=== PATIENT | female | born 1960 | race Caucasian/White ===

== ENCOUNTER 2017-04-21 06:56 | Inpatient (IN) | payer MEDICAID ==
[~2017-04-21] VITALS: Ht 152.4 cm; Wt 61.7 kg
[2017-04-21] VITALS (15 sets, daily range): BP systolic 96–150; BP diastolic 47–64
[~2017-04-21 06:56] MED LIST: CEPH-507 GT
--- OUTSIDE RECORDS SUMMARY | 2017-04-21 08:55 | XMS REPORT | Clinical Summary ---
Author Author [facility] Organization [facility] Address Unknown Phone Unavailable Care Team Providers Care Bond Manager Name Role Phone PCP Unavailable Source Comments Some departments are not documenting in the electronic medical record. If you do not see the information that you expected, contact Release of Information in the Health Information Management department at [phone] for further assistance in locating additional records.[facility] Allergies Active Allergy Reactions Severity Noted Date Comments Lisinopril ANAPHYLAXIS High 09/26/2015 Morphine ITCHING Low 09/26/2015 Current Medications Prescription Sig. Disp. Refills Start End Date Status Date carvedilol (COREG) 12.5 1 Tab twice daily with 11/12/19 Active mg tablet meals. Administer per 16 PEG. aspirin 81 mg chewable Take 1 Tab via feeding 11/12/19 Active tablet tube daily. 16 acetaminophen (TYLENOL) 20.3 mL every 4 hours as 11/12/19 Active 160 mg/5 mL oral solution needed (Temp >38.3 C, 16 pain). Administer per PEG. glycopyrrolate (ROBINUL) 1.5 Tabs three times 11/12/19 Active 1 mg tablet daily. Administer per 16 PEG. atorvastatin (LIPITOR) 20 Take 1 Tab via feeding 11/12/19 Active mg tablet tube daily. 16 amLODIPine (NORVASC) 10 Take 1 Tab via feeding 11/12/19 Active mg tablet tube daily. 16 senna/docusate 10 mL by PEG Tube route 11/12/19 Active (SENOKOT-S) 8.8/50 mg /10 twice daily. 16 mL solution vitamins, multi stress 1 Tab daily. Administer 11/12/19 Active formula (STRESS 600) tab per PEG. 16 citalopram 2mg/ml 5 mL daily. Administer 11/12/19 Active (CELEXA) oral solution per PEG. 16 levothyroxine (SYNTHROID) 1 Tab daily. Administer 11/12/19 Active 200 mcg tablet per PEG. 16 folic acid (FOLVITE) 1 mg 2 Tabs daily. 90 Tab 3 11/12/19 Active tablet 16 thiamine (VITAMIN B-1) 1 Tab daily. 90 Tab 3 11/12/19 Active 100 mg tablet 16 cloNIDine (CATAPRES-TTS Apply 1 Patch to top of 4 Patch 12 11/12/19 Active 1) 0.1 mg/day patch skin as directed every 7 16 days. tiZANidine (ZANAFLEX) 2 Take 1 Tab by mouth twice 30 Tab 0 11/12/19 Active mg tabletIndications: daily. hold for sedation 16 MUSCLE SPASTICITY OF Indications: MUSCLE CEREBRAL ORIGIN SPASTICITY OF CEREBRAL ORIGIN Active Problems Problem Noted Date Dermatitis 11/16/2015 Acute cystitis without hematuria 11/16/2015 Subconjunctival hemorrhage of right eye 11/16/2015 Macrocytic anemia 11/16/2015 Essential hypertension 11/16/2015 Cerebral edema (HCC) 09/27/2015 Stroke 09/26/2015 HTN (hypertension) 09/26/2015 Hypothyroid 09/26/2015 Hyponatremia 09/26/2015 Acute respiratory failure (HCC) 09/26/2015 Immunizations Name Dates Previously Given Next Due Flu Vaccine 10/30/2015 Quadrivalent=>3 Yo (Preservative Free) Pneumococcal Vaccine 10/30/2015 (23-Kimberly Adult) Family History Medical History Relation Name Comments Coronary Artery Disease Diabetes Hypertension Thyroid Disease Diabetes Relation Name Status Comments Social History Tobacco Use Types Packs/Day Years Used Date Current Every Day Smoker Cigarettes 0.25 Alcohol Use Drinks/Week oz/Week Comments Yes 1-2 Standard 0.6 - 1.2 drinks or equivalent Sex Assigned at Date Recorded Not on file Last Filed Vital Signs Vital Sign Reading Time Taken Blood Pressure 134/51 11/12/2015 10:25 AM CDT Pulse 68 11/12/2015 10:25 AM CDT Temperature 38.2 C (100.7 F) 11/12/2015 10:25 AM CDT Respiratory Rate - - Oxygen Saturation 100% 11/12/2015 10:25 AM CDT Inhaled Oxygen - - Concentration Weight 70.5 kg (155 lb 6.8 oz) 10/23/2015 6:00 AM CDT Height 160 cm (5' 2.99") 10/23/2015 6:00 AM CDT Body Mass Index 27.54 10/23/2015 6:00 AM CDT Plan of Treatment Health Maintenance Due Date Last Done Comments HEPATITIS C SCREENING 1960 PHYSICAL (COMPREHENSIVE) 1967 EXAM PERTUSSIS VACCINE 1971 TETANUS VACCINE 1977 CERVICAL CANCER SCREENING 1990 BREAST CANCER SCREENING 2000 COLORECTAL CANCER 2010 SCREENING INFLUENZA VACCINE 05/03/2017 10/30/2015 Results Not on filefrom Last 3 Months
[2017-04-21] MEDS ORDERED: PHARMACY TO DOSE IV SCH (09:30)
[2017-04-21] MEDS ORDERED: PIPERACILLIN SODIUM/TAZOBACTAM 4.5 GM in NS (IVPB) 100 ML IV NR (09:39)
--- NOTE | 2017-04-21 09:48 | History & Physical-Hospitalist ---
HPI History of Present Illness: HPI/Chief Complaint HPI: Ms Shelton is 56yoCF who presented to [facility] after being found in respiratory distress at her group home. She is unable to provide me any history at this time so all information is obtained from review of outside records and from RN at [facility] who I personally called. Per records she was found at group home to have thick white secretions via her trach, sats in the 70s, and respiratory rate in the 30s. She was suction and placed on blowby at [facility] and sats increased to 90s. She was found to have a WBC on 20.8, tachycardiac in the 130s, and CXR reportedly showed a pneumonia though report not available to me at this time. Her lactic acid was WNL at [facility]. Blood cultures were reportedly obtained prior to transfer and she was started on cefepime. Source: RN/MD, other (outside records) Exam Limitations: clinical condition Date Seen 04/21/17 Time Seen by Provider: 09:05 Attending Physician Aurora Harvey MD PCP No,Local Physician Referring Physician Date of Admission Apr 21, 2017 at 08:25 Home Medications & Allergies Home Medications Reviewed patient Home Medication Reconciliation Form Allergies Allergies Coded Allergies lisinopril (Verified Allergy, Unknown, 11/12/15) Uncoded Allergies morphin ( Allergy, Unknown, 11/12/15) Past Uyulcxq-Uurpfw-Pupqrr Hx Patient Social History Employed/Student: unemployed Smoking Status: Unknown if Ever Smoked Recent Foreign Travel: No Contact w/other who traveled: No Surgeries Bowel Surgery (PEG, colostomy), Tracheostomy Respiratory Currently Using CPAP: No Currently Using BIPAP: No Cardiovascular Coronary Artery Disease, Hypertension, Peripheral Vascular Neurological Stroke Gastrointestinal Gastroesophageal Reflux Endocrine Endocrine Disorders: Hypothyroidsim Psychosocial Behavioral Health Disorders: Anxiety, Depression Family Medical History Other Significan Family Hx: Unable to obtain due to clinical condition Review of Systems ROS-Unable to Obtain: Due to clinical condition Constitutional: other (unable to obtain) Physical Exam Physical Exam Vital Signs Vital Sign - Last 12Hours 04/21/17 08:50 Pulse Ox 100 O2 Delivery Trach Collar O2 Flow Rate 10.00 FiO2 35 Capillary Refill : General Appearance: Chronically ill, Mild Distress HEENT: PERRL/EOMI, No Scleral Icterus (R) Neck: Non Tender, Supple Respiratory: Rhonci (bilaterally, R>L) Cardiovascular: Regular Rate, Rhythm, No Edema, No Murmur Gastrointestinal: Normal Bowel Sounds, Non Tender, Soft Extremity: Normal Capillary Refill, Non Tender, No Calf Tenderness Neurologic/Psychiatric: Alert, Aphasia, Other (left sided hemiplegia) Results Results/Procedures Lab Laboratory Tests 04/21/17 11:00 Assessment/Plan Admission Diagnosis Sepsis due to HCAP Diagnosis/Problems Diagnosis/Problems (1) Sepsis Status: Acute Assessment & Plan: WBC of >20, tachycardiac and tachypneic CXR concerning for PNA/effusion Will start on HCAP coverage, Vanc/Zosyn/Levaquin - Has history of MRSA and Pseudomonas No signs of end organ involvement per labs from OSH Blood cultures from OSH, will get sputum culture from suction here Will repeat labs, ABG, and CXR here has lost access multiple times, consult IV team for PICC Qualifiers: Qualified Codes: A41.9 - Sepsis, unspecified organism (2) Tracheostomy care Status: Chronic Assessment & Plan: Trach following CVA Having significant thick secretions during my exam Discussed with RT to start MAT protocol, prn suctioning and will also start Mucomyst Will consult Pulm for assistance (3) 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
[2017-04-21] MEDS ORDERED: RT-ALBUTEROL SULF 2.5 MG/3 ML PRE-MIX VIAL ONE (09:51)
[2017-04-21] MEDS ORDERED: aCETylcysteine 20% (MUCOMYST) 30ML SOLN VIAL ONE (09:51)
[2017-04-21] MEDS: ENOXAPARIN 40 MG/0.4 ML (LOVENOX) SYR SC SCH (09:54)
[2017-04-21] MEDS ORDERED: RT-ALBUTEROL SULF 2.5 MG/3 ML PRE-MIX VIAL IH PRN (10:15)
[2017-04-21] MEDS: NS IV 1000 ML 1,000 ML IV SCH ×2 (10:18→20:56)
[2017-04-21] MEDS: RT-ALBUTEROL SULF 2.5 MG/3 ML PRE-MIX VIAL IH SCH ×2 (10:21→15:17)
[2017-04-21] MEDS: LEVOFLOXACIN 750 MG/150 ML IV 150 ML IV SCH (10:22)
[2017-04-21] MEDS: aCETylcysteine 20% (MUCOMYST) 30ML SOLN VIAL INH SCH ×4 (10:23→21:57)
[2017-04-21 10:27] LABS: ABG BASE EXCESS 1.5 MMOL/L (-2.5-2.5); ABG HCO3 26 MMOL/L (23-27); ABG OXYGEN SATURATION 98 % (94-100); ABG PCO2 43 MMHG (35-45); ABG PO2 92 MMHG (79-93); ABG TCO2 27.2 MMOL/L (21.0-31.0)
[2017-04-21 10:28] LABS: ALLENS TEST YES-POS; PATIENT TEMP 98.6
[2017-04-21] MEDS ORDERED: VANCOMYCIN INJECTION 1,500 MG in NS IV 500 ML 500 ML IV NR (10:30)
[2017-04-21] MEDS ORDERED: OMEPRAZOLE SUSP PEG (10:38)
[2017-04-21] MEDS ORDERED: ENOX40DI8 SC (10:38)
[2017-04-21] MEDS ORDERED: AMLO10TA2 PEG (10:38)
[2017-04-21] MEDS ORDERED: NEOM28.33 TP (10:38)
[2017-04-21] MEDS ORDERED: HYDR-3816 PEG (10:38)
[2017-04-21] MEDS ORDERED: DULO20CA18 PEG (10:38)
[2017-04-21] MEDS ORDERED: NYST15CR TP (10:38)
[2017-04-21] MEDS ORDERED: LACT1CAP8 PEG (10:38)
[2017-04-21] MEDS ORDERED: [UNRECOGNIZED DRUG - CODE] TP (10:38)
[2017-04-21] MEDS ORDERED: [UNRECOGNIZED DRUG - OTHER] TOP (10:38)
[2017-04-21] MEDS ORDERED: LEVO50TA6 PEG (10:38)
[2017-04-21] MEDS ORDERED: LEVO200T6 PEG (10:38)
[2017-04-21] MEDS ORDERED: PROT946L PEG (10:38)
--- NOTE | 2017-04-21 11:04 | Diagnostic Imaging Report ---
INDICATION: Respiratory distress. COMPARISON: 12/26/2015. FINDINGS: Single frontal radiographic view of the chest was obtained and demonstrates normal cardiac silhouette and pulmonary vasculature. Tracheostomy tube is present with tip at the clavicular heads. There has been interval development of patchy airspace disease within the left base, partially obscuring the left hemidiaphragm. Small effusions cannot be excluded. There is no large pneumothorax. Bony structures show no gross acute abnormalities. IMPRESSION: 1. Findings concerning for new patchy infiltrate in the left base. Followup is recommended. Dictated by: Dictated on workstation # [id number]
[2017-04-21 11:05] LABS: BASOPHILS % (AUTO) 0 % (0-10); EOSINOPHILS % (AUTO) 0 % (0-10); LYMPHOCYTES # (AUTO) 1.1 X 10^3 (1.0-4.0); LYMPHOCYTES % (AUTO) 12 % (12-44); MEAN CORPUSCULAR HEMOGLOBIN 32 PG (25-34); MEAN CORPUSCULAR HGB CONC 33 G/DL (32-36); MEAN CORPUSCULAR VOLUME 97 FL (80-99); MEAN PLATELET VOLUME 11.9 FL (7.4-10.4); MONOCYTES # (AUTO) 0.5 X 10^3 (0.0-1.0); MONOCYTES % (AUTO) 5 % (0-12); NEUTROPHILS # (AUTO) 7.5 X 10^3 (1.8-7.8); NEUTROPHILS % (AUTO) 82 % (42-75); PLATELET COUNT 148 10^3/uL (130-400); RED BLOOD COUNT 3.43 10^6/uL (4.35-5.85); RED CELL DISTRIBUTION WIDTH 13.4 % (10.0-14.5); WHITE BLOOD COUNT 9.1 10^3/uL (4.3-11.0)
[2017-04-21 11:25] LABS: CALCIUM 8.9 MG/DL (8.5-10.1); CREATININE SERUM 1.03 MG/DL (0.60-1.30); POTASSIUM 4.5 MMOL/L (3.6-5.0)
--- NOTE | 2017-04-21 12:07 | Pulmonary Consultation ---
History of Present Illness History of Present Illness Date of Consultation 04/21/17 12:01 Time Seen by Provider: 12:01 Date of Admission History of Present Illness 56yo with hx of tracheostomy presented to [facility] secondary to progressive respiratory distress at [facility]. She has been having thick white secretions per tracheostomy tube. Sp02 was found to be in the 70's and RR was in the 30's. Labs and radiology reviewed. She has no leukocytosis and CXR shows some infiltration LLL. Unable to obtain ROS. I am consulted for pulmonary management. Allergies and Home Medications Allergies Coded Allergies: lisinopril (Verified Allergy, Unknown, 11/12/15) Uncoded Allergies: morphin (Allergy, Unknown, 11/12/15) Home Medications Amlodipine Besylate 10 Mg Tablet, 10 MG PEG DAILY, (Reported) HOLD AND NOTIFY PHYSICIAN FOR SBP <100 AND HR <60 Duloxetine HCl 20 Mg Capsule.dr, 20 MG PEG DAILY, (Reported) Enoxaparin Sodium 40 Mg/0.4 Ml Syringe, 40 MG SC DAILY, (Reported) Hydrocodone/Acetaminophen 1 Each Tablet, 1 TAB PEG DAILY PRN for PAIN-MODERATE, (Reported) Lactobacillus Acidophilus 1 Each Capsule, 1 CAP PEG DAILY, (Reported) Levothyroxine Sodium 200 Mcg Tablet, 200 MCG PEG DAILY, (Reported) TAKES ALONG WITH 50MCG TABLET FOR A TOTAL DAILY DOSE OF 250MCG Levothyroxine Sodium 50 Mcg Tablet, 50 MCG PEG DAILY, (Reported) TAKES ALONG WITH 200MCG TABLET FOR A TOTAL DAILY DOSE OF 250MCG Neomycin Huizar/Bacitrac Zn/Poly 28.3 Gm Oint...g., TP DAILY, (Reported) APPLY TO AROUND PEG TUBE DAILY FOR REDNESS UNTIL HEALED Nystatin 15 Gm Cream..g., TP BID, (Reported) Protein Supplement 946 Ml Liquid, 30 ML PEG DAILY, (Reported) Pyrithione Zinc 207 Ml Shampoo, TP TuThSa, (Reported) [Omeprazole Susp] , 20 MG PEG DAILY, (Reported) [Skin Prep Wipes] , TOP BID, (Reported) APPLY TO HEELS Past Hkaluzv-Zujdcd-Dtbxup Hx Patient Social History Smoking Status: Unknown if Ever Smoked Recent Foreign Travel: No Contact w/Someone Who Travel: No Surgeries Surgeries: Bowel Surgery (PEG, colostomy), Tracheostomy Respiratory Respiratory Disorders: Asthma, COPD Currently Using CPAP: No Currently Using BIPAP: No Cardiovascular Cardiac Disorders: Coronary Artery Disease, Hypertension, Peripheral Vascular Neurological Neurological Disorders: Stroke Gastrointestinal Gastrointestinal Disorders: Gastroesophageal Reflux Endocrine Endocrine Disorders: Hypothyroidsim Psychosocial Behavioral Health Disorders: Anxiety, Depression Review of Systems Time Seen by Provider: 06:18 Exam Exam Vital Signs Date Time Temp Pulse Resp B/P (MAP) Pulse Ox O2 Delivery O2 Flow Rate FiO2 04/21/17 10:23 100 Trach Collar 10.00 35 04/21/17 08:50 100 Trach Collar 10.00 35 04/21/17 08:17 89 General Appearance: Chronically ill, Mild Distress HEENT: PERRL/EOMI, No Scleral Icterus (R) Neck: Non Tender, Supple Respiratory: Rhonci (bilaterally, R>L) Cardiovascular: Regular Rate, Rhythm, No Edema, No Murmur Gastrointestinal: non tender, soft, no organomegaly Extremity: Normal Capillary Refill, Non Tender, No Calf Tenderness Neurologic/Psychiatric: Alert, Aphasia, Other (left sided hemiplegia) Skin: Normal Color, Warm/Dry Lymphatic: No Adenopathy Results Lab Laboratory Tests 04/21/17 11:00 Assessment/Plan Assessment/Plan Acute respiratory distress probably secondary to mucous plugging and pneumonia -Continue SVNS with duoneb and mucomyst -frequent Tracheal suctioning -High flow oxygen with humidity -IVF NS 100cc/hr Mucous plugging with copious amounts of sputum -DuoNeb Q4 with Mucomyst. PNA with sepsis -Continue Abx for now await cultures -- vanco, cefepime, and Levaquin Hx of CVA 09/2015 which led to her having a chronic tracheostomy tube and PEG tube -From [facility] (pt has court appt KENNETH Nolasco ) -Pt has a size 6 cuffed unfenestrated tracheostomy tube -According to patient tracheostomy tube was changed out 4 months ago -Currently cuff is inflated pt states cuff is not always inflated Chronic debility Aphasia 255 Diagnosis/Problems Problems/Diagonsis (1) Sepsis Status: Acute Assessment & Plan: WBC of >20, tachycardiac and tachypneic CXR concerning for PNA/effusion Will start on HCAP coverage, Vanc/Zosyn/Levaquin - Has history of MRSA and Pseudomonas No signs of end organ involvement per labs from OSH Blood cultures from OSH, will get sputum culture from suction here Will repeat labs, ABG, and CXR here has lost access multiple times, consult IV team for PICC Qualifiers: Qualified Codes: A41.9 - Sepsis, unspecified organism (2) Tracheostomy care Status: Chronic Assessment & Plan: Trach following CVA Having significant thick secretions during my exam Discussed with RT to start MAT protocol, prn suctioning and will also start Mucomyst Will consult Pulm for assistance (3) 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
[2017-04-21] MEDS ORDERED: methylPREDNISolone 125 MG (Solu-MEDROL) VIAL IVP ONE (16:00)
[2017-04-21] MEDS ORDERED: RT-ALBUTEROL/IPRATROPIUM 3 ML (DUONEB) VIAL INH PRN (16:15)
[2017-04-21] MEDS: PIPERACILLIN SODIUM/TAZOBACTAM 4.5 GM in NS (IVPB) 100 ML IV SCH (16:23)
[2017-04-21] MEDS: RT-ALBUTEROL/IPRATROPIUM 3 ML (DUONEB) VIAL INH SCH ×2 (18:38→21:57)
[2017-04-21] MEDS: HYDROcodone/APAP 7.5 MG/325 MG (LORTAB, LORCET PLUS) TABLET PO PRN (21:11)
[2017-04-21] MEDS: VANCOMYCIN 1 GM/NS 250 ML IVPB IV SCH ×2 (21:11)
[2017-04-21] MEDS: NYSTATIN CREAM (MYCOSTATIN) 30 GM TUBE TP SCH (21:11)
[2017-04-21] MEDS: methylPREDNISolone 40 MG/ML (Solu-MEDROL) VIAL IV SCH (21:11)
[2017-04-22] VITALS (24 sets, daily range): BP systolic 95–159; BP diastolic 39–85
[2017-04-22] MEDS: PIPERACILLIN SODIUM/TAZOBACTAM 4.5 GM in NS (IVPB) 100 ML IV SCH ×3 (00:39→15:44)
[2017-04-22] MEDS: NS IV 1000 ML 1,000 ML IV SCH (00:42)
[2017-04-22] MEDS: RT-ALBUTEROL/IPRATROPIUM 3 ML (DUONEB) VIAL INH SCH ×6 (02:12→22:52)
[2017-04-22] MEDS: aCETylcysteine 20% (MUCOMYST) 30ML SOLN VIAL INH SCH ×6 (02:12→22:53)
[2017-04-22 04:02] LABS: BASOPHILS % (AUTO) 0 % (0-10); EOSINOPHILS % (AUTO) 0 % (0-10); LYMPHOCYTES # (AUTO) 0.2 X 10^3 (1.0-4.0); LYMPHOCYTES % (AUTO) 6 % (12-44); MEAN CORPUSCULAR HEMOGLOBIN 32 PG (25-34); MEAN CORPUSCULAR HGB CONC 33 G/DL (32-36); MEAN CORPUSCULAR VOLUME 97 FL (80-99); MONOCYTES % (AUTO) 1 % (0-12); NEUTROPHILS # (AUTO) 3.1 X 10^3 (1.8-7.8); NEUTROPHILS % (AUTO) 93 % (42-75); PLATELET COUNT 133 10^3/uL (130-400); RED BLOOD COUNT 2.89 10^6/uL (4.35-5.85); RED CELL DISTRIBUTION WIDTH 13.2 % (10.0-14.5); WHITE BLOOD COUNT 3.3 10^3/uL (4.3-11.0)
[2017-04-22 04:19] LABS: ALBUMIN 2.8 GM/DL (3.2-4.5); BILIRUBIN,TOTAL 0.3 MG/DL (0.1-1.0); CALCIUM 8.8 MG/DL (8.5-10.1); CREATININE SERUM 1.12 MG/DL (0.60-1.30); POTASSIUM 3.2 MMOL/L (3.6-5.0); TOTAL PROTEIN 5.6 GM/DL (6.4-8.2)
[2017-04-22 04:40] LABS: BAND NEUTROPHILS 0 %; BASOPHILS % (MANUAL) 0 %; EOSINOPHILS % (MANUAL) 0 %; LYMPHOCYTES % (MANUAL) 3 %; NEUTROPHILS % (MANUAL) 96 %
[2017-04-22 04:41] LABS: ANISOCYTOSIS SLIGHT; POLYCHROMASIA SLIGHT; TEAR DROP CELLS SLIGHT
[2017-04-22] MEDS: POTASSIUM CL 10MEQ/50ML IVPB 50 ML IV SCH ×7 (05:36→11:33)
[2017-04-22] MEDS: methylPREDNISolone 40 MG/ML (Solu-MEDROL) VIAL IV SCH ×4 (05:36→22:13)
[2017-04-22] MEDS: MAGNESIUM 1 GM/100 ML IVPB 100 ML IV SCH ×3 (05:36→06:44)
--- NOTE | 2017-04-22 06:08 | Pulmonary Progress Note ---
Subjective Time Seen by Provider: 06:12 Subjective/Events-last exam PT is doing better today she is only on 21 % oxygen via high flow. Exam Exam Vital Signs Date Time Temp Pulse Resp B/P (MAP) Pulse Ox O2 Delivery O2 Flow Rate FiO2 04/22/17 05:00 97 22 117/47 98 Trach Collar 21.00 8.00 04/22/17 04:00 99 Trach Collar 8.00 21 04/22/17 04:00 98.8 04/22/17 04:00 98 24 117/53 100 Trach Collar 21.00 8.00 04/22/17 03:00 104 26 103/60 100 Trach Collar 21.00 8.00 04/22/17 02:12 100 Trach Collar 8.00 28 04/22/17 02:00 93 16 97/39 100 Trach Collar 28.00 8.00 04/22/17 01:00 85 17 95/44 100 Trach Collar 28.00 8.00 04/22/17 00:55 93 04/22/17 00:48 97.9 Trach Collar 28.00 8.00 04/22/17 00:00 90 16 106/47 100 Trach Collar 28.00 8.00 04/22/17 00:00 97 Trach Collar 8.00 28 04/21/17 23:00 96 21 99/49 100 Trach Collar 28.00 8.00 04/21/17 22:00 89 20 108/51 100 Trach Collar 28.00 8.00 04/21/17 21:58 100 Trach Collar 8.00 28 04/21/17 21:00 80 24 113/52 100 Trach Collar 28.00 8.00 04/21/17 20:00 82 26 110/47 100 Trach Collar 28.00 8.00 04/21/17 20:00 95 Trach Collar 8.00 28 04/21/17 19:32 98.1 87 22 115/55 100 Trach Collar 28.00 8.00 04/21/17 19:00 84 26 115/55 100 Trach Collar 28.00 8.00 04/21/17 19:00 84 04/21/17 18:39 100 Trach Collar 8.00 30 04/21/17 18:00 113/53 04/21/17 18:00 86 22 100 Trach Collar 30.00 8.00 04/21/17 17:00 79 29 109/64 100 Trach Collar 30.00 8.00 04/21/17 16:00 Trach Collar 04/21/17 16:00 91 41 100 Trach Collar 30.00 8.00 04/21/17 16:00 97.0 04/21/17 15:17 97 Trach Collar 8.00 30 04/21/17 15:00 87 30 111/55 100 Trach Collar 30.00 8.00 04/21/17 14:00 107 23 116/59 96 Trach Collar 30.00 8.00 04/21/17 13:00 92 20 114/54 98 Trach Collar 30.00 8.00 04/21/17 13:00 96 04/21/17 12:30 98.1 04/21/17 12:00 98.1 04/21/17 12:00 96 90 Trach Collar 30.00 8.00 04/21/17 11:00 108 116/47 97 Trach Collar 30.00 8.00 04/21/17 10:23 100 Trach Collar 10.00 35 04/21/17 10:00 123 13 150/60 95 Trach Collar 30.00 8.00 04/21/17 09:15 90 28 96/48 98 Trach Collar 30.00 15.00 04/21/17 08:50 100 Trach Collar 10.00 35 04/21/17 08:17 89 04/21/17 08:15 99.6 84 24 106/54 100 Trach Collar 2.00 General Appearance: Chronically ill, Mild Distress HEENT: PERRL/EOMI, No Scleral Icterus (R) Neck: Non Tender, Supple Respiratory: Rhonci (bilaterally, R>L) Cardiovascular: Regular Rate, Rhythm, No Edema, No Murmur Gastrointestinal: non tender, soft, no organomegaly, no pulsatile mass Extremity: Normal Capillary Refill, Non Tender, No Calf Tenderness Neurologic/Psychiatric: Alert, Aphasia, Other (left sided hemiplegia) Skin: Normal Color, Warm/Dry Lymphatic: No Adenopathy Results Lab Laboratory Tests 04/21/17 11:00 04/22/17 03:50 Assessment/Plan Assessment/Plan Acute respiratory distress probably secondary to mucous plugging and pneumonia -Continue SVNS with duoneb and mucomyst -frequent Tracheal suctioning -High flow oxygen with humidity -IVF NS 100cc/hr Mucous plugging with copious amounts of sputum -Will do bronchoscopy today -RN/RT are suctioning every hour -DuoNeb Q4 with Mucomyst. PNA with sepsis -Continue Abx for now await cultures -- vanco, cefepime, and Levaquin Hx of CVA 09/2015 which led to her having a chronic tracheostomy tube and PEG tube -From [facility] (pt has court appt POA Reta Nolasco ) -Pt has a size 6 cuffed unfenestrated tracheostomy tube -According to patient tracheostomy tube was changed out 4 months ago -Currently cuff is inflated pt states cuff is not always inflated Metabolic acidosis -Monitor Hypokalemia and hypomagnesium -replace Chronic debility Aphasia 233 Clinical Quality Measures DVT/VTE Risk/Contraindication: Risk Factor Score Per Nursin RFS Level Per Nursing on Admit: 4+=Very High JONATHAN BASSETT DO Apr 22, 2017 06:08
--- NOTE | 2017-04-22 07:51 | Progress Note-Hospitalist ---
Subjective HPI/CC On Admission Date Seen by Provider: Apr 22, 2017 Time Seen by Provider: 07:15 HPI: Ms Shelton is 56yoCF who presented to [facility]. She is unable to provide me any history at this time so all information is obtained from review of outside records and from RN at [facility] who I personally called. Per records she was found at prison to have thick white secretions via her trach, sats in the 70s, and respiratory rate in the 30s. She was suction and placed on blowby at [facility] and sats increased to 90s. She was found to have a WBC on 20.8, tachycardiac in the 130s, and CXR reportedly showed a pneumonia though report not available to me at this time. Her lactic acid was WNL at [facility]. Blood cultures were reportedly obtained prior to transfer and she was started on cefepime. Subjective/Events-last exam Pt reports feeling better from yesterday. She was unable to communicate with me in also any fashion yesterday. Since then she has been able to answer some yes and no questions. She has no complaints today. She understands the plan for a bronch today. Objective Exam Vital Signs Vital Sign - Last 12Hours 04/21/17 04/21/17 08:15 08:50 Temp 99.6 Pulse 84 Resp 24 B/P (MAP) 106/54 Pulse Ox 100 O2 Delivery Trach Collar O2 Flow Rate 2.00 FiO2 35 Capillary Refill : General Appearance: No Apparent Distress, WD/WN Respiratory: No Accessory Muscle Use, No Respiratory Distress, Rhonci Cardiovascular: Regular Rate, Rhythm, No Edema, No Murmur Gastrointestinal: Non Tender, Soft, Other (PEG and colostomy in place) Extremity: Non Tender, No Calf Tenderness, No Pedal Edema Neurologic/Psychiatric: Alert, Aphasia, Motor Weakness (left side), Other ( appears appropriately oriented) Results/Procedures Lab Laboratory Tests 04/21/17 11:00 04/22/17 03:50 Assessment/Plan Assessment and Plan Assess & Plan/Chief Complaint See Problems Diagnosis/Problems Diagnosis/Problems (1) HCAP (healthcare-associated pneumonia) Assessment & Plan: Sepsis resolved since admission Continue on Vanc/Zosyn/Levaquin Plan for Bronch today Await culture results from outside hospital (2) Sepsis Status: Resolved Qualifiers: Qualified Codes: A41.9 - Sepsis, unspecified organism (3) Tracheostomy care Status: Chronic Assessment & Plan: Trach following CVA Discussed with RT to start MAT protocol, prn suctioning and Mucomyst Will consult Pulm for assistance Plan for Bronch today (4) Metabolic acidosis Status: Acute Assessment & Plan: No gap Likely due to hyperchloremia Will adjust fluids (5) Hypokalemia Status: Acute Assessment & Plan: On K protocol (6) 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 Status: Chronic Assessment & Plan: s/p CVA Has trach, peg, colostomy Aphasia Left sided hemiplegia reportedly has court appointed guardian (7) CAD (coronary artery disease) Status: Chronic Assessment & Plan: Continue home meds (8) Essential (primary) hypertension Status: Chronic Assessment & Plan: BP well controlled, continue home meds (9) Hypothyroidism Status: Chronic Assessment & Plan: Continue home meds (10) Major depression Status: Chronic Assessment & Plan: Continue Sertaline (11) Prophylactic measure Assessment & Plan: Lovenox 1/2 NS at 100ml/hr NPO for now then resume tube feeds after bronch AURORA RUCKER MD Apr 22, 2017 07:51
[2017-04-22] MEDS: LEVOTHYROXINE 100 MCG (LEVOTHROID) TAB PEG SCH (08:56)
[2017-04-22] MEDS: DULoxetine 20 MG (CYMBALTA) CAP PEG SCH (08:56)
[2017-04-22] MEDS: LEVOTHYROXINE 50 MCG (LEVOTHROID) TAB PEG SCH (08:57)
[2017-04-22] MEDS: LACTOBACILLUS Acidoph/Bulgar 1 GM (LACTINEX) PACKET PEG SCH (08:58)
[2017-04-22] MEDS: NYSTATIN CREAM (MYCOSTATIN) 30 GM TUBE TP SCH ×2 (08:59→21:49)
[2017-04-22] MEDS: NEO/POLY/BAC (NEOSPORIN) OINT 15 GM TUBE TP SCH (08:59)
[2017-04-22] MEDS: ENOXAPARIN 40 MG/0.4 ML (LOVENOX) SYR SC SCH (08:59)
[2017-04-22] MEDS ORDERED: TROUGH ORDER-PHARMACY XX NR (09:00)
[2017-04-22] MEDS ORDERED: OMEPRAZOLE 20 MG PEG SCH (09:00)
[2017-04-22] MEDS: PANTOPRAZOLE 2 MG/ML LIQUID 200 ML (PROTONIX) PEG SCH ×3 (09:15)
[2017-04-22] MEDS: 1/2 NS IV SOLUTION 1,000 ML IV SCH ×2 (09:16→20:15)
--- NOTE | 2017-04-22 09:36 | Diagnostic Imaging Report ---
INDICATION: Pneumonia, shortness of breath. TECHNIQUE: Single view chest 3:23 AM. CORRELATION STUDY: 04/21/2017 FINDINGS: Tracheostomy tube remains in place. A right-sided central line has been placed since prior study tip at the expected location of the cavoatrial junction. Heart size, mediastinal and vasculature within normal limits. Lung ferrell overall relatively clear of infiltrate. Small effusions however do appear to be present. IMPRESSION: 1. Placement of right-sided central line. No pneumothorax. 2. Likely trace pleural effusions. No definitive infiltrate on followup. Dictated by: Dictated on workstation # [id number]
[2017-04-22] MEDS: VANCOMYCIN 1 GM/NS 250 ML IVPB IV SCH ×2 (11:06)
[2017-04-22] MEDS: LEVOFLOXACIN 750 MG/150 ML IV 150 ML IV SCH (11:26)
[2017-04-22] MEDS: HYDROcodone/APAP 7.5 MG/325 MG (LORTAB, LORCET PLUS) TABLET PO PRN (18:57)
[2017-04-23] VITALS (16 sets, daily range): BP systolic 120–162; BP diastolic 42–75
[2017-04-23] MEDS: PIPERACILLIN SODIUM/TAZOBACTAM 4.5 GM in NS (IVPB) 100 ML IV SCH ×3 (00:15→16:56)
[2017-04-23] MEDS: aCETylcysteine 20% (MUCOMYST) 30ML SOLN VIAL INH SCH ×6 (02:50→22:29)
[2017-04-23] MEDS: RT-ALBUTEROL/IPRATROPIUM 3 ML (DUONEB) VIAL INH SCH ×6 (02:50→22:29)
[2017-04-23] MEDS: methylPREDNISolone 40 MG/ML (Solu-MEDROL) VIAL IV SCH ×4 (04:21→22:44)
[2017-04-23 05:00] LABS: BASOPHILS % (AUTO) 0 % (0-10); EOSINOPHILS % (AUTO) 0 % (0-10); LYMPHOCYTES # (AUTO) 0.5 X 10^3 (1.0-4.0); LYMPHOCYTES % (AUTO) 7 % (12-44); MEAN CORPUSCULAR HEMOGLOBIN 32 PG (25-34); MEAN CORPUSCULAR HGB CONC 33 G/DL (32-36); MEAN CORPUSCULAR VOLUME 96 FL (80-99); MEAN PLATELET VOLUME 12.1 FL (7.4-10.4); MONOCYTES # (AUTO) 0.2 X 10^3 (0.0-1.0); MONOCYTES % (AUTO) 3 % (0-12); NEUTROPHILS % (AUTO) 89 % (42-75); PLATELET COUNT 146 10^3/uL (130-400); RED BLOOD COUNT 3.15 10^6/uL (4.35-5.85); RED CELL DISTRIBUTION WIDTH 13.4 % (10.0-14.5); WHITE BLOOD COUNT 6.7 10^3/uL (4.3-11.0)
[2017-04-23 05:24] LABS: ALBUMIN 3.1 GM/DL (3.2-4.5); BILIRUBIN,TOTAL 0.3 MG/DL (0.1-1.0); CALCIUM 9.2 MG/DL (8.5-10.1); CREATININE SERUM 1.03 MG/DL (0.60-1.30); POTASSIUM 3.2 MMOL/L (3.6-5.0); TOTAL PROTEIN 6.1 GM/DL (6.4-8.2)
[2017-04-23 05:28] LABS: MAGNESIUM 1.7 MG/DL (1.8-2.4); PHOSPHORUS 3.1 MG/DL (2.3-4.7)
[2017-04-23] MEDS: POTASSIUM CL 10MEQ/50ML IVPB 50 ML IV SCH ×5 (05:55→11:03)
[2017-04-23] MEDS: MAGNESIUM 1 GM/100 ML IVPB 100 ML IV SCH ×3 (06:00→07:00)
[2017-04-23] MEDS: 1/2 NS IV SOLUTION 1,000 ML IV SCH (06:07)
[2017-04-23] MEDS ORDERED: POTASSIUM CHLORIDE INJ 20 MEQ in 1/2 NS IV SOLUTION 1,000 ML IV SCH (06:27)
--- NOTE | 2017-04-23 06:32 | Pulmonary Progress Note ---
Subjective Time Seen by Provider: 06:31 Subjective/Events-last exam PT is still producing a lot of mucous. Exam Exam Vital Signs Date Time Temp Pulse Resp B/P (MAP) Pulse Ox O2 Delivery O2 Flow Rate FiO2 04/23/17 06:00 74 13 132/59 100 Trach Collar 21.00 8.00 04/23/17 05:00 51 18 144/54 100 Trach Collar 21.00 8.00 04/23/17 04:00 100 Trach Collar 8.00 21 04/23/17 04:00 97.2 68 16 138/44 99 Trach Collar 21.00 8.00 04/23/17 03:00 93 19 133/56 99 Trach Collar 21.00 8.00 04/23/17 02:50 100 Trach Collar 8.00 21 04/23/17 02:00 65 14 130/42 100 Trach Collar 21.00 8.00 04/23/17 01:00 93 04/23/17 01:00 80 18 133/57 100 Trach Collar 21.00 8.00 04/23/17 00:00 100 Trach Collar 8.00 21 04/23/17 00:00 97.3 76 18 137/51 99 Trach Collar 21.00 8.00 04/22/17 23:00 89 21 145/75 100 Trach Collar 21.00 8.00 04/22/17 22:53 100 Trach Collar 8.00 21 04/22/17 22:00 88 26 125/47 96 Trach Collar 21.00 8.00 04/22/17 21:00 65 17 135/55 100 Trach Collar 21.00 8.00 04/22/17 20:00 98.6 91 16 129/81 99 Trach Collar 21.00 8.00 04/22/17 20:00 100 Trach Collar 8.00 21 04/22/17 19:11 99 Trach Collar 8.00 21 04/22/17 19:00 105 19 129/85 99 Trach Collar 21.00 8.00 04/22/17 19:00 101 04/22/17 18:00 94 18 150/62 100 Trach Collar 21.00 8.00 04/22/17 17:00 106 11 159/60 99 Trach Collar 21.00 8.00 04/22/17 16:02 100 Trach Collar 8.00 21 04/22/17 16:00 98.8 04/22/17 16:00 117 8 151/66 99 Trach Collar 21.00 8.00 04/22/17 15:00 102 17 149/74 99 Trach Collar 21.00 8.00 04/22/17 14:00 100 27 122/76 100 Trach Collar 21.00 8.00 04/22/17 13:53 100 Trach Collar 8.00 21 04/22/17 13:00 96 22 139/45 100 Trach Collar 21.00 8.00 04/22/17 13:00 97 04/22/17 12:20 100 Trach Collar 8.00 21 04/22/17 12:00 98.5 04/22/17 12:00 98 26 134/61 100 Trach Collar 21.00 8.00 04/22/17 11:00 93 21 134/60 99 Trach Collar 21.00 8.00 04/22/17 10:00 102 18 139/58 100 Trach Collar 21.00 8.00 04/22/17 09:53 95 Trach Collar 8.00 21 04/22/17 09:00 92 26 122/48 100 Trach Collar 21.00 8.00 04/22/17 08:30 100 Trach Collar 8.00 21 04/22/17 08:00 101 12 130/51 100 Trach Collar 21.00 8.00 04/22/17 08:00 98.4 04/22/17 07:00 96 04/22/17 07:00 102 18 125/53 100 Trach Collar 21.00 8.00 04/22/17 06:28 100 Trach Collar 8.00 21 General Appearance: No Apparent Distress, WD/WN, Anxious HEENT: PERRL/EOMI, No Scleral Icterus (R) Neck: Non Tender, Supple Respiratory: No Accessory Muscle Use, No Respiratory Distress, Rhonci Cardiovascular: Regular Rate, Rhythm, No Edema, No Murmur Gastrointestinal: non tender, soft, no organomegaly Extremity: Non Tender, No Calf Tenderness, No Pedal Edema Neurologic/Psychiatric: Alert, Aphasia, Motor Weakness (left side), Other ( appears appropriately oriented) Skin: Normal Color, Warm/Dry Lymphatic: No Adenopathy Results Lab Laboratory Tests 04/21/17 11:00 04/22/17 03:50 04/23/17 04:20 Assessment/Plan Assessment/Plan Acute respiratory distress probably secondary to mucous plugging and pneumonia -Continue SVNS with duoneb and mucomyst -frequent Tracheal suctioning -High flow oxygen with humidity -IVF NS 100cc/hr Mucous plugging with copious amounts of sputum -RN/RT are suctioning every hour -DuoNeb Q4 with Mucomyst. PNA with sepsis -Continue Abx for now await cultures ---D/C Vanco and Levaquin/zosyn C&S reviewed Hx of CVA 09/2015 which led to her having a chronic tracheostomy tube and PEG tube -From [facility] (pt has court appt KENNETH Reta Gaurav ) -Pt has a size 6 cuffed unfenestrated tracheostomy tube -According to patient tracheostomy tube was changed out 4 months ago -Currently cuff is inflated pt states cuff is not always inflated Hypokalemia and hypomagnesium -replace -Add KCL to IVF Chronic debility Aphasia Will transfer to ICU stepdown. Consider [facility] pt still continues to have copious amounts of secretions. Will keep in ICU stepdown to monitor secretions and trach care. 233 Clinical Quality Measures DVT/VTE Risk/Contraindication: Risk Factor Score Per Nursin RFS Level Per Nursing on Admit: 4+=Very High JONATHAN BASSETT DO Apr 23, 2017 06:32
[2017-04-23] MEDS: PANTOPRAZOLE 2 MG/ML LIQUID 200 ML (PROTONIX) PEG SCH ×3 (07:41)
--- NOTE | 2017-04-23 08:05 | Progress Note-Hospitalist ---
Subjective HPI/CC On Admission Date Seen by Provider: Apr 23, 2017 Time Seen by Provider: 07:35 HPI: Ms Shelton is 56yoCF who presented to [facility] after being found in respiratory distress at her halfway. She is unable to provide me any history at this time so all information is obtained from review of outside records and from RN at [facility] who I personally called. Per records she was found at halfway to have thick white secretions via her trach, sats in the 70s, and respiratory rate in the 30s. She was suction and placed on blowby at [facility] and sats increased to 90s. She was found to have a WBC on 20.8, tachycardiac in the 130s, and CXR reportedly showed a pneumonia though report not available to me at this time. Her lactic acid was WNL at [facility]. Blood cultures were reportedly obtained prior to transfer and she was started on cefepime. Subjective/Events-last exam Upon entering room patient had just finished getting suctioned and seemed very uncomfortable. She was indicating that she wanted us to stop suctioning. I discussed options for care if we were to stop suctioning and direct our goals towards comfort. She became veyr tearful and shook her head "no." When I stated explicitly that stopping suctioning her trach may mean we were facing the end of her life she emphatically shook her head no and agreed to continuing prn suctions. Objective Exam Vital Signs Vital Sign - Last 12Hours 04/21/17 04/21/17 08:15 08:50 Temp 99.6 Pulse 84 Resp 24 B/P (MAP) 106/54 Pulse Ox 100 O2 Delivery Trach Collar O2 Flow Rate 2.00 FiO2 35 Capillary Refill : General Appearance: Mild Distress, Other (tearful) HEENT: Other (trach in place) Respiratory: Normal Breath Sounds Cardiovascular: Regular Rate, Rhythm, No Murmur Gastrointestinal: Non Tender, Soft, Other (PEG, colostomy in place) Neurologic/Psychiatric: Alert, Aphasia, Other (left side hemiplegia) Results/Procedures Lab Laboratory Tests 04/23/17 04:20 Assessment/Plan Assessment and Plan Assess & Plan/Chief Complaint See Problems Diagnosis/Problems Diagnosis/Problems (1) HCAP (healthcare-associated pneumonia) Assessment & Plan: Sepsis resolved since admission Morganella Morganii on culture, sensitive to Zosyn Second GNR not yet identified On Zosyn/Levaquin, Vanc DC'd today Await culture results from outside hospital Blood cultures here are negative (2) Tracheostomy care Status: Chronic Assessment & Plan: Trach following CVA Discussed with RT to start MAT protocol, prn suctioning and Mucomyst Will consult Pulm for assistance [place] consulted for evaluation (3) Metabolic acidosis Status: Resolved Assessment & Plan: Improved with fluids (4) Hypokalemia Status: Acute Assessment & Plan: On K protocol (5) 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 Status: Chronic Assessment & Plan: s/p CVA Has trach, peg, colostomy Aphasia Left sided hemiplegia reportedly has court appointed guardian PT/OT (6) CAD (coronary artery disease) Status: Chronic Assessment & Plan: Continue home meds (7) Essential (primary) hypertension Status: Chronic Assessment & Plan: BP well controlled, continue home meds (8) Hypothyroidism Status: Chronic Assessment & Plan: Continue home meds (9) Major depression Status: Chronic Assessment & Plan: Continue Sertaline (10) Prophylactic measure Assessment & Plan: Lovenox Saline Lock Will resume home tube feeds Jevity 1.5 at 50cc/hr with FWF 240cc Q6 AURORA RUCKER MD Apr 23, 2017 08:05
[2017-04-23] MEDS: DULoxetine 20 MG (CYMBALTA) CAP PEG SCH (08:21)
[2017-04-23] MEDS: LACTOBACILLUS Acidoph/Bulgar 1 GM (LACTINEX) PACKET PEG SCH (08:21)
[2017-04-23] MEDS: LEVOTHYROXINE 50 MCG (LEVOTHROID) TAB PEG SCH (08:22)
[2017-04-23] MEDS: LEVOTHYROXINE 100 MCG (LEVOTHROID) TAB PEG SCH (08:22)
[2017-04-23] MEDS: NEO/POLY/BAC (NEOSPORIN) OINT 15 GM TUBE TP SCH (08:24)
[2017-04-23] MEDS: NYSTATIN CREAM (MYCOSTATIN) 30 GM TUBE TP SCH ×2 (08:24→22:44)
[2017-04-23] MEDS: ENOXAPARIN 40 MG/0.4 ML (LOVENOX) SYR SC SCH (08:32)
[2017-04-23] MEDS: 1/2 NS W/KCL 20 MEQ/L 1,000 ML IV SCH (08:38)
--- NOTE | 2017-04-23 08:47 | Diagnostic Imaging Report ---
Portable erect AP chest at 5:13 a.m. INDICATION: Respiratory distress. This exam is less than optimal as the heart and left lung base are partially obscured by the patient's left hand. The heart size is within normal limits and stable when compared to 04/22/2017. The lungs are generally clear. There is no sign of failure, pneumonia, or of a significant pleural effusion. The mediastinum is not widened. The osseous structures are intact. The central venous catheter on the right and the tracheostomy tube seen previously are again evident and no different. IMPRESSION: There is no evidence for an acute cardiopulmonary abnormality on this suboptimal exam. When compared to the previous study there has been no adverse change. Dictated by: Dictated on workstation # [id number]
[2017-04-23] MEDS ORDERED: TROUGH ORDER-PHARMACY XX NR (09:00)
[2017-04-23] MEDS: inSUlin ASPART (NovoLOG) 1 UNIT/0.01 ML (CHARGE PER UNIT) SC SCH ×2 (18:06→22:37)
[2017-04-24] VITALS (15 sets, daily range): BP systolic 151–178; BP diastolic 53–84
[2017-04-24] MEDS: PIPERACILLIN SODIUM/TAZOBACTAM 4.5 GM in NS (IVPB) 100 ML IV SCH ×2 (00:07→09:01)
[2017-04-24] MEDS: aCETylcysteine 20% (MUCOMYST) 30ML SOLN VIAL INH SCH ×2 (03:12→06:10)
[2017-04-24] MEDS: RT-ALBUTEROL/IPRATROPIUM 3 ML (DUONEB) VIAL INH SCH ×3 (03:12→09:33)
[2017-04-24] MEDS: 1/2 NS W/KCL 20 MEQ/L 1,000 ML IV SCH (04:42)
[2017-04-24] MEDS: methylPREDNISolone 40 MG/ML (Solu-MEDROL) VIAL IV SCH ×2 (04:43→10:15)
[2017-04-24 05:01] LABS: BASOPHILS % (AUTO) 0 % (0-10); EOSINOPHILS % (AUTO) 0 % (0-10); LYMPHOCYTES # (AUTO) 0.7 X 10^3 (1.0-4.0); LYMPHOCYTES % (AUTO) 6 % (12-44); MEAN CORPUSCULAR HEMOGLOBIN 32 PG (25-34); MEAN CORPUSCULAR HGB CONC 34 G/DL (32-36); MEAN CORPUSCULAR VOLUME 94 FL (80-99); MONOCYTES # (AUTO) 0.8 X 10^3 (0.0-1.0); MONOCYTES % (AUTO) 6 % (0-12); NEUTROPHILS # (AUTO) 10.9 X 10^3 (1.8-7.8); NEUTROPHILS % (AUTO) 88 % (42-75); PLATELET COUNT 192 10^3/uL (130-400); RED BLOOD COUNT 3.68 10^6/uL (4.35-5.85); RED CELL DISTRIBUTION WIDTH 13.5 % (10.0-14.5); WHITE BLOOD COUNT 12.4 10^3/uL (4.3-11.0)
[2017-04-24 05:41] LABS: MAGNESIUM 2.2 MG/DL (1.8-2.4); PHOSPHORUS 2.1 MG/DL (2.3-4.7)
[2017-04-24 05:43] LABS: ALBUMIN 3.5 GM/DL (3.2-4.5); BILIRUBIN,TOTAL 0.3 MG/DL (0.1-1.0); CALCIUM 9.6 MG/DL (8.5-10.1); CREATININE SERUM 1.09 MG/DL (0.60-1.30); POTASSIUM 3.7 MMOL/L (3.6-5.0); TOTAL PROTEIN 6.8 GM/DL (6.4-8.2)
[2017-04-24] MEDS: POTASSIUM CL 10MEQ/50ML IVPB 50 ML IV SCH (06:35)
[2017-04-24] MEDS: MAGNESIUM 1 GM/100 ML IVPB 100 ML IV SCH (06:35)
[2017-04-24] MEDS: inSUlin ASPART (NovoLOG) 1 UNIT/0.01 ML (CHARGE PER UNIT) SC SCH ×2 (06:36→12:20)
[2017-04-24] MEDS ORDERED: PRED10TA22 PO (07:27)
[2017-04-24] MEDS ORDERED: PIPE4.5V IV (07:27)
--- NOTE | 2017-04-24 08:44 | Discharge Summary-Hospitalist ---
Diagnosis/Chief Complaint Date of Admission Apr 21, 2017 at 08:25 Date of Discharge Discharge Date: Apr 24, 2017 Admission Diagnosis Sepsis due to HCAP Discharge Diagnosis See Problems (1) HCAP (healthcare-associated pneumonia) Assessment & Plan: Sepsis resolved Morganella Morganii, Pseudomonas, Enterobacter and on culture, all sensitive to Zosyn On Zosyn, will complete 4 more days at [facility] Blood cultures here are negative Will DC on slow prednisone taper as well (2) Tracheostomy care Status: Chronic Assessment & Plan: Trach following CVA MAT Protocol, Mucomyst Will need prn suctioning at detention Will consult Pulm for assistance (3) Metabolic acidosis Status: Resolved Assessment & Plan: Improved with fluids (4) Hypokalemia Status: Resolved Assessment & Plan: On K protocol (5) 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 Status: Chronic Assessment & Plan: s/p CVA Has trach, peg, colostomy Aphasia Left sided hemiplegia reportedly has court appointed guardian PT/OT (6) CAD (coronary artery disease) Status: Chronic Assessment & Plan: Continue home meds (7) Essential (primary) hypertension Status: Chronic Assessment & Plan: BP well controlled, continue home meds (8) Hypothyroidism Status: Chronic Assessment & Plan: Continue home meds (9) Major depression Status: Chronic Assessment & Plan: Continue Sertaline (10) Prophylactic measure Assessment & Plan: Lovenox Saline Lock Will resume home tube feeds Jevity 1.5 at 50cc/hr with FWF 240cc Q6 Discharge Summary Consultations Dr. Epstein, Pulmonology Discharge Physical Examination Allergies: Coded Allergies: lisinopril (Verified Allergy, Unknown, 11/12/15) Uncoded Allergies: morphin (Allergy, Unknown, 11/12/15) Vitals & I&Os Vital Signs Date Time Temp Pulse Resp B/P (MAP) Pulse Ox O2 Delivery O2 Flow Rate FiO2 04/24/17 06:10 100 Trach Collar 6.00 21 04/24/17 06:00 89 12 171/64 04/24/17 04:00 96.9 Hospital Course Pt presented as transfer from OSH for acute respiratory failure due to HCAP. She was admitted to our ICu and necessitated frequent suctioning and IV steroids , and IV abx. She was started broad spectrum antibiotics on admission and sputum cultures where obtained during deep suctioning. Pulm was consulted for further assistance of trach care and respiratory failure. Antibiotics were deescalated to Zosyn when sensitivities were available. She was transitioned to oral steroids and DC-ed to [facility] home on a slow taper and with 4 more days of abx. Labs (last 24 hrs) Laboratory Tests 04/23/17 13:20: Glucometer 165H 04/23/17 17:50: Glucometer 158H 04/24/17 04:55: White Blood Count 12.4H, Red Blood Count 3.68L, Hemoglobin 11.9, Hematocrit 35, Mean Corpuscular Volume 94, Mean Corpuscular Hemoglobin 32, Mean Corpuscular Hemoglobin Concent 34, Red Cell Distribution Width 13.5, Platelet Count 192, Mean Platelet Volume 12.0H, Neutrophils (%) (Auto) 88H, Lymphocytes (%) (Auto) 6L, Monocytes (%) (Auto) 6, Eosinophils (%) (Auto) 0, Basophils (%) (Auto) 0, Neutrophils # (Auto) 10.9H, Lymphocytes # (Auto) 0.7L, Monocytes # (Auto) 0.8, Eosinophils # (Auto) 0.0, Basophils # (Auto) 0.0, Sodium Level 142, Potassium Level 3.7, Chloride Level 107, Carbon Dioxide Level 23, Anion Gap 12, Blood Urea Nitrogen 27H, Creatinine 1.09, Estimat Glomerular Filtration Rate 52, BUN/ Creatinine Ratio 25, Glucose Level 156H, Calcium Level 9.6, Phosphorus Level 2.1L, Magnesium Level 2.2, Total Bilirubin 0.3, Aspartate Amino Transf (AST/SGOT ) 15, Alanine Aminotransferase (ALT/SGPT) 33, Alkaline Phosphatase 105, Total Protein 6.8, Albumin 3.5 Microbiology 04/21/17 Blood Culture - Preliminary, Resulted No growth 04/21/17 Gram Stain - Final, Complete 04/21/17 Sputum Culture - Final, Complete Morganella Morganii Enterobacter Cloacae Pseudomonas Aeruginosa Pending Labs Laboratory Tests 04/24/17 04:55: White Blood Count 12.4, Red Blood Count 3.68, Hemoglobin 11.9, Hematocrit 35, Mean Corpuscular Volume 94, Mean Corpuscular Hemoglobin 32, Mean Corpuscular Hemoglobin Concent 34, Red Cell Distribution Width 13.5, Platelet Count 192, Mean Platelet Volume 12.0, Neutrophils (%) (Auto) 88, Lymphocytes (%) (Auto) 6, Monocytes (%) (Auto) 6, Eosinophils (%) (Auto) 0, Basophils (%) (Auto) 0, Neutrophils # (Auto) 10.9, Lymphocytes # (Auto) 0.7, Monocytes # (Auto) 0.8, Eosinophils # (Auto) 0.0, Basophils # (Auto) 0.0, Sodium Level 142, Potassium Level 3.7, Chloride Level 107, Carbon Dioxide Level 23, Anion Gap 12, Blood Urea Nitrogen 27, Creatinine 1.09, Estimat Glomerular Filtration Rate 52, BUN/ Creatinine Ratio 25, Glucose Level 156, Calcium Level 9.6, Phosphorus Level 2.1 , Magnesium Level 2.2, Total Bilirubin 0.3, Aspartate Amino Transf (AST/SGOT) 15 , Alanine Aminotransferase (ALT/SGPT) 33, Alkaline Phosphatase 105, Total Protein 6.8, Albumin 3.5 Discharge Home Medications: Active Scripts Active Reported [Skin Prep Wipes] TOP BID APPLY TO HEELS Selsun Blue (Pyrithione Zinc) 207 Ml Shampoo TP TUTHSA [Omeprazole Susp] 20 Mg PEG DAILY Promod (Protein Supplement) 946 Ml Liquid 30 Ml PEG DAILY Nystatin 15 Gm Cream..g. TP BID Enoxaparin Sodium 40 Mg/0.4 Ml Syringe 40 Mg SC DAILY Amlodipine Besylate 10 Mg Tablet 10 Mg PEG DAILY HOLD AND NOTIFY PHYSICIAN FOR SBP <100 AND HR <60 Neosporin Ointment (Neomycin Huizar/Bacitrac Zn/Poly) 28.3 Gm Oint...g. TP DAILY APPLY TO AROUND PEG TUBE DAILY FOR REDNESS UNTIL HEALED Levothyroxine Sodium 50 Mcg Tablet 50 Mcg PEG DAILY TAKES ALONG WITH 200MCG TABLET FOR A TOTAL DAILY DOSE OF 250MCG Levothyroxine Sodium 200 Mcg Tablet 200 Mcg PEG DAILY TAKES ALONG WITH 50MCG TABLET FOR A TOTAL DAILY DOSE OF 250MCG Hydrocodon-Acetaminoph 7.5-325 (Hydrocodone/Acetaminophen) 1 Each Tablet 1 Tab PEG DAILY PRN Duloxetine HCl 20 Mg Capsule. 20 Mg PEG DAILY Acidophilus (Lactobacillus Acidophilus) 1 Each Capsule 1 Cap PEG DAILY Instructions to patient/family Please see electronic discharge instructions given to patient. Clinical Quality Measures DVT/VTE Risk/Contraindication: Risk Factor Score Per Nursin RFS Level Per Nursing on Admit: 4+=Very High AURORA RUCKER MD Apr 24, 2017 08:44
--- NOTE | 2017-04-24 08:51 | Diagnostic Imaging Report ---
Portable upright radiograph of the chest. INDICATION: Dyspnea. FINDINGS: The heart size is at the upper limits of normal. The lungs demonstrate superimposition artifact of the arm with no definite focal infiltrates. No effusion or pneumothorax. The mediastinum and sarai appear unremarkable. IMPRESSION: Borderline cardiac size. No definite focal infiltrate. Dictated by: Dictated on workstation # [id number]
[2017-04-24] MEDS: PANTOPRAZOLE 2 MG/ML LIQUID 200 ML (PROTONIX) PEG SCH ×3 (08:52)
[2017-04-24] MEDS: DULoxetine 20 MG (CYMBALTA) CAP PEG SCH (09:01)
[2017-04-24] MEDS: LACTOBACILLUS Acidoph/Bulgar 1 GM (LACTINEX) PACKET PEG SCH (09:01)
[2017-04-24] MEDS: LEVOTHYROXINE 100 MCG (LEVOTHROID) TAB PEG SCH (09:01)
[2017-04-24] MEDS: LEVOTHYROXINE 50 MCG (LEVOTHROID) TAB PEG SCH (09:01)
[2017-04-24] MEDS: NYSTATIN CREAM (MYCOSTATIN) 30 GM TUBE TP SCH (09:02)
[2017-04-24] MEDS: NEO/POLY/BAC (NEOSPORIN) OINT 15 GM TUBE TP SCH (09:02)
[2017-04-24] MEDS: ENOXAPARIN 40 MG/0.4 ML (LOVENOX) SYR SC SCH (09:09)
[2017-04-24] MEDS: HYDROcodone/APAP 7.5 MG/325 MG (LORTAB, LORCET PLUS) TABLET PO PRN (13:06)
== END 2017-04-24 13:30 | DRG 871 ==
LOC: ICU 08:25
PROVIDERS: ADMIT Family Medicine; ATTEND Family Medicine
DX: A41.9 Sepsis, unspecified organism (principal); J18.9 Pneumonia, unspecified organism; I69.354 Hemiplegia and hemiparesis following cerebral infarction affecting left non-dominant side; I69.320 Aphasia following cerebral infarction; E87.2 Acidosis; B96.4 Proteus (mirabilis) (morganii) as the cause of diseases classified elsewhere; J39.8 Other specified diseases of upper respiratory tract; I10 Essential (primary) hypertension; I25.10 Atherosclerotic heart disease of native coronary artery without angina pectoris; I73.9 Peripheral vascular disease, unspecified; F32.9 Major depressive disorder, single episode, unspecified; F41.9 Anxiety disorder, unspecified; E03.9 Hypothyroidism, unspecified; Z93.0 Tracheostomy status; J98.09 Other diseases of bronchus, not elsewhere classified; E87.6 Hypokalemia; E83.42 Hypomagnesemia
CPT/HCPCS: 36415; 36569; 71010; 71020; 76937; 80048; 80053; 80202; 82805; 82962; 83605; 83735; 83880; 84100; 85007; 85025; 85027; 87040; 87070; 87077; 87081; 87186; 87205; 94640; 94799

== ENCOUNTER 2019-05-19 15:35 | Outpatient (CLI) | payer MEDICARE, MEDICAID ==
[~2019-05-19] VITALS: Wt 60.5 kg
[~2019-05-19 15:35] MED LIST changes: +AMLO10TA7 PEG; +DULO20CA19 PEG; +ENOX40DI8 SC; +HYDR-34 PEG; +LACT1CAP8 PEG; +LEVO200T6 PEG; +LEVO50TA6 PEG; +NEOM28.33 TP; +NYST15CR TP; +OMEPRAZOLE SUSP PEG; +PIPE4.5V IV; +PRED10TA22 PO; +PROT946L PEG; +[UNRECOGNIZED DRUG - CODE] TP; +[UNRECOGNIZED DRUG - OTHER] TOP
[2019-05-19] MEDS ORDERED: HYDR-3816 PEG (16:15)
[2019-05-19] MEDS ORDERED: HYOS0.1283 SL (16:15)
[2019-05-19] MEDS ORDERED: ONDN4T PEG (16:15)
[2019-05-19] MEDS ORDERED: DEXT1DRO7 OP (16:15)
[2019-05-19] MEDS ORDERED: ACET325T49 PEG (16:15)
[2019-05-19] MEDS ORDERED: DULO30CA49 PEG (16:15)
[2019-05-19] MEDS ORDERED: LEVO150T6 PEG (16:15)
[2019-05-19] MEDS ORDERED: OMEP20CA13 PEG (16:15)
[2019-05-19] MEDS ORDERED: DIPH25CA79 PEG (16:15)
[2019-05-19] MEDS ORDERED: LORA10CA PEG (16:15)
[2019-05-19] MEDS ORDERED: ENOX40DI13 SQ (16:15)
== END 2019-05-20 10:57 | disposition home or self-care (01) ==
LOC: PREOP 15:35
PROVIDERS: ATTEND Specialist
DX: Z01.818 Encounter for other preprocedural examination (principal)

== ENCOUNTER 2019-05-25 11:16 | Day surgery (SDC) | payer MEDICARE, MEDICAID ==
[~2019-05-25] VITALS: Ht 152.4 cm; Wt 60.5 kg
[2019-05-25] VITALS (12 sets, daily range): BP systolic 81–182; BP diastolic 42–74
[~2019-05-25 11:16] MED LIST changes: +ACET325T49 PEG; +DEXT1DRO7 OP; +DIPH25CA79 PEG; +DULO30CA49 PEG; +ENOX40DI13 SQ; +HYDR-3816 PEG; +HYOS0.1283 SL; +LEVO150T6 PEG; +LORA10CA PEG; +OMEP20CA13 PEG; +ONDN4T PEG
[2019-05-25] MEDS ORDERED: ceFAZolin 2 GM IV Premixed 50 ML IV ONE (11:45)
[2019-05-25] MEDS: LACTATED RINGERS 1,000 ML IV PRN ×2 (11:56→14:05)
[2019-05-25] MEDS ORDERED: fentaNYL INJECTION 100 MCG/2 ML AMP ONE (12:48)
[2019-05-25] MEDS ORDERED: LIDOCAINE/EPI 2% 1:100,00 (XYLOCAINE) 20 ML VIAL ONE (12:48)
[2019-05-25] MEDS ORDERED: MIDAZOLAM 2 MG/2 ML (VERSED) VIAL ONE (12:49)
[2019-05-25] MEDS ORDERED: ROPIVACAINE 5MG/ML 30ML VIAL ONE (12:49)
--- NOTE | 2019-05-25 13:02 | Progress Note-Pre Operative ---
Pre-Operative Progress Note H&P Reviewed The H&P was reviewed, patient examined and no changes noted. Date Seen by Provider: May 25, 2019 Time Seen by Provider: 12:30 Date H&P Reviewed: May 25, 2019 Time H&P Reviewed: 12:30 Pre-Operative Diagnosis: pt sp CVA with muliple carious teeth. YESSENIA DALE DDS May 25, 2019 1:02 pm
[2019-05-25] MEDS ORDERED: HYDROcodone/APAP 7.5MG-325 MG/15 ML (LORTAB) UDC PO PRN (13:15)
[2019-05-25] MEDS ORDERED: DEXAMETHASONE 4 MG/ML SDV (DECADRON) IV SCH (13:15)
[2019-05-25] MEDS ORDERED: DEXAMETHASONE 10 MG/ML (DECADRON) 1 ML VIAL ONE (13:45)
[2019-05-25] MEDS ORDERED: LIDOCAINE JELLY 2% 6 ML SYRINGE ONE (13:45)
[2019-05-25] MEDS ORDERED: SEVOFLURANE (ULTANE) 15 ML INHAL SOLN ONE ×3 (13:45→14:26)
[2019-05-25] MEDS ORDERED: ONDANSETRON 4 MG/2 ML (SDV) Z0FRAN ONE (13:45)
[2019-05-25] MEDS ORDERED: proPOfol 200 MG/20 ML (DIPRIVAN) VIAL IV ONE (13:45)
[2019-05-25] MEDS ORDERED: LIDOCAINE PF 2% 5 ML (XYLOCAINE) VIAL ONE (13:45)
[2019-05-25] MEDS ORDERED: PHENYLEPHRINE 100 MCG/ML 10 ML (ANESTHESIA) SYR ONE (14:33)
[2019-05-25] MEDS ORDERED: MEPERIDINE (DEMEROL) INJ 50 MG/ML IVP ONE (14:45)
[2019-05-25] MEDS ORDERED: fentaNYL INJECTION 100 MCG/2 ML AMP IVP ONE (14:45)
--- NOTE | 2019-05-25 16:25 | NUR ---
CHECKED PH OF PEG TUBE CONTENTS PRIOR TO ADMINISTERING PAIN MEDICATION VIA PEG TUBE, PH LEVEL 4. NO RESIDUAL.
[2019-05-25] MEDS: HYDROcodone/APAP 7.5MG-325 MG/15 ML (LORTAB) UDC PO PRN ×2 (16:27→18:25)
--- NOTE | 2019-05-25 17:15 | NUR ---
WALTER SOLIS HERE TO ASSESS PATIENT'S TRACH. WALTER SOLIS TO REMOVE THE CUFFED TRACH AND INSERT PATIENT'S ORIGINAL TRACH THAT HAD BEEN CLEANED IN OR. PATIENT TOLERATED THE TRACH SWITCH POORLY. THERE WAS MODERATE AMOUNT OF RED DRAINAGE NOTED DURING THE SWITCH, PATIENT COUGHING. WALTER SOLIS SUCTIONED PATIENT MULTIPLE TIMES WHILE AT BEDSIDE. WALTER SOLIS RECOMMENDED THE PATIENT NOT BE TRANSFERRED AT THIS TIME AND TO BE MONITORED FOR A WHILE LONGER. THIS RN CALLED DR. DALE AND UPDATED HIM ON PATIENT STATUS, RECEIVED ORDER TO BE ADMITTED TO 4TH FLOOR.
--- NOTE | 2019-05-25 17:45 | NUR ---
TRANSFERRED PATIENT TO 4TH FLOOR, GAVE REPORT TO SCOTTIE PINEDA.
--- NOTE | 2019-05-25 17:45 | NUR ---
FLORENCIO MCINTYRE Christian admitted to room 432-1, with an admitting diagnosis of STATUS POST FULL MOUTH EXTRACTION, [place] from [facility] [facility], accompanied by STAFF AND DPOA.FLORENCIO MCINTYRE introduced to surroundings, call light, bed controls, phone, TV, temperature control, lights, meal times, smoking policy, visitor policy, side rail policy, bathrooms and showers. Patient Rights given to patient in the handbook. FLORENCIO MCINTYRE verbalizes understanding that [facility] is not responsible for the loss or damage to any personal effects or valuables that are kept in the patients posession during their hospitalization. FLORENCIO MCINTYRE verbalizes understanding of Interdisciplinary Patient Education. Patient and/or family were informed about the Rapid Response Team and its purpose.
--- NOTE | 2019-05-25 18:13 | NUR ---
Pt received hydrocodone at 1627. Pt still complaining of pain at this time. Dr. Redd notified. This RN instructed to give another hydrocodone at this time. Dr. Redd also notified of pt BP 182/72. No new orders received.
--- NOTE | 2019-05-25 18:34 | Anesthesia-General Post-Op ---
General Patient Condition Mental Status/LOC: Same as Preop Cardiovascular: Satisfactory Nausea/Vomiting: Absent Respiratory: Satisfactory Pain: Controlled Complications: Absent Post Op Complications Complications None Follow Up Care/Instructions Patient Instructions None needed. Anesthesia/Patient Condition Patient Condition Patient is doing well, no complaints, stable vital signs, no apparent adverse anesthesia problems. No complications reported per nursing. [place] [facility] [place]: Yes IRMA JHAVERI CRNA May 25, 2019 18:34
[2019-05-25] MEDS: LACTATED RINGERS 1,000 ML IV SCH (18:55)
[2019-05-25] MEDS ORDERED: WATER (STERILE) FOR INJECTION 10 ML ONE (20:55)
[2019-05-25] MEDS ORDERED: ceFAZolin INJECTION 1,000 MG ONE (20:55)
[2019-05-25] MEDS: ONDANSETRON 4 MG/2 ML (SDV) Z0FRAN IVP PRN (21:03)
[2019-05-25] MEDS: DEXAMETHASONE 4 MG/ML SDV (DECADRON) IV SCH (21:05)
[2019-05-26] MEDS: HYDROcodone/APAP 7.5MG-325 MG/15 ML (LORTAB) UDC PO PRN ×3 (00:15→12:28)
[2019-05-26 00:35] VITALS: BP 138/69
[2019-05-26] MEDS: ceFAZolin INJECTION 1,000 MG in WATER (STERILE) FOR INJECTION 10 ML IV SCH ×2 (00:39→05:25)
[2019-05-26] MEDS: ONDANSETRON 4 MG/2 ML (SDV) Z0FRAN IVP PRN (01:05)
[2019-05-26] MEDS: DEXAMETHASONE 4 MG/ML SDV (DECADRON) IV SCH ×2 (01:05→12:27)
[2019-05-26 04:48] VITALS: BP 145/67
[2019-05-26] MEDS ORDERED: ceFAZolin INJECTION 1,000 MG ONE (05:21)
[2019-05-26] MEDS: LACTATED RINGERS 1,000 ML IV SCH (05:36)
--- NOTE | 2019-05-26 13:38 | NUR ---
CALLED REPORT TO [facility] . [facility] BE PICKED UP AFTER [facility]AN TAKES OTHERS TO APPOINTMENTS
--- NOTE | 2019-05-26 15:50 | NUR ---
CM/SS RN stated that the patient is from [facility]. Faxed discharge information to the facility, RN had given report, and Facility was picking up around 1530.
--- OUTSIDE RECORDS SUMMARY | 2019-06-07 03:51 | XMS REPORT ---
Author Author PADMINI GODWIN POS [facility] SP Address [address] [place] [address] SP Care Team Providers Care Outsole Scheduler Name Role Phone POS PADMINI GODWIN Unavailable SP PROBLEMS Type Condition ICD9-CM Code [id number] Code Onset Dates Condition S tatus SNOMED POS Problem Abdominal pain, generalized 789.07 Ac tive 372180059 POS Problem Need for prophylactic vaccination and inoculation, Influen za V04.81 SP [id number] SP Problem Undiagnosed cardiac murmurs 785.2 Ac tive 198390402 SP Problem Other dyspnea and respiratory abnormalities 786.09 Active 320639241 SP Problem Edema 782.3 Active 732762832 SP Problem Loss of weight 783.21 Active 69064 5001 SP Problem Alcoholic cirrhosis of liver 571.2 A ctive 429728589 SP Problem Counseling on substance use and abuse V65.42 Active 810623376 SP Problem Unspecified sleep disturbance 780.50 Active 51856065 SP Problem Chronic airway obstruction, not elsewhere classified 496 Active SP Problem Obstructive chronic bronchitis, with (acute) exacerbation 491.21 SP 975624859 SP Problem Unspecified gastritis and ga stroduodenitis without mention of hemorrhage SP 535.50 Active 081159054 SP Problem Other and unspecified hyperlipidemia 272.4 Active 87479794 SP Problem Unspecified dental caries 521.00 Acti ve 64493342 SP Problem Unspecified follow-up examination V67.9 Active 536618641 SP Problem Herpes simplex without mention of complication 054.9 Active SP Problem Incisional hernia without mention of obstruction or gangre ne 553.21 SP 294225871 SP Problem Personal history of noncompl iance with medical treatment, presenting SP to [facility] V15.81 Active 903364864 SP Problem STATE HEP A (ADULT) DX V05.3 Active 974163655 SP Problem Acute bronchitis 466.0 Active 105 03823 SP Problem Hypertensive chronic kidney disease, unspecified, with chronic kidney SP stage I through stage IV, or unspecified 403.90 Active 61359655 SP Problem Other and unspecified alcohol dependence , unspecified drunkenness 303.90 SP Active 916067137 SP Problem Anxiety state, unspecified 300.00 Act rola [id number] SP ALLERGIES No Information ENCOUNTERS Encounter Location Date Diagnosis [facility] [address] [id number] [id number] 18 2014 Undiagnosed cardiac murmurs 785.2 ; Hype rtension 401.9 and Dizziness of SP cause 780.4 [facility] [address] [facility] [id number] [address] [place] [phone] SP 14 Nov, 2014 SP [facility] [address] [facility] [id number] [address] [place] [address] SP Nov, SP [facility] [address] [facility] [id number] [address] [place] [address] SP Oct, SP [facility] [address] [facility] [id number] [address] [place] [phone] SP Oct, SP [facility] [address] [facility] [id number] [address] [place] [phone] SP Jul, SP [facility] [address] [facility] [id number] [address] [place] [address] SP Jul, SP [facility] [address] [facility] [id number] [address] [place] [address] SP Jun, SP [facility] [address] [facility] [id number] [address] [place] [phone] SP Jun, SP [facility] [address] [facility] [id number] [address] [place] [phone] SP May, SP [facility] [address] [facility] [id number] [address] [place] [phone] SP May, SP [facility] [address] [facility] [id number] [address] [place] [phone] SP 16 May, 2014 SP [facility] [address] [id number] [address] [place] [address], [place] [address] SP 16 May, 2014 SP [facility] [address] [id number] [address] [place] [address], [place] [address] SP 14 May, 2014 SP [facility] [address] [id number] [address] [place] [address], [place] [address] SP 14 May, 2014 SP [facility] [address] [id number] [address] [place] [address], [place] [address] SP May, SP [facility] [address] [id number] [address] [place] [address], [place] [address] SP May, SP [facility] [address] [id number] [address] [place] [address], [place] [address] SP May, SP [facility] [address] [id number] [address] [place] [address], [place] [address] SP May, SP [facility] [address] [id number] [address] [place] [address], [place] [address] SP Jan, SP [facility] [address] [id number] [address] [place] [address], [place] [address] SP Jan, SP [facility] [address] [id number] [address] [place] [address], [place] [address] SP Jan, SP [facility] [address] [id number] [address] [place] [address], [place] [address] SP Jan, SP [facility] [address] [id number] [address] [place] [address], [place] [address] SP December, SP [facility] [address] [id number] [address] [place] [address], [place] [address] SP December, SP [facility] [address] [id number] [address] [place] [address], [place] [address] SP December, SP [facility] [address] [id number] [address] [place] [address], [place] [address] SP December, SP [facility] [address] [id number] [address] [place] [address], [place] [address] SP December, SP [facility] [address] [id number] [address] [place] [address], [place] [address] SP Nov, SP [facility] [address] [id number] [address] [place] [address], [place] [address] SP Nov, SP [facility] [address] [id number] [address] [place] [address], [place] [address] SP Nov, SP [facility] [address] [id number] [address] [place] [address], [place] [address] SP Nov, SP [facility] [address] [id number] [place] [id number] Nov, SP SP [facility] [address] [id number] [address] [place] [address], [place] [address] SP Nov, SP [facility] [address] [id number] [address] [place] [address], [place] [address] SP Oct, SP [facility] [address] [id number] [address] [place] [address], [place] [address] SP Oct, SP [facility] [address] [id number] [address] [place] [address], [place] [address] SP Oct, SP [facility] [address] [id number] [address] [place] [address], [place] [address] SP Oct, SP [facility] [address] [id number] [address] [place] [address], [place] [address] SP Oct, SP [facility] [address] [id number] [address] [place] [address], [place] [address] SP Oct, SP [facility] [address] [id number] [address] [place] [address], [place] [address] SP Oct, SP [facility] [address] [id number] [address] [place] [address], [place] [address] SP Oct, SP [facility] [address] [id number] [address] [place] [address], [place] [address] SP Oct, SP [facility] [address] [id number] [address] [place] [address], [place] [address] SP Oct, SP [facility] [address] [id number] [address] [place] [address], [place] [address] SP Sep, SP [facility] [address] [id number] [address] [place] [address], [place] [address] SP Sep, SP [facility] [address] [id number] [address] [place] [address], [place] [address] SP Sep, SP [facility] [address] [id number] [address] [place] [address], [place] [address] SP Sep, SP [facility] [address] [id number] [address] [place] [address], [place] [address] SP Sep, SP [facility] [address] [id number] [address] [place] [address], [place] [address] SP Sep, SP [facility] [address] [id number] [address] [place] [address], [place] [address] SP Sep, SP [facility] [address] [id number] [address] [place] [address], [place] [address] SP Sep, SP [facility] [address] [id number] [address] [place] [address], [place] [address] SP Aug, SP [facility] [address] [id number] [address] [place] [address], [place] [address] SP Aug, SP [facility] [address] [id number] [address] [place] [address], [place] [address] SP Jul, SP [facility] [address] [id number] [address] [place] [address], [place] [address] SP Jul, SP [facility] [address] [id number] [address] [place] [address], [place] [address] SP Jul, SP [facility] [address] [id number] [address] [place] [address], [place] [address] SP Jul, SP [facility] [address] [id number] [address] [place] [address], [place] [address] SP Jul, SP [facility] [address] [id number] [address] [place] [address], [place] [address] SP Jul, SP [facility] [address] [id number] [address] [place] [address], [place] [address] SP Jul, SP [facility] [address] [id number] [address] [place] [address], [place] [address] SP Jul, SP [facility] [address] [id number] [address] [place] [address], [place] [address] SP Jul, SP [facility] [address] [id number] [address] [place] [address], [place] [address] SP Jul, SP [facility] [address] [id number] [address] [place] [address], [place] [address] SP Jul, SP [facility] [address] [id number] [address] [place] [address], [place] [address] SP Jul, SP [facility] [address] [id number] [address] [place] [id number] SP Jun, SP [facility] [address] [id number] [address] [place] [address], [place] [address] SP Jun, SP [facility] [address] [id number] [address] [place] [address], [place] [address] SP May, SP [facility] [address] [id number] [address] [place] [address], [place] [address] SP May, SP [facility] [address] [id number] [address] [place] [address], [place] [address] SP May, SP [facility] [address] [id number] [address] [place] [address], [place] [address] SP May, SP [facility] [address] [id number] [address] [place] [address], [place] [address] SP May, SP [facility] [address] [id number] [address] [place] [address], [place] [address] SP May, SP [facility] [address] [id number] [address] [place] [address], [place] [address] SP May, SP [facility] [address] [id number] [address] [place] [address], [place] [address] SP May, SP [facility] [address] [id number] [address] [place] [address], [place] [address] SP May, SP [facility] [address] [id number] [address] [place] [id number] SP May, SP [facility] [address] [id number] [address] [place] [address], [place] [address] SP Apr, SP [facility] [address] [id number] [address] [place] [address] SP Apr, SP [facility] [address] [id number] [address] [place] [address] SP Apr, SP [facility] [address] [id number] [address] [place] [id number] SP Jan, SP [facility] [address] [id number] [address] [place] [address], [place] [address] SP December, SP [facility] [address] [id number] [address] [place] [address], [place] [address] SP December, SP [facility] [address] [id number] [address] [place] [id number] SP December, SP [facility] [address] [id number] [address] [place] [address], [place] [address] SP 30 Nov, 2012 SP [facility] [address] [id number] [address] [place] [address], [place] [address] SP Oct, SP [facility] [address] [id number] [place] [id number] Oct, SP SP [facility] [address] [id number] [address] [place] [address], [place] [address] SP Oct, SP [facility] [address] [id number] [place] [id number] Sep, SP SP [facility] [address] [id number] [address] [place] [address], [place] [address] SP Sep, SP [facility] [address] [id number] [address] [place] [address], [place] [address] SP Sep, SP [facility] [address] [id number] [address] [place] [address] SP Aug, SP [facility] [address] [id number] [address] [place] [address], [place] [address] SP Aug, SP [facility] [address] [id number] [address] [place] [address], [place] [address] SP Jul, SP [facility] [address] [id number] [address] [place] [address] SP Jul, SP [facility] [address] [id number] [address] [place] [address] SP Jun, SP [facility] [address] [id number] [address] [place] [address], [place] [address] SP Jun, SP [facility] [address] [id number] [address] [place] [address], [place] [address] SP May, SP [facility] [address] [id number] [address] [place] [address] SP May, SP [facility] [address] [id number] [address] [place] [address] SP May, SP [facility] [address] [id number] [address] [place] [address] SP May, SP [facility] [address] [facility] [id number] [address] [place] [address] SP May, SP [facility] [address] [facility] [id number] [address] [place] [address] SP May, SP [facility] [address] [facility] [id number] [address] [place] [address] SP May, SP [facility] [address] [id number] [place] [id number] Mar, SP [facility] [address] [facility] [id number] [address] [place] [address] SP December, SP [facility] [address] [facility] [id number] [address] [place] [address] SP December, SP IMMUNIZATIONS No Known Immunizations SOCIAL HISTORY Never Assessed REASON FOR VISIT PLAN OF CARE VITAL SIGNS MEDICATIONS No Known Medications RESULTS No Results PROCEDURES Procedure Date Ordered Result Body Site POS TTE W/DOPPLER, COMPLETE May 16, 2014 SP ECHO EXAM OF ABDOMEN May 16, 2014 SP INSTRUCTIONS MEDICATIONS ADMINISTERED No Known Medications MEDICAL (GENERAL) HISTORY Type Description Date POS Medical History cardiac murmur, abnormal EKG's SP Medical History hypertension SP Medical History gastrointestinal disorder dx with liver cirrhosis in 1997 SP Medical History ventral hernia SP Medical History renal disease CKD- Stage 3 SP Medical History hyperlipidemia SP Medical History hypothyroidism SP Surgical History section x 2 SP
--- OUTSIDE RECORDS SUMMARY | 2019-06-07 03:52 | XMS REPORT ---
Author Author PADMINI GODWIN POS Organization [facility] SP Address [address] [place] [address] SP Care Team Providers Care Airborne Electronics Analyst Name Role Phone POS PADMINI GODWIN Unavailable SP PROBLEMS Type Condition ICD9-CM Code [id number] Code Onset Dates Condition S tatus SNOMED POS Problem Abdominal pain, generalized 789.07 Ac tive [id number] POS Problem Need for prophylactic vaccination and inoculation, Influen za V04.81 SP [id number] SP Problem Undiagnosed cardiac murmurs 785.2 Ac tive [id number] SP Problem Other dyspnea and respiratory abnormalities 786.09 Active 603552768 SP Problem Edema 782.3 Active 191839401 SP Problem Loss of weight 783.21 Active 61549 5001 SP Problem Alcoholic cirrhosis of liver 571.2 A ctive 557586582 SP Problem Counseling on substance use and abuse V65.42 Active 756948202 SP Problem Unspecified sleep disturbance 780.50 Active 08862100 SP Problem Chronic airway obstruction, not elsewhere classified 496 Active SP Problem Obstructive chronic bronchitis, with (acute) exacerbation 491.21 SP [id number] SP Problem Unspecified gastritis and ga stroduodenitis without mention of hemorrhage SP 535.50 Active 804414232 SP Problem Other and unspecified hyperlipidemia 272.4 Active 05872924 SP Problem Unspecified dental caries 521.00 Acti ve 01992865 SP Problem Unspecified follow-up examination V67.9 Active 416809821 SP Problem Herpes simplex without mention of complication 054.9 Active SP Problem Incisional hernia without mention of obstruction or gangre ne 553.21 SP 129657976 SP Problem Personal history of noncompl iance with medical treatment, presenting SP to [facility] V15.81 Active 337201113 SP Problem STATE HEP A (ADULT) DX V05.3 Active 845806114 SP Problem Acute bronchitis 466.0 Active 105 24910 SP Problem Hypertensive chronic kidney disease, unspecified, with chronic kidney SP stage I through stage IV, or unspecified 403.90 Active 39813138 SP Problem Other and unspecified alcohol dependence , unspecified drunkenness 303.90 SP Active 896316447 SP Problem Anxiety state, unspecified 300.00 Act rola [id number] SP ALLERGIES No Information ENCOUNTERS Encounter Location Date Diagnosis [facility] [id number] [id number] 18 2014 Undiagnosed cardiac murmurs 785.2 ; Hype rtension 401.9 and Dizziness of SP cause 780.4 [facility] [place] [address] [facility] [id number] [address] [place] [address] SP 14 Nov, 2014 SP [facility] [place] [address] [facility] [id number] [address] [place] [address] SP Nov, SP [facility] [place] [address] [facility] [id number] [address] [place] [address] SP Oct, SP [facility] [place] [address] [facility] [id number] [address] [place] [address] SP Oct, SP [facility] [place] [address] [facility] [id number] [address] [place] [address] SP Jul, SP [facility] [place] [address] [facility] [id number] [address] [place] [address] SP Jul, SP [facility] [place] [address] [facility] [id number] [address] [place] [address] SP Jun, SP [facility] [place] [address] [facility] [id number] [address] [place] [address] SP Jun, SP [facility] [place] [address] [facility] [id number] [address] [place] [address] SP May, SP [facility] [place] [address] [facility] [id number] [address] [place] [address] SP May, SP [facility] [place] [address] [facility] [id number] [address] [place] [address] SP 16 May, 2014 SP [facility] [address] [id number] [address] [place] [address], [place] [address] SP 16 May, 2014 SP [facility] [address] [id number] [address] [place] [address], [place] [address] SP 14 May, 2014 SP [facility] [address] [id number] [address] [place] [address], [place] [address] SP 14 May, 2014 SP [facility] [address] [id number] [address] [place] [address], [place] [address] SP May, SP [facility] [address] [id number] [address] [place] [address], [place] [address] SP May, SP [facility] [address] [id number] [address] [place] [address], [place] [address] SP May, SP [facility] [address] [id number] [address] [place] [address], [place] [address] SP May, SP [facility] [address] [id number] [address] [place] [address], [place] [address] SP Jan, SP [facility] [address] [id number] [address] [place] [address], [place] [address] SP Jan, SP [facility] [address] [id number] [address] [place] [address], [place] [address] SP Jan, SP [facility] [address] [id number] [address] [place] [address], [place] [address] SP Jan, SP [facility] [address] [id number] [address] [place] [address], [place] [address] SP December, SP [facility] [address] [id number] [address] [place] [address], [place] [address] SP December, SP [facility] [address] [id number] [address] [place] [address], [place] [address] SP December, SP [facility] [address] [id number] [address] [place] [address], [place] [address] SP December, SP [facility] [address] [id number] [address] [place] [address], [place] [address] SP December, SP [facility] [address] [id number] [address] [place] [address], [place] [address] SP Nov, SP [facility] [address] [id number] [address] [place] [address], [place] [address] SP Nov, SP [facility] [address] [id number] [address] [place] [address], [place] [address] SP Nov, SP [facility] [address] [id number] [address] [place] [address], [place] [address] SP Nov, SP [facility] [address] [id number] [place] [id number] Nov, SP SP [facility] [address] [id number] [address] [place] [address], [place] [address] SP Nov, SP [facility] [address] [id number] [address] [place] [address], [place] [address] SP Oct, SP [facility] [address] [id number] [address] [place] [address], [place] [address] SP Oct, SP [facility] [address] [id number] [address] [place] [address], [place] [address] SP Oct, SP [facility] [address] [id number] [address] [place] [address], [place] [address] SP Oct, SP [facility] [address] [id number] [address] [place] [address], [place] [address] SP Oct, SP [facility] [address] [id number] [address] [place] [address], [place] [address] SP Oct, SP [facility] [address] [id number] [address] [place] [address], [place] [address] SP Oct, SP [facility] [address] [id number] [address] [place] [address], [place] [address] SP Oct, SP [facility] [address] [id number] [address] [place] [address], [place] [address] SP Oct, SP [facility] [address] [id number] [address] [place] [address], [place] [address] SP Oct, SP [facility] [address] [id number] [address] [place] [address], [place] [address] SP Sep, SP [facility] [address] [id number] [address] [place] [address], [place] [address] SP Sep, SP [facility] [address] [id number] [address] [place] [address], [place] [address] SP Sep, SP [facility] [address] [id number] [address] [place] [address], [place] [address] SP Sep, SP [facility] [address] [id number] [address] [place] [address], [place] [address] SP Sep, SP [facility] [address] [id number] [address] [place] [address], [place] [address] SP Sep, SP [facility] [address] [id number] [address] [place] [address], [place] [address] SP Sep, SP [facility] [address] [id number] [address] [place] [address], [place] [address] SP Sep, SP [facility] [address] [id number] [address] [place] [address], [place] [address] SP Aug, SP [facility] [address] [id number] [address] [place] [address], [place] [address] SP Aug, SP [facility] [address] [id number] [address] [place] [address], [place] [address] SP Jul, SP [facility] [address] [id number] [address] [place] [address], [place] [address] SP Jul, SP [facility] [address] [id number] [address] [place] [address], [place] [address] SP Jul, SP [facility] [address] [id number] [address] [place] [address], [place] [address] SP Jul, SP [facility] [address] [id number] [address] [place] [address], [place] [address] SP Jul, SP [facility] [address] [id number] [address] [place] [address], [place] [address] SP Jul, SP [facility] [address] [id number] [address] [place] [address], [place] [address] SP Jul, SP [facility] [address] [id number] [address] [place] [address], [place] [address] SP Jul, SP [facility] [address] [id number] [address] [place] [address], [place] [address] SP Jul, SP [facility] [address] [id number] [address] [place] [address], [place] [address] SP Jul, SP [facility] [address] [id number] [address] [place] [address], [place] [address] SP Jul, SP [facility] [address] [id number] [address] [place] [address], [place] [address] SP Jul, SP [facility] [address] [id number] [address] [place] [address] SP Jun, SP [facility] [address] [id number] [address] [place] [address], [place] [address] SP Jun, SP [facility] [address] [id number] [address] [place] [address], [place] [address] SP May, SP [facility] [address] [id number] [address] [place] [address], [place] [address] SP May, SP [facility] [address] [id number] [address] [place] [address], [place] [address] SP May, SP [facility] [address] [id number] [address] [place] [address], [place] [address] SP May, SP [facility] [address] [id number] [address] [place] [address], [place] [address] SP May, SP [facility] [address] [id number] [address] [place] [address], [place] [address] SP May, SP [facility] [address] [id number] [address] [place] [address], [place] [address] SP May, SP [facility] [address] [id number] [address] [place] [address], [place] [address] SP May, SP [facility] [address] [id number] [address] [place] [address], [place] [address] SP May, SP [facility] [address] [id number] [address] [place] [address] SP May, SP [facility] [address] [id number] [address] [place] [address], [place] [address] SP Apr, SP [facility] [address] [id number] [address] [place] [address] SP Apr, SP [facility] [address] [id number] [address] [place] [address] SP Apr, SP [facility] [address] [id number] [address] [place] [address] SP Jan, SP [facility] [address] [id number] [address] [place] [address], [place] [address] SP December, SP [facility] [address] [id number] [address] [place] [address], [place] [address] SP December, SP [facility] [address] [id number] [address] [place] [address] SP December, SP [facility] [address] [id number] [address] [place] [address], [place] [address] SP 30 Nov, 2012 SP [facility] [address] [id number] [address] [place] [address], [place] [address] SP Oct, SP [facility] [address] [id number] [place] [id number] Oct, SP SP [facility] [address] [id number] [address] [place] [address], [place] [address] SP Oct, SP [facility] [address] [id number] [place] [id number] Sep, SP SP [facility] [address] [id number] [address] [place] [address], [place] [address] SP Sep, SP [facility] [address] [id number] [address] [place] [address], [place] [address] SP Sep, SP [facility] [address] [id number] [address] [place] [address] SP Aug, SP [facility] [address] [id number] [address] [place] [address], [place] [address] SP Aug, SP [facility] [address] [id number] [address] [place] [address], [place] [address] SP Jul, SP [facility] [address] [id number] [address] [place] [address] SP Jul, SP [facility] [address] [id number] [address] [place] [address] SP Jun, SP [facility] [address] [id number] [address] [place] [address], [place] [address] SP Jun, SP [facility] [address] [id number] [address] [place] [address], [place] [address] SP May, SP [facility] [address] [id number] [address] [place] [address] SP May, SP [facility] [place] [address] [id number] [address] [place] [address] SP May, SP [facility] [address] [facility] [id number] [address] [place] [address] SP May[facility] [address] [facility] [id number] [address] [place] [address] SP May, SP [facility] [address] [facility] [id number] [address] [place] [address] SP May, [facility] [address] [facility] [id number] [address] [place] [address] SP May, [facility] [address] [id number] [place] [id number] Mar, SP [facility] [address] [facility] [id number] [address] [place] [address] SP December, [facility] [address] [facility] [id number] [address] [place] [address] SP December, SP IMMUNIZATIONS No Known Immunizations SOCIAL HISTORY Never Assessed REASON FOR VISIT PLAN OF CARE VITAL SIGNS MEDICATIONS No Known Medications RESULTS No Results PROCEDURES No Known procedures INSTRUCTIONS MEDICATIONS ADMINISTERED No Known Medications MEDICAL [...]
--- OUTSIDE RECORDS SUMMARY | 2019-06-07 03:52 | XMS REPORT ---
Author Author PADMINI GODWIN POS Organization [facility] SP Address [address] [place] [address] SP Care Team Providers Care Marketing Data Specialist Name Role Phone POS PADMINI GODWIN Unavailable SP PROBLEMS Type Condition ICD9-CM Code TDV29-DQ Code Onset Dates Condition S tatus SNOMED POS Problem Abdominal pain, generalized 789.07 Ac tive [id number] POS Problem Need for prophylactic vaccination and inoculation, Influen za V04.81 SP [id number] SP Problem Undiagnosed cardiac murmurs 785.2 Ac tive 436009130 SP Problem Other dyspnea and respiratory abnormalities 786.09 Active 638604271 SP Problem Edema 782.3 Active 856272635 SP Problem Loss of weight 783.21 Active 18680 5001 SP Problem Alcoholic cirrhosis of liver 571.2 A ctive 194701674 SP Problem Counseling on substance use and abuse V65.42 Active 343435089 SP Problem Unspecified sleep disturbance 780.50 Active 86995744 SP Problem Chronic airway obstruction, not elsewhere classified 496 Active SP Problem Obstructive chronic bronchitis, with (acute) exacerbation 491.21 SP 603635350 SP Problem Unspecified gastritis and ga stroduodenitis without mention of hemorrhage SP 535.50 Active 168071849 SP Problem Other and unspecified hyperlipidemia 272.4 Active 05848638 SP Problem Unspecified dental caries 521.00 Acti ve 42874736 SP Problem Unspecified follow-up examination V67.9 Active 380494368 SP Problem Herpes simplex without mention of complication 054.9 Active SP Problem Incisional hernia without mention of obstruction or gangre ne 553.21 SP 825310854 SP Problem Personal history of noncompl iance with medical treatment, presenting SP to [facility] V15.81 Active 427038342 SP Problem STATE HEP A (ADULT) DX V05.3 Active 320789737 SP Problem Acute bronchitis 466.0 Active 105 00310 SP Problem Hypertensive chronic kidney disease, unspecified, with chronic kidney SP stage I through stage IV, or unspecified 403.90 Active 26627304 SP Problem Other and unspecified alcohol dependence , unspecified drunkenness 303.90 SP Active 318681945 SP Problem Anxiety state, unspecified 300.00 Act rola [id number] SP ALLERGIES No Information ENCOUNTERS Encounter Location Date Diagnosis [facility] [id number] [id number] 18 2014 Undiagnosed cardiac murmurs 785.2 ; Hype rtension 401.9 and Dizziness of SP cause 780.4 [facility] [address] [facility] [id number] [address] [place] [address] SP 14 Nov, 2014 SP [facility] [address] [facility] [id number] [address] [place] [address] SP Nov, SP [facility] [address] [facility] [id number] [address] [place] [address] SP Oct, SP [facility] [address] [facility] [id number] [address] [place] [address] SP Oct, SP [facility] [address] [facility] [id number] [address] [place] [address] SP Jul, SP [facility] [address] [facility] [id number] [address] [place] [address] SP Jul, SP [facility] [address] [facility] [id number] [address] [place] [address] SP Jun, SP [facility] [address] [facility] [id number] [address] [place] [address] SP Jun, SP [facility] [address] [facility] [id number] [address] [place] [address] SP May, SP [facility] [address] [facility] [id number] [address] [place] [address] SP May, SP [facility] [address] [facility] [id number] [address] [place] [address] SP 16 May, 2014 SP [facility] [address] [id number] [address] [place] [address], [place] [address] SP 16 May, 2014 SP [facility] [address] [id number] [address] [place] [address], [place] [address] SP 14 May, 2014 SP [facility] [address] [id number] [address] [place] [address], [place] [address] SP 14 May, 2014 SP [facility] [address] [id number] [address] [place] [address], [place] [address] SP May, SP [facility] [address] [id number] [address] [place] [address], [place] [address] SP May, SP [facility] [address] [id number] [address] [place] [address], [place] [address] SP May, SP [facility] [address] [id number] [address] [place] [address], [place] [address] SP May, SP [facility] [address] [id number] [address] [place] [address], [place] [address] SP Jan, SP [facility] [address] [id number] [address] [place] [address], [place] [address] SP Jan, SP [facility] [address] [id number] [address] [place] [address], [place] [address] SP Jan, SP [facility] [address] [id number] [address] [place] [address], [place] [address] SP Jan, SP [facility] [address] [id number] [address] [place] [address], [place] [address] SP December, SP [facility] [address] [id number] [address] [place] [address], [place] [address] SP December, SP [facility] [address] [id number] [address] [place] [address], [place] [address] SP December, SP [facility] [address] [id number] [address] [place] [address], [place] [address] SP December, SP [facility] [address] [id number] [address] [place] [address], [place] [address] SP December, SP [facility] [address] [id number] [address] [place] [address], [place] [address] SP Nov, SP [facility] [address] [id number] [address] [place] [address], [place] [address] SP Nov, SP [facility] [address] [id number] [address] [place] [address], [place] [address] SP Nov, SP [facility] [address] [id number] [address] [place] [address], [place] [address] SP Nov, SP [facility] [address] [id number] [place] [id number] Nov, SP SP [facility] [address] [id number] [address] [place] [address], [place] [address] SP Nov, SP [facility] [address] [id number] [address] [place] [address], [place] [address] SP Oct, SP [facility] [address] [id number] [address] [place] [address], [place] [address] SP Oct, SP [facility] [address] [id number] [address] [place] [address], [place] [address] SP Oct, SP [facility] [address] [id number] [address] [place] [address], [place] [address] SP Oct, SP [facility] [address] [id number] [address] [place] [address], [place] [address] SP Oct, SP [facility] [address] [id number] [address] [place] [address], [place] [address] SP Oct, SP [facility] [address] [id number] [address] [place] [address], [place] [address] SP Oct, SP [facility] [address] [id number] [address] [place] [address], [place] [address] SP Oct, SP [facility] [address] [id number] [address] [place] [address], [place] [address] SP Oct, SP [facility] [address] [id number] [address] [place] [address], [place] [address] SP Oct, SP [facility] [address] [id number] [address] [place] [address], [place] [address] SP Sep, SP [facility] [address] [id number] [address] [place] [address], [place] [address] SP Sep, SP [facility] [address] [id number] [address] [place] [address], [place] [address] SP Sep, SP [facility] [address] [id number] [address] [place] [address], [place] [address] SP Sep, SP [facility] [address] [id number] [address] [place] [address], [place] [address] SP Sep, SP [facility] [address] [id number] [address] [place] [address], [place] [address] SP Sep, SP [facility] [address] [id number] [address] [place] [address], [place] [address] SP Sep, SP [facility] [address] [id number] [address] [place] [address], [place] [address] SP Sep, SP [facility] [address] [id number] [address] [place] [address], [place] [address] SP Aug, SP [facility] [address] [id number] [address] [place] [address], [place] [address] SP Aug, SP [facility] [address] [id number] [address] [place] [address], [place] [address] SP Jul, SP [facility] [address] [id number] [address] [place] [address], [place] [address] SP Jul, SP [facility] [address] [id number] [address] [place] [address], [place] [address] SP Jul, SP [facility] [address] [id number] [address] [place] [address], [place] [address] SP Jul, SP [facility] [address] [id number] [address] [place] [address], [place] [address] SP Jul, SP [facility] [address] [id number] [address] [place] [address], [place] [address] SP Jul, SP [facility] [address] [id number] [address] [place] [address], [place] [address] SP Jul, SP [facility] [address] [id number] [address] [place] [address], [place] [address] SP Jul, SP [facility] [address] [id number] [address] [place] [address], [place] [address] SP Jul, SP [facility] [address] [id number] [address] [place] [address], [place] [address] SP Jul, SP [facility] [address] [id number] [address] [place] [address], [place] [address] SP Jul, SP [facility] [address] [id number] [address] [place] [address], [place] [address] SP Jul, SP [facility] [address] [id number] [address] [place] [address] SP Jun, SP [facility] [address] [id number] [address] [place] [address], [place] [address] SP Jun, SP [facility] [address] [id number] [address] [place] [address], [place] [address] SP May, SP [facility] [address] [id number] [address] [place] [address], [place] [address] SP May, SP [facility] [address] [id number] [address] [place] [address], [place] [address] SP May, SP [facility] [address] [id number] [address] [place] [address], [place] [address] SP May, SP [facility] [address] [id number] [address] [place] [address], [place] [address] SP May, SP [facility] [address] [id number] [address] [place] [address], [place] [address] SP May, SP [facility] [address] [id number] [address] [place] [address], [place] [address] SP May, SP [facility] [address] [id number] [address] [place] [address], [place] [address] SP May, SP [facility] [address] [id number] [address] [place] [address], [place] [address] SP May, SP [facility] [address] [id number] [address] [place] [address] SP May, SP [facility] [address] [id number] [address] [place] [address], [place] [address] SP Apr, SP [facility] [address] [id number] [address] [place] [address] SP Apr, SP [facility] [address] [id number] [address] [place] [address] SP Apr, SP [facility] [address] [id number] [address] [place] [address] SP Jan, SP [facility] [address] [id number] [address] [place] [address], [place] [address] SP December, SP [facility] [address] [id number] [address] [place] [address], [place] [address] SP December, SP [facility] [address] [id number] [address] [place] [address] SP December, SP [facility] [address] [id number] [address] [place] [address], [place] [address] SP 30 Nov, 2012 SP [facility] [address] [id number] [address] [place] [address], [place] [address] SP Oct, SP [facility] [address] [id number] [place] [id number] Oct, SP SP [facility] [address] [id number] [address] [place] [address], [place] [address] SP Oct, SP [facility] [address] [id number] [place] [id number] Sep, SP SP [facility] [address] [id number] [address] [place] [address], [place] [address] SP Sep, SP [facility] [address] [id number] [address] [place] [address], [place] [address] SP Sep, SP [facility] [address] [id number] [address] [place] [address] SP Aug, SP [facility] [address] [id number] [address] [place] [address], [place] [address] SP Aug, SP [facility] [address] [id number] [address] [place] [address], [place] [address] SP Jul, SP [facility] [address] [id number] [address] [place] [address] SP Jul, SP [facility] [address] [id number] [address] [place] [address] SP Jun, SP [facility] [address] [id number] [address] [place] [address], [place] [address] SP Jun, SP [facility] [address] [id number] [address] [place] [address], [place] [address] SP May, SP [facility] [address] [id number] [address] [place] [address] SP May, SP [facility] [address] [id number] [address] [place] [address] SP May, SP [facility] [address] [facility] [id number] [address] [place] [address] SP May, [facility] [address] [facility] [id number] [address] [place] [address] SP May, SP [facility] [address] [facility] [id number] [address] [place] [address] SP May, [facility] [address] [facility] [id number] [address] [place] [address] SP May, [facility] [id number] [place] [id number] Mar, SP [facility] [address] [facility] [id number] [address] [place] [address] SP December, [facility] [address] [facility] [id number] [address] [place] [address] SP December, SP IMMUNIZATIONS No Known Immunizations [...]
--- OUTSIDE RECORDS SUMMARY | 2019-06-07 03:52 | XMS REPORT ---
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 Name Role Phone POS PADMINI GODWIN Unavailable SP PROBLEMS Type Condition ICD9-CM Code ZLS33-AE Code Onset Dates Condition S tatus SNOMED POS Problem Abdominal pain, generalized 789.07 Ac tive [id number] POS Problem Need for prophylactic vaccination and inoculation, Influen za V04.81 SP [id number] SP Problem Undiagnosed cardiac murmurs 785.2 Ac tive 318684264 SP Problem Other dyspnea and respiratory abnormalities 786.09 Active 577950453 SP Problem Edema 782.3 Active 980840332 SP Problem Loss of weight 783.21 Active 77541 5001 SP Problem Alcoholic cirrhosis of liver 571.2 A ctive 387347120 SP Problem Counseling on substance use and abuse V65.42 Active 125952932 SP Problem Unspecified sleep disturbance 780.50 Active 12361859 SP Problem Chronic airway obstruction, not elsewhere classified 496 Active SP Problem Obstructive chronic bronchitis, with (acute) exacerbation 491.21 SP 887692420 SP Problem Unspecified gastritis and ga stroduodenitis without mention of hemorrhage SP 535.50 Active 096717857 SP Problem Other and unspecified hyperlipidemia 272.4 Active 21297858 SP Problem Unspecified dental caries 521.00 Acti ve 59642521 SP Problem Unspecified follow-up examination V67.9 Active 046957556 SP Problem Herpes simplex without mention of complication 054.9 Active SP Problem Incisional hernia without mention of obstruction or gangre ne 553.21 SP 880649632 SP Problem Personal history of noncompl iance with medical treatment, presenting SP to [facility] V15.81 Active 746005827 SP Problem STATE HEP A (ADULT) DX V05.3 Active 224034190 SP Problem Acute bronchitis 466.0 Active 105 67546 SP Problem Hypertensive chronic kidney disease, unspecified, with chronic kidney SP stage I through stage IV, or unspecified 403.90 Active 14477160 SP Problem Other and unspecified alcohol dependence , unspecified drunkenness 303.90 SP Active 270657814 SP Problem Anxiety state, unspecified 300.00 Act rola [id number] SP ALLERGIES No Information ENCOUNTERS Encounter Location Date Diagnosis [facility] [address] [id number] [id number] 18 2014 Undiagnosed cardiac murmurs 785.2 ; Hype rtension 401.9 and Dizziness of SP cause 780.4 [facility] [address] [facility] [id number] [address] [place] [address] SP 14 Nov, 2014 SP [facility] [address] [facility] [id number] [address] [place] [address] SP Nov, SP [facility] [address] [facility] [id number] [address] [place] [address] SP Oct, SP [facility] [address] [facility] [id number] [address] [place] [address] SP Oct, SP [facility] [address] [facility] [id number] [address] [place] [address] SP Jul, SP [facility] [address] [facility] [id number] [address] [place] [address] SP Jul, SP [facility] [address] [facility] [id number] [address] [place] [address] SP Jun, SP [facility] [address] [facility] [id number] [address] [place] [address] SP Jun, SP [facility] [address] [facility] [id number] [address] [place] [address] SP May, SP [facility] [address] [facility] [id number] [address] [place] [address] SP May, SP [facility] [address] [facility] [id number] [address] [place] [address] SP 16 May, 2014 SP [facility] [address] [id number] [address] [place] [address], [place] [address] SP 16 May, 2014 SP [facility] [address] [id number] [address] [place] [address], [place] [address] SP 14 May, 2014 SP [facility] [address] [id number] [address] [place] [address], [place] [address] SP 14 May, 2014 SP [facility] [address] [id number] [address] [place] [address], [place] [address] SP May, SP [facility] [address] [id number] [address] [place] [address], [place] [address] SP May, SP [facility] [address] [id number] [address] [place] [address], [place] [address] SP May, SP [facility] [address] [id number] [address] [place] [address], [place] [address] SP May, SP [facility] [address] [id number] [address] [place] [address], [place] [address] SP Jan, SP [facility] [address] [id number] [address] [place] [address], [place] [address] SP Jan, SP [facility] [address] [id number] [address] [place] [address], [place] [address] SP Jan, SP [facility] [address] [id number] [address] [place] [address], [place] [address] SP Jan, SP [facility] [address] [id number] [address] [place] [address], [place] [address] SP December, SP [facility] [address] [id number] [address] [place] [address], [place] [address] SP December, SP [facility] [address] [id number] [address] [place] [address], [place] [address] SP December, SP [facility] [address] [id number] [address] [place] [address], [place] [address] SP December, SP [facility] [address] [id number] [address] [place] [address], [place] [address] SP December, SP [facility] [address] [id number] [address] [place] [address], [place] [address] SP Nov, SP [facility] [address] [id number] [address] [place] [address], [place] [address] SP Nov, SP [facility] [address] [id number] [address] [place] [address], [place] [address] SP Nov, SP [facility] [address] [id number] [address] [place] [address], [place] [address] SP Nov, SP [facility] [address] [id number] [id number] Nov, SP SP [facility] [address] [id number] [address] [place] [address], [place] [address] SP Nov, SP [facility] [address] [id number] [address] [place] [address], [place] [address] SP Oct, SP [facility] [address] [id number] [address] [place] [address], [place] [address] SP Oct, SP [facility] [address] [id number] [address] [place] [address], [place] [address] SP Oct, SP [facility] [address] [id number] [address] [place] [address], [place] [address] SP Oct, SP [facility] [address] [id number] [address] [place] [address], [place] [address] SP Oct, SP [facility] [address] [id number] [address] [place] [address], [place] [address] SP Oct, SP [facility] [address] [id number] [address] [place] [address], [place] [address] SP Oct, SP [facility] [address] [id number] [address] [place] [address], [place] [address] SP Oct, SP [facility] [address] [id number] [address] [place] [address], [place] [address] SP Oct, SP [facility] [address] [id number] [address] [place] [address], [place] [address] SP Oct, SP [facility] [address] [id number] [address] [place] [address], [place] [address] SP Sep, SP [facility] [address] [id number] [address] [place] [address], [place] [address] SP Sep, SP [facility] [address] [id number] [address] [place] [address], [place] [address] SP Sep, SP [facility] [address] [id number] [address] [place] [address], [place] [address] SP Sep, SP [facility] [address] [id number] [address] [place] [address], [place] [address] SP Sep, SP [facility] [address] [id number] [address] [place] [address], [place] [address] SP Sep, SP [facility] [address] [id number] [address] [place] [address], [place] [address] SP Sep, SP [facility] [address] [id number] [address] [place] [address], [place] [address] SP Sep, SP [facility] [address] [id number] [address] [place] [address], [place] [address] SP Aug, SP [facility] [address] [id number] [address] [place] [address], [place] [address] SP Aug, SP [facility] [address] [id number] [address] [place] [address], [place] [address] SP Jul, SP [facility] [address] [id number] [address] [place] [address], [place] [address] SP Jul, SP [facility] [address] [id number] [address] [place] [address], [place] [address] SP Jul, SP [facility] [address] [id number] [address] [place] [address], [place] [address] SP Jul, SP [facility] [address] [id number] [address] [place] [address], [place] [address] SP Jul, SP [facility] [address] [id number] [address] [place] [address], [place] [address] SP Jul, SP [facility] [address] [id number] [address] [place] [address], [place] [address] SP Jul, SP [facility] [address] [id number] [address] [place] [address], [place] [address] SP Jul, SP [facility] [address] [id number] [address] [place] [address], [place] [address] SP Jul, SP [facility] [address] [id number] [address] [place] [address], [place] [address] SP Jul, SP [facility] [address] [id number] [address] [place] [address], [place] [address] SP Jul, SP [facility] [address] [id number] [address] [place] [address], [place] [address] SP Jul, SP [facility] [address] [id number] [address] [place] [address] SP Jun, SP [facility] [address] [id number] [address] [place] [address], [place] [address] SP Jun, SP [facility] [address] [id number] [address] [place] [address], [place] [address] SP May, SP [facility] [address] [id number] [address] [place] [address], [place] [address] SP May, SP [facility] [address] [id number] [address] [place] [address], [place] [address] SP May, SP [facility] [address] [id number] [address] [place] [address], [place] [address] SP May, SP [facility] [address] [id number] [address] [place] [address], [place] [address] SP May, SP [facility] [address] [id number] [address] [place] [address], [place] [address] SP May, SP [facility] [address] [id number] [address] [place] [address], [place] [address] SP May, SP [facility] [address] [id number] [address] [place] [address], [place] [address] SP May, SP [facility] [address] [id number] [address] [place] [address], [place] [address] SP May, SP [facility] [address] [id number] [address] [place] [address] SP May, SP [facility] [address] [id number] [address] [place] [address], [place] [address] SP Apr, SP [facility] [address] [id number] [address] [place] [address] SP Apr, SP [facility] [address] [id number] [address] [place] [address] SP Apr, SP [facility] [address] [id number] [address] [place] [address] SP Jan, SP [facility] [address] [id number] [address] [place] [address], [place] [address] SP December, SP [facility] [address] [id number] [address] [place] [address], [place] [address] SP December, SP [facility] [address] [id number] [address] [place] [address] SP December, SP [facility] [address] [id number] [address] [place] [address], [place] [address] SP 30 Nov, 2012 SP [facility] [address] [id number] [address] [place] [address], [place] [address] SP Oct, SP [facility] [address] [id number] [place] [id number] Oct, SP SP [facility] [address] [id number] [address] [place] [address], [place] [address] SP Oct, SP [facility] [address] [id number] [place] [id number] Sep, SP SP [facility] [address] [id number] [address] [place] [address], [place] [address] SP Sep, SP [facility] [address] [id number] [address] [place] [address], [place] [address] SP Sep, SP [facility] [address] [id number] [address] [place] [address] SP Aug, SP [facility] [address] [id number] [address] [place] [address], [place] [address] SP Aug, SP [facility] [address] [id number] [address] [place] [address], [place] [address] SP Jul, SP [facility] [address] [id number] [address] [place] [address] SP Jul, SP [facility] [address] [id number] [address] [place] [address] SP Jun, SP [facility] [address] [id number] [address] [place] [address], [place] [address] SP Jun, SP [facility] [address] [id number] [address] [place] [address], [place] [address] SP May, SP [facility] [address] [id number] [address] [place] [address] SP May, SP [facility] [address] [id number] [address] [place] [address] SP May, SP [facility] [address] [facility] [id number] [address] [place] [address] SP May, [facility] [address] [facility] [id number] [address] [place] [address] SP May, SP [facility] [address] [facility] [id number] [address] [place] [address] SP May, [facility] [address] [facility] [id number] [address] [place] [address] SP May, [facility] [address] [id number] [place] [id number] Mar, SP [facility] [address] [facility] [id number] [address] [place] [address] SP December, [facility] [address] [facility] [id number] [address] [place] [address] SP December, SP IMMUNIZATIONS No Known Immunizations [...]
--- OUTSIDE RECORDS SUMMARY | 2019-06-07 03:52 | XMS REPORT ---
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 Name Role Phone POS PADMINI GODWIN Unavailable SP PROBLEMS Type Condition ICD9-CM Code [id number] Code Onset Dates Condition S tatus SNOMED POS Problem Abdominal pain, generalized 789.07 Ac tive [id number] POS Problem Need for prophylactic vaccination and inoculation, Influen za V04.81 SP [id number] SP Problem Undiagnosed cardiac murmurs 785.2 Ac tive [id number] SP Problem Other dyspnea and respiratory abnormalities 786.09 Active 996873127 SP Problem Edema 782.3 Active 731907763 SP Problem Loss of weight 783.21 Active 23635 5001 SP Problem Alcoholic cirrhosis of liver 571.2 A ctive 149381153 SP Problem Counseling on substance use and abuse V65.42 Active 489070627 SP Problem Unspecified sleep disturbance 780.50 Active 68207739 SP Problem Chronic airway obstruction, not elsewhere classified 496 Active SP Problem Obstructive chronic bronchitis, with (acute) exacerbation 491.21 SP [id number] SP Problem Unspecified gastritis and ga stroduodenitis without mention of hemorrhage SP 535.50 Active 881758369 SP Problem Other and unspecified hyperlipidemia 272.4 Active 48412093 SP Problem Unspecified dental caries 521.00 Acti ve 62575251 SP Problem Unspecified follow-up examination V67.9 Active 298208922 SP Problem Herpes simplex without mention of complication 054.9 Active SP Problem Incisional hernia without mention of obstruction or gangre ne 553.21 SP [id number] SP Problem Personal history of noncompl iance with medical treatment, presenting SP to [facility] V15.81 Active 431741315 SP Problem STATE HEP A (ADULT) DX V05.3 Active 107389684 SP Problem Acute bronchitis 466.0 Active 105 86305 SP Problem Hypertensive chronic kidney disease, unspecified, with chronic kidney SP stage I through stage IV, or unspecified 403.90 Active 27494291 SP Problem Other and unspecified alcohol dependence , unspecified drunkenness 303.90 SP Active 028585449 SP Problem Anxiety state, unspecified 300.00 Act rola [id number] SP ALLERGIES No Information ENCOUNTERS Encounter Location Date Diagnosis POS [facility] [id number] [id number] 18 2014 Undiagnosed cardiac murmurs 785.2 ; Hype rtension 401.9 and Dizziness of SP cause 780.4 [facility] [place] [address] [facility] [id number] [address] [place] [address] SP 14 Nov, 2014 SP [facility] [place] [address] [facility] [id number] [address] [place] [address] SP Nov, SP [facility] [place] [address] [facility] [id number] [address] [place] [address] SP Oct, SP [facility] [place] [address] [facility] [id number] [address] [place] [address] SP Oct, SP [facility] [place] [address] [facility] [id number] [address] [place] [address] SP Jul, SP [facility] [place] [address] [facility] [id number] [address] [place] [address] SP Jul, SP [facility] [place] [address] [facility] [id number] [address] [place] [address] SP Jun, SP [facility] [place] [address] [facility] [id number] [address] [place] [address] SP Jun, SP [facility] [place] [address] [facility] [id number] [address] [place] [address] SP May, SP [facility] [place] [address] [facility] [id number] [address] [place] [address] SP May, SP [facility] [place] [address] [facility] [id number] [address] [place] [address] SP 16 May, 2014 SP [facility] [address] [id number] [address] [place] [address], [place] [address] SP 16 May, 2014 SP [facility] [address] [id number] [address] [place] [address], [place] [address] SP 14 May, 2014 SP [facility] [address] [id number] [address] [place] [address], [place] [address] SP 14 May, 2014 SP [facility] [address] [id number] [address] [place] [address], [place] [address] SP May, SP [facility] [address] [id number] [address] [place] [address], [place] [address] SP May, SP [facility] [address] [id number] [address] [place] [address], [place] [address] SP May, SP [facility] [address] [id number] [address] [place] [address], [place] [address] SP May, SP [facility] [address] [id number] [address] [place] [address], [place] [address] SP Jan, SP [facility] [address] [id number] [address] [place] [address], [place] [address] SP Jan, SP [facility] [address] [id number] [address] [place] [address], [place] [address] SP Jan, SP [facility] [address] [id number] [address] [place] [address], [place] [address] SP Jan, SP [facility] [address] [id number] [address] [place] [address], [place] [address] SP December, SP [facility] [address] [id number] [address] [place] [address], [place] [address] SP December, SP [facility] [address] [id number] [address] [place] [address], [place] [address] SP December, SP [facility] [address] [id number] [address] [place] [address], [place] [address] SP December, SP [facility] [address] [id number] [address] [place] [address], [place] [address] SP December, SP [facility] [address] [id number] [address] [place] [address], [place] [address] SP Nov, SP [facility] [address] [id number] [address] [place] [address], [place] [address] SP Nov, SP [facility] [address] [id number] [address] [place] [address], [place] [address] SP Nov, SP [facility] [address] [id number] [address] [place] [address], [place] [address] SP Nov, SP [facility] [address] [id number] [place] [id number] Nov, SP SP [facility] [address] [id number] [address] [place] [address], [place] [address] SP Nov, SP [facility] [address] [id number] [address] [place] [address], [place] [address] SP Oct, SP [facility] [address] [id number] [address] [place] [address], [place] [address] SP Oct, SP [facility] [address] [id number] [address] [place] [address], [place] [address] SP Oct, SP [facility] [address] [id number] [address] [place] [address], [place] [address] SP Oct, SP [facility] [address] [id number] [address] [place] [address], [place] [address] SP Oct, SP [facility] [address] [id number] [address] [place] [address], [place] [address] SP Oct, SP [facility] [address] [id number] [address] [place] [address], [place] [address] SP Oct, SP [facility] [address] [id number] [address] [place] [address], [place] [address] SP Oct, SP [facility] [address] [id number] [address] [place] [address], [place] [address] SP Oct, SP [facility] [address] [id number] [address] [place] [address], [place] [address] SP Oct, SP [facility] [address] [id number] [address] [place] [address], [place] [address] SP Sep, SP [facility] [address] [id number] [address] [place] [address], [place] [address] SP Sep, SP [facility] [address] [id number] [address] [place] [address], [place] [address] SP Sep, SP [facility] [address] [id number] [address] [place] [address], [place] [address] SP Sep, SP [facility] [address] [id number] [address] [place] [address], [place] [address] SP Sep, SP [facility] [address] [id number] [address] [place] [address], [place] [address] SP Sep, SP [facility] [address] [id number] [address] [place] [address], [place] [address] SP Sep, SP [facility] [address] [id number] [address] [place] [address], [place] [address] SP Sep, SP [facility] [address] [id number] [address] [place] [address], [place] [address] SP Aug, SP [facility] [address] [id number] [address] [place] [address], [place] [address] SP Aug, SP [facility] [address] [id number] [address] [place] [address], [place] [address] SP Jul, SP [facility] [address] [id number] [address] [place] [address], [place] [address] SP Jul, SP [facility] [address] [id number] [address] [place] [address], [place] [address] SP Jul, SP [facility] [address] [id number] [address] [place] [address], [place] [address] SP Jul, SP [facility] [address] [id number] [address] [place] [address], [place] [address] SP Jul, SP [facility] [address] [id number] [address] [place] [address], [place] [address] SP Jul, SP [facility] [address] [id number] [address] [place] [address], [place] [address] SP Jul, SP [facility] [address] [id number] [address] [place] [address], [place] [address] SP Jul, SP [facility] [address] [id number] [address] [place] [address], [place] [address] SP Jul, SP [facility] [address] [id number] [address] [place] [address], [place] [address] SP Jul, SP [facility] [address] [id number] [address] [place] [address], [place] [address] SP Jul, SP [facility] [address] [id number] [address] [place] [address], [place] [address] SP Jul, SP [facility] [address] [id number] [address] [place] [address] SP Jun, SP [facility] [address] [id number] [address] [place] [address], [place] [address] SP Jun, SP [facility] [address] [id number] [address] [place] [address], [place] [address] SP May, SP [facility] [address] [id number] [address] [place] [address], [place] [address] SP May, SP [facility] [address] [id number] [address] [place] [address], [place] [address] SP May, SP [facility] [address] [id number] [address] [place] [address], [place] [address] SP May, SP [facility] [address] [id number] [address] [place] [address], [place] [address] SP May, SP [facility] [address] [id number] [address] [place] [address], [place] [address] SP May, SP [facility] [address] [id number] [address] [place] [address], [place] [address] SP May, SP [facility] [address] [id number] [address] [place] [address], [place] [address] SP May, SP [facility] [address] [id number] [address] [place] [address], [place] [address] SP May, SP [facility] [address] [id number] [address] [place] [address] SP May, SP [facility] [address] [id number] [address] [place] [address], [place] [address] SP Apr, SP [facility] [address] [id number] [address] [place] [address] SP Apr, SP [facility] [address] [id number] [address] [place] [address] SP Apr, SP [facility] [address] [id number] [address] [place] [address] SP Jan, SP [facility] [address] [id number] [address] [place] [address], [place] [address] SP December, SP [facility] [address] [id number] [address] [place] [address], [place] [address] SP December, SP [facility] [address] [id number] [address] [place] [address] SP December, SP [facility] [address] [id number] [address] [place] [address], [place] [address] SP 30 Nov, 2012 SP [facility] [address] [id number] [address] [place] [address], [place] [address] SP Oct, SP [facility] [address] [id number] [place] [id number] Oct, SP SP [facility] [address] [id number] [address] [place] [address], [place] [address] SP Oct, SP [facility] [address] [id number] [place] [id number] Sep, SP SP [facility] [address] [id number] [address] [place] [address], [place] [address] SP Sep, SP [facility] [address] [id number] [address] [place] [address], [place] [address] SP Sep, SP [facility] [address] [id number] [address] [place] [address] SP Aug, SP [facility] [address] [id number] [address] [place] [address], [place] [address] SP Aug, SP [facility] [address] [id number] [address] [place] [address], [place] [address] SP Jul, SP [facility] [address] [id number] [address] [place] [address] SP Jul, SP [facility] [address] [id number] [address] [place] [address] SP Jun, SP [facility] [address] [id number] [address] [place] [address], [place] [address] SP Jun, SP [facility] [address] [id number] [address] [place] [address], [place] [address] SP May, SP [facility] [address] [id number] [address] [place] [address] SP May, SP [facility] [place] [address] [id number] [address] [place] [address] SP May, SP [facility] [place] [address] [facility] [id number] [address] [place] [address] SP May, [facility] [address] [facility] [id number] [address] [place] [address] SP May, SP [facility] [place] [address] [facility] [id number] [address] [place] [address] SP May, [facility] [address] [facility] [id number] [address] [place] [address] SP May, [facility] [address] [id number] [place] [id number] Mar, SP [facility] [address] [facility] [id number] [address] [place] [address] SP December, [facility] [address] [facility] [id number] [address] [place] [address] SP December, SP IMMUNIZATIONS No Known Immunizations [...]
--- OUTSIDE RECORDS SUMMARY | 2019-06-07 03:53 | XMS REPORT ---
Author Author Migration, Doctor POS Organization [facility] Crow[place]u SP Address Unknown SP Phone Unavailable SP Care Team Providers Care Veneer Glue Jointer Feedback Name Role Phone POS Migration, Doctor Unavailable Unavailable SP PROBLEMS Type Condition ICD9-CM Code ODI20-SE Code Onset Dates Condition S tatus SNOMED POS Problem Abdominal pain, generalized 789.07 Ac tive [id number] POS Problem Need for prophylactic vaccination and inoculation, Influen za V04.81 SP [id number] SP Problem Undiagnosed cardiac murmurs 785.2 Ac tive 395903996 SP Problem Other dyspnea and respiratory abnormalities 786.09 Active 791704516 SP Problem Edema 782.3 Active 014900152 SP Problem Loss of weight 783.21 Active 83902 5001 SP Problem Alcoholic cirrhosis of liver 571.2 A ctive 873979390 SP Problem Counseling on substance use and abuse V65.42 Active 364744525 SP Problem Unspecified sleep disturbance 780.50 Active 55201007 SP Problem Chronic airway obstruction, not elsewhere classified 496 Active SP Problem Obstructive chronic bronchitis, with (acute) exacerbation 491.21 SP [id number] SP Problem Unspecified gastritis and ga stroduodenitis without mention of hemorrhage SP 535.50 Active 157646934 SP Problem Other and unspecified hyperlipidemia 272.4 Active 75260000 SP Problem Unspecified dental caries 521.00 Acti ve 16034062 SP Problem Unspecified follow-up examination V67.9 Active 970526061 SP Problem Herpes simplex without mention of complication 054.9 Active SP Problem Incisional hernia without mention of obstruction or gangre ne 553.21 SP 669708890 SP Problem Personal history of noncompl iance with medical treatment, presenting SP to health V15.81 Active 143666999 SP Problem STATE HEP A (ADULT) DX V05.3 Active 602021671 SP Problem Acute bronchitis 466.0 Active 105 89144 SP Problem Hypertensive chronic kidney disease, unspecified, with chronic kidney SP stage I through stage IV, or unspecified 403.90 Active 69553993 SP Problem Other and unspecified alcohol dependence , unspecified drunkenness 303.90 SP Active 316215537 SP Problem Anxiety state, unspecified 300.00 Act rola [id number] SP ALLERGIES No Information ENCOUNTERS Encounter Location Date Diagnosis POS [id number] [place] [address] [id number] 18 2014 Undiagnosed cardiac murmurs 785.2 ; Hype rtension 401.9 and Dizziness of SP cause 780.4 [facility] [place] [address] [facility] [id number] [address] [place] [address] SP 14 Nov, 2014 SP [facility] [place] [address] [address] SP Nov, SP [facility] [place] [address] [address] SP Oct, SP [facility] [place] [address] [address] SP Oct, SP [facility] [place] [id number] [place] [address] SP Jul, SP [facility] [place] [address] [address] SP Jul, SP [facility] [place] [address] [address] SP Jun, SP [facility] [place] [address] [address] SP Jun, SP [facility] [place] [address] [id number] [address] [place] [address] SP May, SP [facility] [place] [address] [address] SP May, SP [facility] [place] [address] [id number] [address] [place] [address] SP May, SP [facility] [place] [address] [address] SP 16 May, 2014 SP [facility] [address] [id number] [address] [place] [address], [place] [address] SP May, SP [facility] [address] [id number] [address] [place] [address], [place] [address] SP May, SP [facility] [address] [id number] [address] [place] [address], [place] [address] SP May, SP [facility] [address] [id number] [address] [place] [address], [place] [address] SP May, SP [facility] [address] [id number] [address] [place] [address], [place] [address] SP May, SP [facility] [address] [id number] [address] [place] [address], [place] [address] SP May, SP [facility] [address] [id number] [address] [place] [address], [place] [address] SP Jan, SP [facility] [address] [id number] [address] [place] [address], [place] [address] SP Jan, SP [facility] [address] [id number] [address] [place] [address], [place] [address] SP Jan, SP [facility] [address] [id number] [address] [place] [address], [place] [address] SP Jan, SP [facility] [address] [id number] [address] [place] [address] SP December, SP [facility] [address] [id number] [address] [place] [address], [place] [address] SP December, SP [facility] [address] [id number] [address] [place] [address], [place] [address] SP December, SP [facility] [address] [id number] [address] [place] [address], [place] [address] SP December, SP [facility] [address] [id number] [address] [place] [address], [place] [address] SP December, SP [facility] [address] [id number] [address] [place] [address], [place] [address] SP Nov, SP [facility] [address] [id number] [address] [place] [address], [place] [address] SP Nov, SP [facility] [address] [id number] [address] [place] [address], [place] [address] SP Nov, SP [facility] [address] [id number] [address] [place] [address], [place] [address] SP Nov, SP [facility] [address] [id number] [place] [id number] Nov, SP SP [facility] [address] [id number] [address] [place] [address], [place] [address] SP Nov, SP [facility] [address] [id number] [address] [place] [address], [place] [address] SP Oct, SP [facility] [address] [id number] [address] [place] [address], [place] [address] SP Oct, SP [facility] [address] [id number] [address] [place] [address], [place] [address] SP Oct, SP [facility] [address] [id number] [address] [place] [address], [place] [address] SP Oct, SP [facility] [address] [id number] [address] [place] [address], [place] [address] SP Oct, SP [facility] [address] [id number] [address] [place] [address], [place] [address] SP Oct, SP [facility] [address] [id number] [address] [place] [address], [place] [address] SP Oct, SP [facility] [address] [id number] [address] [place] [address], [place] [address] SP Oct, SP [facility] [address] [id number] [address] [place] [address], [place] [address] SP Oct, SP [facility] [address] [id number] [address] [place] [address], [place] [address] SP Oct, SP [facility] [address] [id number] [address] [place] [address], [place] [address] SP Sep, SP [facility] [address] [id number] [address] [place] [address], [place] [address] SP Sep, SP [facility] [address] [id number] [address] [place] [address], [place] [address] SP Sep, SP [facility] [address] [id number] [address] [place] [address], [place] [address] SP Sep, SP [facility] [address] [id number] [address] [place] [address], [place] [address] SP Sep, SP [facility] [address] [id number] [address] [place] [address], [place] [address] SP Sep, SP [facility] [address] [id number] [address] [place] [address], [place] [address] SP Sep, SP [facility] [address] [facility] [id number] [address] [place] [address] SP Sep, SP [facility] [address] [id number] [address] [place] [address] SP Aug, SP [facility] [address] [id number] [address] [place] [address] SP Aug, SP [facility] [address] [id number] [address] [place] [address], [place] [address] SP Jul, SP [facility] [address] [facility] [id number] [address] [place] [address] SP Jul, SP [facility] [address] [id number] [address] [place] [address] SP Jul, SP [facility] [address] [id number] [address] [place] [address], [place] [address] SP Jul, SP [facility] [address] [id number] [address] [place] [address], [place] [address] SP Jul, SP [facility] [address] [id number] [address] [place] [address], [place] [address] SP Jul, SP [facility] [address] [id number] [address] [place] [address], [place] [address] SP Jul, SP [facility] [address] [id number] [address] [place] [address], [place] [address] SP Jul, SP [facility] [address] [id number] [address] [place] [address], [place] [address] SP Jul, SP [facility] [address] [id number] [address] [place] [address], [place] [address] SP Jul, SP [facility] [address] [id number] [address] [place] [address], [place] [address] SP Jul, SP [facility] [address] [id number] [address] [place] [address], [place] [address] SP Jul, SP [facility] [address] [id number] [address] [place] [address], [place] [address] SP Jun, SP [facility] [address] [id number] [address] [place] [address] SP Jun, SP [facility] [address] [id number] [address] [place] [address], [place] [address] SP May, SP [facility] [address] [id number] [address] [place] [address], [place] [address] SP May, SP [facility] [address] [id number] [address] [place] [address], [place] [address] SP May, SP [facility] [address] [id number] [address] [place] [address], [place] [address] SP May, SP [facility] [address] [id number] [address] [place] [address], [place] [address] SP May, SP [facility] [address] [id number] [address] [place] [address], [place] [address] SP May, SP [facility] [address] [id number] [address] [place] [address], [place] [address] SP May, SP [facility] [address] [id number] [address] [place] [address], [place] [address] SP May, SP [facility] [address] [id number] [address] [place] [address], [place] [address] SP May, SP [facility] [address] [id number] [address] [place] [address], [place] [address] SP May, SP [facility] [address] [id number] [address] [place] [address], [place] [address] SP Apr, SP [facility] [address] [id number] [address] [place] [address], [place] [address] SP Apr, SP [facility] [address] [id number] [address] [place] [address], [place] [address] SP Apr, SP [facility] [address] [id number] [address] [place] [address] SP Jan, SP [facility] [address] [id number] [address] [place] [address], [place] [address] SP December, SP [facility] [address] [id number] [address] [place] [address], [place] [address] SP December, SP [facility] [address] [id number] [address] [place] [address], [place] [address] SP December, SP [facility] [address] [id number] [address] [place] [address], [place] [address] SP Nov, SP [facility] [address] [id number] [address] [place] [address], [place] [address] SP Oct, SP [facility] [address] [id number] [place] [id number] Oct, SP SP [facility] [address] [id number] [address] [place] [address], [place] [address] SP Oct, SP [facility] [address] [id number] [place] [id number] Sep, SP SP [facility] [address] [id number] [address] [place] [address], [place] [address] SP Sep, SP [facility] [address] [id number] [address] [place] [address], [place] [address] SP Sep, SP [facility] [address] [id number] [address] [place] [address], [place] [address] SP Aug, SP [facility] [address] [id number] [address] [place] [address], [place] [address] SP Aug, SP [facility] [address] [id number] [address] [place] [address], [place] [address] SP Jul, SP [facility] [address] [id number] [address] [place] [address], [place] [address] SP Jul, SP [facility] [address] [id number] [address] [place] [address], [place] [address] SP Jun, SP [facility] [address] [id number] [address] [place] [address], [place] [address] SP Jun, SP [facility] [address] [id number] [address] [place] [address], [place] [address] SP May, SP [facility] [address] [id number] [address] [place] [address], [place] [address] SP May, SP [facility] [address] [id number] [address] [place] [address], [place] [address] SP May, [facility] [address] [facility] [id number] [address] [place] [address] SP May, [facility] [address] [facility] [id number] [address] [place] [address] SP May, [facility] [address] [facility] [id number] [address] [place] [address] SP May, [facility] [address] [facility] [id number] [address] [place] [address] SP May, [facility] [address] [id number] [place], [facility] [id number] Mar, SP [facility] [address] [facility] [id number] [address] [place] [address] SP December, [facility] [address] [facility] [id number] [address] [place] [address] SP December, SP IMMUNIZATIONS No Known Immunizations SOCIAL HISTORY Never Assessed REASON FOR VISIT EMR-[facility] PLAN OF CARE VITAL SIGNS MEDICATIONS No [...]
--- OUTSIDE RECORDS SUMMARY | 2019-06-07 03:53 | XMS REPORT ---
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 Name Role Phone POS Migration, Doctor Unavailable Unavailable SP PROBLEMS Type Condition ICD9-CM Code [id number] Code Onset Dates Condition S tatus SNOMED POS Problem Abdominal pain, generalized 789.07 Ac tive 087566261 POS Problem Need for prophylactic vaccination and inoculation, Influen za V04.81 SP [id number] SP Problem Undiagnosed cardiac murmurs 785.2 Ac tive 175241897 SP Problem Other dyspnea and respiratory abnormalities 786.09 Active 180568199 SP Problem Edema 782.3 Active 869633784 SP Problem Loss of weight 783.21 Active 64286 5001 SP Problem Alcoholic cirrhosis of liver 571.2 A ctive 453021529 SP Problem Counseling on substance use and abuse V65.42 Active 793800089 SP Problem Unspecified sleep disturbance 780.50 Active 62685508 SP Problem Chronic airway obstruction, not elsewhere classified 496 Active SP Problem Obstructive chronic bronchitis, with (acute) exacerbation 491.21 SP 509451243 SP Problem Unspecified gastritis and ga stroduodenitis without mention of hemorrhage SP 535.50 Active 050888671 SP Problem Other and unspecified hyperlipidemia 272.4 Active 17423918 SP Problem Unspecified dental caries 521.00 Acti ve 40377856 SP Problem Unspecified follow-up examination V67.9 Active 889035695 SP Problem Herpes simplex without mention of complication 054.9 Active SP Problem Incisional hernia without mention of obstruction or gangre ne 553.21 SP 828189275 SP Problem Personal history of noncompl iance with medical treatment, presenting SP to health V15.81 Active 706946975 SP Problem STATE HEP A (ADULT) DX V05.3 Active 624072146 SP Problem Acute bronchitis 466.0 Active 105 36754 SP Problem Hypertensive chronic kidney disease, unspecified, with chronic kidney SP stage I through stage IV, or unspecified 403.90 Active 94567585 SP Problem Other and unspecified alcohol dependence , unspecified drunkenness 303.90 SP Active 780111505 SP Problem Anxiety state, unspecified 300.00 Act rola 306367023 SP ALLERGIES Substance Reaction Event Type Date Status POS Lisinapril Unknown Non Drug Allergy Nov, Active SP Morphin Unknown Non Drug Allergy Nov, Active SP ENCOUNTERS Encounter [facility] Date Diagnosis [id number] [place] [address] [id number] 18 SP 2014 Undiagnosed cardiac murmurs 785.2 ; Hype rtension 401.9 and Dizziness of SP cause 780.4 [facility] [address] [facility] [id number] [address] [place] [id number] SP Nov, SP [facility] [address] [facility] [id number] [address] [place] [address] SP Nov, SP [facility] [address] [facility] [id number] [address] [place] [phone] SP Oct, SP [facility] [address] [facility] [id number] [address] [place] [id number] SP Oct, SP [facility] [address] [facility] [id number] [address] [place] [phone] SP Jul, SP [facility] [address] [facility] [id number] [address] [place] [address] SP Jul, SP [facility] [address] [facility] [id number] [address] [place] [address] SP Jun, SP [facility] [address] [facility] [id number] [address] [place] [phone] SP Jun, SP [facility] [address] [facility] [id number] [address] [place] [phone] SP May, SP [facility] [address] [facility] [id number] [address] [place] [phone] SP May, SP [facility] [address] [facility] [id number] [address] [place] [phone] SP 16 May, 2014 SP [facility] [address] [id number] [address] [place] [address], [place] [address] SP 16 May, 2014 SP [facility] [address] [id number] [address] [place] [address], [place] [address] SP 14 May, 2014 SP [facility] [address] [id number] [address] [place] [address], [place] [address] SP May, SP [facility] [address] [id number] [address] [place] [address], [place] [address] SP May, SP [facility] [address] [id number] [address] [place] [address], [place] [address] SP May, SP [facility] [address] [id number] [address] [place] [address], [place] [address] SP May, SP [facility] [address] [id number] [address] [place] [address], [place] [address] SP May, SP [facility] [address] [id number] [address] [place] [address], [place] [address] SP Jan, SP [facility] [address] [id number] [address] [place] [address], [place] [address] SP Jan, SP [facility] [address] [id number] [address] [place] [address], [place] [address] SP Jan, SP [facility] [address] [id number] [address] [place] [address] SP Jan, SP [facility] [address] [id number] [address] [place] [address], [place] [address] SP December, SP [facility] [address] [id number] [address] [place] [address], [place] [address] SP December, SP [facility] [address] [id number] [address] [place] [address], [place] [address] SP December, SP [facility] [address] [id number] [address] [place] [address], [place] [address] SP December, SP [facility] [address] [id number] [address] [place] [address], [place] [address] SP December, SP [facility] [address] [id number] [address] [place] [address], [place] [address] SP Nov, SP [facility] [address] [id number] [address] [place] [address], [place] [address] SP Nov, SP [facility] [address] [id number] [address] [place] [address], [place] [address] SP Nov, SP [facility] [address] [id number] [address] [place] [address], [place] [address] SP Nov, SP [facility] [address] [id number] [place] [id number] Nov, SP SP [facility] [address] [id number] [address] [place] [address], [place] [address] SP Nov, SP [facility] [address] [id number] [address] [place] [address], [place] [address] SP Oct, SP [facility] [address] [id number] [address] [place] [address], [place] [address] SP Oct, SP [facility] [address] [id number] [address] [place] [address], [place] [address] SP Oct, SP [facility] [address] [id number] [address] [place] [address], [place] [address] SP Oct, SP [facility] [address] [id number] [address] [place] [address], [place] [address] SP Oct, SP [facility] [address] [id number] [address] [place] [address], [place] [address] SP Oct, SP [facility] [address] [id number] [address] [place] [address], [place] [address] SP Oct, SP [facility] [address] [id number] [address] [place] [address], [place] [address] SP Oct, SP [facility] [address] [id number] [address] [place] [address], [place] [address] SP Oct, SP [facility] [address] [id number] [address] [place] [address], [place] [address] SP Oct, SP [facility] [address] [id number] [address] [place] [address], [place] [address] SP Sep, SP [facility] [address] [id number] [address] [place] [address], [place] [address] SP Sep, SP [facility] [address] [id number] [address] [place] [address], [place] [address] SP Sep, SP [facility] [address] [id number] [address] [place] [address], [place] [address] SP Sep, SP [facility] [address] [id number] [address] [place] [address], [place] [address] SP Sep, SP [facility] [address] [id number] [address] [place] [address], [place] [address] SP Sep, SP [facility] [address] [id number] [address] [place] [address], [place] [address] SP Sep, SP [facility] [address] [id number] [address] [place] [address], [place] [address] SP Sep, SP [facility] [address] [id number] [address] [place] [address], [place] [address] SP Aug, SP [facility] [address] [id number] [address] [place] [address], [place] [address] SP Aug, SP [facility] [address] [id number] [address] [place] [address], [place] [address] SP Jul, SP [facility] [address] [id number] [address] [place] [address], [place] [address] SP Jul, SP [facility] [address] [id number] [address] [place] [address], [place] [address] SP Jul, SP [facility] [address] [id number] [address] [place] [address], [place] [address] SP Jul, SP [facility] [address] [id number] [address] [place] [address], [place] [address] SP Jul, SP [facility] [address] [id number] [address] [place] [address], [place] [address] SP Jul, SP [facility] [address] [id number] [address] [place] [address], [place] [address] SP Jul, SP [facility] [address] [id number] [address] [place] [address], [place] [address] SP Jul, SP [facility] [address] [id number] [address] [place] [address], [place] [address] SP Jul, SP [facility] [address] [id number] [address] [place] [address], [place] [address] SP Jul, SP [facility] [address] [id number] [address] [place] [address], [place] [address] SP Jul, SP [facility] [address] [id number] [address] [place] [address], [place] [address] SP Jul, SP [facility] [address] [id number] [address] [place] [address] SP Jun, SP [facility] [address] [id number] [address] [place] [address], [place] [address] SP Jun, SP [facility] [address] [id number] [address] [place] [address], [place] [address] SP May, SP [facility] [address] [id number] [address] [place] [address], [place] [address] SP May, SP [facility] [address] [id number] [address] [place] [address], [place] [address] SP May, SP [facility] [address] [id number] [address] [place] [address], [place] [address] SP May, SP [facility] [address] [id number] [address] [place] [address], [place] [address] SP May, SP [facility] [address] [id number] [address] [place] [address], [place] [address] SP May, SP [facility] [address] [id number] [address] [place] [address], [place] [address] SP May, SP [facility] [address] [id number] [address] [place] [address], [place] [address] SP May, SP [facility] [address] [id number] [address] [place] [address], [place] [address] SP May, SP [facility] [address] [id number] [address] [place] [address], [place] [address] SP May, SP [facility] [address] [id number] [address] [place] [address], [place] [address] SP Apr, SP [facility] [address] [id number] [address] [place] [address] SP Apr, SP [facility] [address] [id number] [address] [place] [address] SP Apr, SP [facility] [address] [id number] [address] [place] [address] SP Jan, SP [facility] [address] [id number] [address] [place] [address], [place] [address] SP December, SP [facility] [address] [id number] [address] [place] [address], [place] [address] SP December, SP [facility] [address] [id number] [address] [place] [address] SP December, SP [facility] [address] [id number] [address] [place] [address] SP 30 Nov, 2012 SP [facility] [address] [id number] [address] [place] [address] SP 15 Oct, 2012 SP [facility] [address] [id number] [place] [id number] Oct, SP SP [facility] [address] [id number] [address] [place] [address] SP Oct, SP [facility] [address] [id number] [place] [id number] Sep, SP SP [facility] [address] [id number] [address] [place] [id number] SP Sep, SP [facility] [address] [id number] [address] [place] [address] SP Sep, SP [facility] [address] [id number] [address] [place] [address] SP Aug, SP [facility] [address] [id number] [address] [place] [address] SP Aug, SP [facility] [address] [id number] [address] [place] [address] SP Jul, SP [facility] [address] [id number] [address] [place] [address] SP Jul, SP [facility] [address] [id number] [address] [place] [address] SP Jun, SP [facility] [address] [id number] [address] [place] [address] SP Jun, SP [facility] [address] [id number] [address] [place] [phone] SP May, SP [facility] [address] [id number] [address] [place] [address] SP May, SP [facility] [address] [id number] [address] [place] [phone] SP May, SP [facility] [address] [facility] [id number] [address] [place] [address] SP May, SP [facility] [address] [facility] [id number] [address] [place] [phone] SP May, SP [facility] [address] [facility] [id number] [address] [place] [phone] SP May, [facility] [place] [address] [facility] [id number] [address] [place] [phone] SP May, SP [facility] [address] [id number] [place], [place] [id number] Mar, SP [facility] [place] [address] [facility] [id number] [address] [place] [phone] SP December, SP [facility] [address] [facility] [id number] [address] [place] [phone] SP December, SP IMMUNIZATIONS No Known Immunizations SOCIAL HISTORY Never Assessed [place]AS[place] FOR [place] [place] VITAL SIGNS MEDICATIONS Medication Instructions Dosage Frequency Start Date End Date Duration S tatus POS Colace 100 mg 1 capsule by Oral route 2 times per day PRN May, SP Coreg 25 mg 1 tablet by Oral route 2 times per day 09 Oc 2013 Active SP Acyclovir 400 mg 1 tablet by Oral route 3 times per da y for 5 days Apr, Active SP Ferrous Sulfate 325 mg (65 mg iron) 1 ta blet by Oral route 3 times per day SP TAKE WITH FOOD Aug, Active SP Synthroid 175 mcg take 1 tablet by Oral route 1 time per day Oct, SP Active SP Carafate 1 gram 1 tablet by Oral rou te 4 times per day voucher 1 month, with SP Nov, Active SP PredniSONE 20 mg 2 tablet by Oral route 1 time p er day for 6 day(s)with food SP May, Active SP Aciphex 20 mg 1 tablet by Oral route 1 time per day vo ucher 1 month please SP May, 2014 Active SP Naproxen 250 mg 1 tablet by Oral rou te 2 times per day PRN take with food, SP Nov, Active SP Advair Diskus 100-50 mcg/dose inhale 1 p uff by Inhalation route in the morning SPand evening 2 times per day approximately 12 hours apart rinse mouth and spit after use Oct, Active SP Combivent 18-103 mcg/actuation 2 puffs by Inhala tion route 4 times per dayPRN SP Aug, Active SP Ultram 50 mg take 1 tablet by Ora l route every 12 hours as needed PRN for SP May, Active SP Combivent Respimat 20-100 mcg/actuation inhale 1 puff ; may take additional SP as needed 4 times per day not to exceed 6 puffs in 24hrs Oct SP Amoxicillin 500 mg 2 capsule by Oral route 2 times per day for 10 day(s) 2012 Active SP RESULTS No Results PROCEDURES No Known procedures [...]
--- OUTSIDE RECORDS SUMMARY | 2019-06-07 03:53 | XMS REPORT ---
Author Author Migration, Doctor POS Organization [facility] [employer] SP Address Unknown SP Phone Unavailable SP Care Team Providers Care Manager Collection Name Role Phone POS Migration, Doctor Unavailable Unavailable SP PROBLEMS Type Condition ICD9-CM Code CHU50-RF Code Onset Dates Condition S tatus SNOMED POS Problem Abdominal pain, generalized 789.07 Ac tive 280980570 POS Problem Need for prophylactic vaccination and inoculation, Influen za V04.81 SP [id number] SP Problem Undiagnosed cardiac murmurs 785.2 Ac tive [id number] SP Problem Other dyspnea and respiratory abnormalities 786.09 Active 463670692 SP Problem Edema 782.3 Active 600948666 SP Problem Loss of weight 783.21 Active 27567 5001 SP Problem Alcoholic cirrhosis of liver 571.2 A ctive 719449356 SP Problem Counseling on substance use and abuse V65.42 Active 326904587 SP Problem Unspecified sleep disturbance 780.50 Active 96235889 SP Problem Chronic airway obstruction, not elsewhere classified 496 Active SP Problem Obstructive chronic bronchitis, with (acute) exacerbation 491.21 SP 393365354 SP Problem Unspecified gastritis and ga stroduodenitis without mention of hemorrhage SP 535.50 Active 480560743 SP Problem Other and unspecified hyperlipidemia 272.4 Active 68014118 SP Problem Unspecified dental caries 521.00 Acti ve 21690605 SP Problem Unspecified follow-up examination V67.9 Active 690596349 SP Problem Herpes simplex without mention of complication 054.9 Active SP Problem Incisional hernia without mention of obstruction or gangre ne 553.21 SP 663525165 SP Problem Personal history of noncompl iance with medical treatment, presenting SP to health V15.81 Active 359217594 SP Problem STATE HEP A (ADULT) DX V05.3 Active 167522733 SP Problem Acute bronchitis 466.0 Active 105 96683 SP Problem Hypertensive chronic kidney disease, unspecified, with chronic kidney SP stage I through stage IV, or unspecified 403.90 Active 73336633 SP Problem Other and unspecified alcohol dependence , unspecified drunkenness 303.90 SP Active 186882168 SP Problem Anxiety state, unspecified 300.00 Act rola [id number] SP ALLERGIES No Information ENCOUNTERS Encounter Location Date Diagnosis POS [id number] [place] [address] [id number] 18 2014 Undiagnosed cardiac murmurs 785.2 ; Hype rtension 401.9 and Dizziness of SP cause 780.4 [facility] [address] [facility] [id number] [place] [phone] SP 14 Nov, 2014 SP [facility] [address] [address] SP Nov, SP [facility] [address] [id number] SP Oct, SP [facility] [address] [address] SP Oct, SP [facility] [id number] [place] [address] SP Jul, SP [facility] [address] [id number] SP Jul, SP [facility] [address] [address] SP Jun, SP [facility] [address] [id number] SP Jun, SP [facility] [address] [id number] [address] [place] [phone] SP May, SP [facility] [address] [address] SP May, SP [facility] [address] [id number] [address] [place] [phone] SP May, SP [facility] [address] [id number] SP 16 May, 2014 SP [facility] [address] [id number] [address] [place] [address], [place] [address] SP May, SP [facility] [address] [id number] [address] [place] [address], [place] [address] SP May, SP [facility] [address] [id number] [address] [place] [address], [place] [address] SP May, SP [facility] [address] [id number] [address] [place] [address], [place] [address] SP May, SP [facility] [address] [id number] [address] [place] [address], [place] [address] SP May, SP [facility] [address] [id number] [address] [place] [address], [place] [address] SP May, SP [facility] [address] [id number] [address] [place] [address], [place] [address] SP Jan, SP [facility] [address] [id number] [address] [place] [address], [place] [address] SP Jan, SP [facility] [address] [id number] [address] [place] [address], [place] [address] SP Jan, SP [facility] [address] [id number] [address] [place] [address], [place] [address] SP Jan, SP [facility] [address] [id number] [address] [place] [id number] SP December, SP [facility] [address] [id number] [address] [place] [address], [place] [address] SP December, SP [facility] [address] [id number] [address] [place] [address], [place] [address] SP December, SP [facility] [address] [id number] [address] [place] [address], [place] [address] SP December, SP [facility] [address] [id number] [address] [place] [address], [place] [address] SP December, SP [facility] [address] [id number] [address] [place] [address], [place] [address] SP Nov, SP [facility] [address] [id number] [address] [place] [address], [place] [address] SP Nov, SP [facility] [address] [id number] [address] [place] [address], [place] [address] SP Nov, SP [facility] [address] [id number] [address] [place] [address], [place] [address] SP Nov, SP [facility] [address] [id number] [place] [id number] Nov, SP SP [facility] [address] [id number] [address] [place] [address], [place] [address] SP Nov, SP [facility] [address] [id number] [address] [place] [address], [place] [address] SP Oct, SP [facility] [address] [id number] [address] [place] [address], [place] [address] SP Oct, SP [facility] [address] [id number] [address] [place] [address], [place] [address] SP Oct, SP [facility] [address] [id number] [address] [place] [address], [place] [address] SP Oct, SP [facility] [address] [id number] [address] [place] [address], [place] [address] SP Oct, SP [facility] [address] [id number] [address] [place] [address], [place] [address] SP Oct, SP [facility] [address] [id number] [address] [place] [address], [place] [address] SP Oct, SP [facility] [address] [id number] [address] [place] [address], [place] [address] SP Oct, SP [facility] [address] [id number] [address] [place] [address], [place] [address] SP Oct, SP [facility] [address] [id number] [address] [place] [address], [place] [address] SP Oct, SP [facility] [address] [id number] [address] [place] [address], [place] [address] SP Sep, SP [facility] [address] [id number] [address] [place] [address], [place] [address] SP Sep, SP [facility] [address] [id number] [address] [place] [address], [place] [address] SP Sep, SP [facility] [address] [id number] [address] [place] [address], [place] [address] SP Sep, SP [facility] [address] [id number] [address] [place] [address], [place] [address] SP Sep, SP [facility] [address] [id number] [address] [place] [address], [place] [address] SP Sep, SP [facility] [address] [id number] [address] [place] [address], [place] [address] SP Sep, SP [facility] [address] [facility] [id number] [place] [id number] SP Sep, SP [facility] [address] [id number] [address] [place] [id number] SP Aug, SP [facility] [address] [id number] [address] [place] [id number] SP Aug, SP [facility] [address] [id number] [address] [place] [address], [place] [address] SP Jul, SP [facility] [address] [facility] [id number] [place] [id number] SP Jul, SP [facility] [address] [id number] [address] [place] [id number] SP Jul, SP [facility] [address] [id number] [address] [place] [address], [place] [address] SP Jul, SP [facility] [address] [id number] [address] [place] [address], [place] [address] SP Jul, SP [facility] [address] [id number] [address] [place] [address], [place] [address] SP Jul, SP [facility] [address] [id number] [address] [place] [address], [place] [address] SP Jul, SP [facility] [address] [id number] [address] [place] [address], [place] [address] SP Jul, SP [facility] [address] [id number] [address] [place] [address], [place] [address] SP Jul, SP [facility] [address] [id number] [address] [place] [address], [place] [address] SP Jul, SP [facility] [address] [id number] [address] [place] [address], [place] [address] SP Jul, SP [facility] [address] [id number] [address] [place] [address], [place] [address] SP Jul, SP [facility] [address] [id number] [address] [place] [address], [place] [address] SP Jun, SP [facility] [address] [id number] [address] [place] [id number] SP Jun, SP [facility] [address] [id number] [address] [place] [address], [place] [address] SP May, SP [facility] [address] [id number] [address] [place] [address], [place] [address] SP May, SP [facility] [address] [id number] [address] [place] [address], [place] [address] SP May, SP [facility] [address] [id number] [address] [place] [address], [place] [address] SP May, SP [facility] [address] [id number] [address] [place] [address], [place] [address] SP May, SP [facility] [address] [id number] [address] [place] [address], [place] [address] SP May, SP [facility] [address] [id number] [address] [place] [address], [place] [address] SP May, SP [facility] [address] [id number] [address] [place] [address], [place] [address] SP May, SP [facility] [address] [id number] [address] [place] [address], [place] [address] SP May, SP [facility] [address] [id number] [address] [place] [address], [place] [address] SP May, SP [facility] [address] [id number] [address] [place] [address], [place] [address] SP Apr, SP [facility] [address] [id number] [address] [place] [address], [place] [address] SP Apr, SP [facility] [address] [id number] [address] [place] [address], [place] [address] SP Apr, SP [facility] [address] [id number] [address] [place] [id number] SP Jan, SP [facility] [address] [id number] [address] [place] [address], [place] [address] SP December, SP [facility] [address] [id number] [address] [place] [address], [place] [address] SP December, SP [facility] [address] [id number] [address] [place] [address], [place] [address] SP December, SP [facility] [address] [id number] [address] [place] [address], [place] [address] SP Nov, SP [facility] [address] [id number] [address] [place] [address], [place] [address] SP Oct, SP [facility] [address] [id number] [place] [id number] Oct, SP SP [facility] [address] [id number] [address] [place] [address], [place] [address] SP Oct, SP [facility] [address] [id number] [place] [id number] Sep, SP SP [facility] [address] [id number] [address] [place] [address], [place] [address] SP Sep, SP [facility] [address] [id number] [address] [place] [address], [place] [address] SP Sep, SP [facility] [address] [id number] [address] [place] [address], [place] [address] SP Aug, SP [facility] [address] [id number] [address] [place] [address], [place] [address] SP Aug, SP [facility] [address] [id number] [address] [place] [address], [place] [address] SP Jul, SP [facility] [address] [id number] [address] [place] [address], [place] [address] SP Jul, SP [facility] [address] [id number] [address] [place] [address], [place] [address] SP Jun, SP [facility] [address] [id number] [address] [place] [address], [place] [address] SP Jun, SP [facility] [address] [id number] [address] [place] [address], [place] [address] SP May, SP [facility] [address] [id number] [address] [place] [address], [place] [address] SP May, SP [facility] [address] [id number] [address] [place] [address], [place] [address] SP May, [facility] [address] [facility] [id number] [place] [address] SP May, [facility] [address] [facility] [id number] [place] [address] SP May, [facility] [address] [facility] [id number] [place] [address] SP May, [facility] [address] [facility] [id number] [place] [address] SP May, [facility] [address] [id number] [place], [facility] [id number] Mar, SP [facility] [address] [facility] [id number] [place] [id number] SP December, [facility] [address] [facility] [id number] [place] [address] SP December, SP IMMUNIZATIONS No Known Immunizations SOCIAL HISTORY Never Assessed REASON FOR VISIT [place] [place] VITAL SIGNS MEDICATIONS No [...]
--- OUTSIDE RECORDS SUMMARY | 2019-06-07 03:53 | XMS REPORT ---
Author Author Migration, Doctor POS Organization [facility] [employer] SP Address Unknown SP Phone Unavailable SP Care Team Providers Care Baggage Agent Supervisor Name Role Phone POS Migration, Doctor Unavailable Unavailable SP PROBLEMS Type Condition ICD9-CM Code [id number] Code Onset Dates Condition S tatus SNOMED POS Problem Abdominal pain, generalized 789.07 Ac tive [id number] POS Problem Need for prophylactic vaccination and inoculation, Influen za V04.81 SP [id number] SP Problem Undiagnosed cardiac murmurs 785.2 Ac tive [id number] SP Problem Other dyspnea and respiratory abnormalities 786.09 Active 734189189 SP Problem Edema 782.3 Active 779296131 SP Problem Loss of weight 783.21 Active 34599 5001 SP Problem Alcoholic cirrhosis of liver 571.2 A ctive 146702567 SP Problem Counseling on substance use and abuse V65.42 Active 849724711 SP Problem Unspecified sleep disturbance 780.50 Active 15947486 SP Problem Chronic airway obstruction, not elsewhere classified 496 Active SP Problem Obstructive chronic bronchitis, with (acute) exacerbation 491.21 SP [id number] SP Problem Unspecified gastritis and ga stroduodenitis without mention of hemorrhage SP 535.50 Active 853803987 SP Problem Other and unspecified hyperlipidemia 272.4 Active 62806012 SP Problem Unspecified dental caries 521.00 Acti ve 44516538 SP Problem Unspecified follow-up examination V67.9 Active 901319125 SP Problem Herpes simplex without mention of complication 054.9 Active SP Problem Incisional hernia without mention of obstruction or gangre ne 553.21 SP 494394067 SP Problem Personal history of noncompl iance with medical treatment, presenting SP to health V15.81 Active 039259663 SP Problem STATE HEP A (ADULT) DX V05.3 Active 494155877 SP Problem Acute bronchitis 466.0 Active 105 53155 SP Problem Hypertensive chronic kidney disease, unspecified, with chronic kidney SP stage I through stage IV, or unspecified 403.90 Active 33988014 SP Problem Other and unspecified alcohol dependence , unspecified drunkenness 303.90 SP Active 254016789 SP Problem Anxiety state, unspecified 300.00 Act rola [id number] SP ALLERGIES No Information ENCOUNTERS Encounter Location Date Diagnosis POS [id number] [place] [address] [id number] 18 2014 Undiagnosed cardiac murmurs 785.2 ; Hype rtension 401.9 and Dizziness of SP cause 780.4 [facility] [address] [facility] [id number] [address] [place] [phone] SP 14 Nov, 2014 SP [facility] [address] [address] SP Nov, SP [facility] [address] [address] SP Oct, SP [facility] [address] [address] SP Oct, SP [facility] [address] [place] [id number] [place] [address] SP Jul, SP [facility] [address] [id number] SP Jul, SP [facility] [address] [address] SP Jun, SP [facility] [address] [address] SP Jun, SP [facility] [address] [place] [id number] [address] [place] [address] SP May, SP [facility] [address] [address] SP May, SP [facility] [address] [place] [id number] [address] [place] [address] SP May, SP [facility] [address] [address] SP 16 May, 2014 SP [facility] [address] [id number] [address] [place] [address], [place] [address] SP May, SP [facility] [address] [id number] [address] [place] [address], [place] [address] SP May, SP [facility] [address] [id number] [address] [place] [address], [place] [address] SP May, SP [facility] [address] [id number] [address] [place] [address], [place] [address] SP May, SP [facility] [address] [id number] [address] [place] [address], [place] [address] SP May, SP [facility] [address] [id number] [address] [place] [address], [place] [address] SP May, SP [facility] [address] [id number] [address] [place] [address], [place] [address] SP Jan, SP [facility] [address] [id number] [address] [place] [address], [place] [address] SP Jan, SP [facility] [address] [id number] [address] [place] [address], [place] [address] SP Jan, SP [facility] [address] [id number] [address] [place] [address], [place] [address] SP Jan, SP [facility] [address] [id number] [address] [place] [address] SP December, SP [facility] [address] [id number] [address] [place] [address], [place] [address] SP December, SP [facility] [address] [id number] [address] [place] [address], [place] [address] SP December, SP [facility] [address] [id number] [address] [place] [address], [place] [address] SP December, SP [facility] [address] [id number] [address] [place] [address], [place] [address] SP December, SP [facility] [address] [id number] [address] [place] [address], [place] [address] SP Nov, SP [facility] [address] [id number] [address] [place] [address], [place] [address] SP Nov, SP [facility] [address] [id number] [address] [place] [address], [place] [address] SP Nov, SP [facility] [address] [id number] [address] [place] [address], [place] [address] SP Nov, SP [facility] [address] [id number] [place] [id number] Nov, SP SP [facility] [address] [id number] [address] [place] [address], [place] [address] SP Nov, SP [facility] [address] [id number] [address] [place] [address], [place] [address] SP Oct, SP [facility] [address] [id number] [address] [place] [address], [place] [address] SP Oct, SP [facility] [address] [id number] [address] [place] [address], [place] [address] SP Oct, SP [facility] [address] [id number] [address] [place] [address], [place] [address] SP Oct, SP [facility] [address] [id number] [address] [place] [address], [place] [address] SP Oct, SP [facility] [address] [id number] [address] [place] [address], [place] [address] SP Oct, SP [facility] [address] [id number] [address] [place] [address], [place] [address] SP Oct, SP [facility] [address] [id number] [address] [place] [address], [place] [address] SP Oct, SP [facility] [address] [id number] [address] [place] [address], [place] [address] SP Oct, SP [facility] [address] [id number] [address] [place] [address], [place] [address] SP Oct, SP [facility] [address] [id number] [address] [place] [address], [place] [address] SP Sep, SP [facility] [address] [id number] [address] [place] [address], [place] [address] SP Sep, SP [facility] [address] [id number] [address] [place] [address], [place] [address] SP Sep, SP [facility] [address] [id number] [address] [place] [address], [place] [address] SP Sep, SP [facility] [address] [id number] [address] [place] [address], [place] [address] SP Sep, SP [facility] [address] [id number] [address] [place] [address], [place] [address] SP Sep, SP [facility] [address] [id number] [address] [place] [address], [place] [address] SP Sep, SP [facility] [address] [facility] [id number] [address] [place] [address] SP Sep, SP [facility] [address] [id number] [address] [place] [address] SP Aug, SP [facility] [address] [id number] [address] [place] [address] SP Aug, SP [facility] [address] [id number] [address] [place] [address], [place] [address] SP Jul, SP [facility] [address] [facility] [id number] [address] [place] [address] SP Jul, SP [facility] [address] [id number] [address] [place] [address] SP Jul, SP [facility] [address] [id number] [address] [place] [address], [place] [address] SP Jul, SP [facility] [address] [id number] [address] [place] [address], [place] [address] SP Jul, SP [facility] [address] [id number] [address] [place] [address], [place] [address] SP Jul, SP [facility] [address] [id number] [address] [place] [address], [place] [address] SP Jul, SP [facility] [address] [id number] [address] [place] [address], [place] [address] SP Jul, SP [facility] [address] [id number] [address] [place] [address], [place] [address] SP Jul, SP [facility] [address] [id number] [address] [place] [address], [place] [address] SP Jul, SP [facility] [address] [id number] [address] [place] [address], [place] [address] SP Jul, SP [facility] [address] [id number] [address] [place] [address], [place] [address] SP Jul, SP [facility] [address] [id number] [address] [place] [address], [place] [address] SP Jun, SP [facility] [address] [id number] [address] [place] [address] SP Jun, SP [facility] [address] [id number] [address] [place] [address], [place] [address] SP May, SP [facility] [address] [id number] [address] [place] [address], [place] [address] SP May, SP [facility] [address] [id number] [address] [place] [address], [place] [address] SP May, SP [facility] [address] [id number] [address] [place] [address], [place] [address] SP May, SP [facility] [address] [id number] [address] [place] [address], [place] [address] SP May, SP [facility] [address] [id number] [address] [place] [address], [place] [address] SP May, SP [facility] [address] [id number] [address] [place] [address], [place] [address] SP May, SP [facility] [address] [id number] [address] [place] [address], [place] [address] SP May, SP [facility] [address] [id number] [address] [place] [address], [place] [address] SP May, SP [facility] [address] [id number] [address] [place] [address], [place] [address] SP May, SP [facility] [address] [id number] [address] [place] [address], [place] [address] SP Apr, SP [facility] [address] [id number] [address] [place] [address], [place] [address] SP Apr, SP [facility] [address] [id number] [address] [place] [address], [place] [address] SP Apr, SP [facility] [address] [id number] [address] [place] [address] SP Jan, SP [facility] [address] [id number] [address] [place] [address], [place] [address] SP December, SP [facility] [address] [id number] [address] [place] [address], [place] [address] SP December, SP [facility] [address] [id number] [address] [place] [address], [place] [address] SP December, SP [facility] [address] [id number] [address] [place] [address], [place] [address] SP Nov, SP [facility] [address] [id number] [address] [place] [address], [place] [address] SP Oct, SP [facility] [address] [id number] [place] [id number] Oct, SP SP [facility] [address] [id number] [address] [place] [address], [place] [address] SP Oct, SP [facility] [address] [id number] [place] [id number] Sep, SP SP [facility] [address] [id number] [address] [place] [address], [place] [address] SP Sep, SP [facility] [address] [id number] [address] [place] [address], [place] [address] SP Sep, SP [facility] [address] [id number] [address] [place] [address], [place] [address] SP Aug, SP [facility] [address] [id number] [address] [place] [address], [place] [address] SP Aug, SP [facility] [address] [id number] [address] [place] [address], [place] [address] SP Jul, SP [facility] [address] [id number] [address] [place] [address], [place] [address] SP Jul, SP [facility] [address] [id number] [address] [place] [address], [place] [address] SP Jun, SP [facility] [address] [id number] [address] [place] [address], [place] [address] SP Jun, SP [facility] [address] [id number] [address] [place] [address], [place] [address] SP May, SP [facility] [address] [id number] [address] [place] [address], [place] [address] SP May, SP [facility] [address] [id number] [address] [place] [address], [place] [address] SP May, [facility] [address] [facility] [id number] [address] [place] [address] SP May, [facility] [address] [facility] [id number] [address] [place] [address] SP May, [facility] [address] [facility] [id number] [address] [place] [address] SP May, [facility] [address] [facility] [id number] [address] [place] [address] SP May, [facility] [address] [id number] [place], [facility] [id number] Mar, SP [facility] [address] [facility] [id number] [address] [place] [address] SP December, [facility] [address] [facility] [id number] [address] [place] [address] SP December, SP IMMUNIZATIONS No Known Immunizations SOCIAL HISTORY Never Assessed REASON FOR VISIT EMR-[facility] [place] PLAN OF CARE VITAL SIGNS MEDICATIONS No [...]
--- NOTE | 2019-06-20 14:18 | OPERATIVE REPORT ---
DATE OF SERVICE: 05/25/2019 SERVICE: Oral maxillofacial surgery PREOPERATIVE DIAGNOSES: Grossly carious and nonfunctional teeth numbers 3, 4, 5, 6, 7, 8, 9, 10, 11, 12, 13, 14, 17, 18, 19, 20, 21, 22, 23, 24, 25, 26. SURGEON: Yessenia Dale DDS. STRIPER MACHINE: Ryann Zazueta. ANESTHESIA: General endotracheal. COMPLICATIONS: There were no complications. BLOOD LOSS: Minimal. FLUIDS: 1400 mL of crystalloid. COUNTS: Instrument, needle and sponge count were correct x2. HISTORY OF PRESENT ILLNESS AND INDICATIONS FOR PROCEDURE: The patient out is a 59-year-old patient with multiple medical histories including coronary artery disease, chronic obstructive pulmonary disease, and also major depressive disorders. She has stenosis of the carotid and numerous other medical conditions. Subsequently, she is not a candidate for surgery in an office setting. Subsequently, after speaking with both Dr. Michaud and Dr. García, it was determined she would best be served by having this procedure performed at [facility]. DESCRIPTION OF PROCEDURE: The patient was taken to the operating room and placed on the operating table. The appropriate monitors were placed and anesthesia was induced via nasotracheal intubation without difficulty. Once this was secured, the surgeon left the room, scrubbed, returned, donned sterile gowns and gloves and prepped and draped the patient in the usual standard and sterile fashion. After this, we deposited local anesthesia and with maxillary infiltration as well as bilateral mandibular blocks. After this, an immediate full thickness mucoperiosteal incision around the maxillary teeth with a 15 blade, this was elevated and the teeth were luxated with the #301 elevator and then removed in their entirety. After this, any rough or irregular surfaces were removed with bony projections and removed with a rongeur and a then bone file was used to smooth any rough or irregular surfaces. After this, we turned our attention to the mandible after elevating a full thickness mucoperiosteal flap, I was able to identify tooth #17, which was a full bony impaction. We then removed an interfering bone and section the tooth and removed without difficulty. The neurovascular bundle was not visualized. There was no excessive hemorrhage. I then completed the mandibular odontectomy by elevating the remaining mandibular teeth with a 301 elevator and removed them with a lower Nooksack forceps. After this, I removed any rough or irregular surfaces with a bone file. We then copiously irrigated with normal saline and then closed the incisions with 3-0 chromic gut in a running and interrupted fashion. This completed our procedure. She was allowed to emerge from her general anesthetic. She was then extubated after breathing spontaneously and then transported to the recovery room where she was assessed to have stable vital signs, breathing spontaneously with a pulse ox of 99%. Job ID: [id number] DocumentID: [id number] Dictated Date: 06/20/2019 11:25:22 Division Human Resources Manager Date: 06/20/2019 14:17:36 Dictated By: YESSENIA DALE DDS
== END 2019-05-26 15:45 ==
LOC: SDC 11:16 → 4TH 17:40 → SDC 05-26 15:45
PROVIDERS: ATTEND Specialist
DX: K02.9 Dental caries, unspecified (principal); Z11.2 Encounter for screening for other bacterial diseases; J44.9 Chronic obstructive pulmonary disease, unspecified; I11.0 Hypertensive heart disease with heart failure; I50.9 Heart failure, unspecified; F32.9 Major depressive disorder, single episode, unspecified; F41.9 Anxiety disorder, unspecified; K21.9 Gastro-esophageal reflux disease without esophagitis; I25.10 Atherosclerotic heart disease of native coronary artery without angina pectoris; I73.9 Peripheral vascular disease, unspecified; Z86.73 Personal history of transient ischemic attack (TIA), and cerebral infarction without residual deficits; Z79.899 Other long term (current) drug therapy; Z88.5 Allergy status to narcotic agent
CPT/HCPCS: 87081; 94760; 94799

== ENCOUNTER → 2019-08-15 | Outpatient (CLI) | payer MEDICARE, MEDICAID ==
[~2019-08-15] MED LIST changes: +OMEP-280 PEG; -OMEP20CA13 PEG
== END ==
LOC: CARD 09:02
PROVIDERS: ATTEND Physician Assistant
DX: I35.1 Nonrheumatic aortic (valve) insufficiency (principal); I25.10 Atherosclerotic heart disease of native coronary artery without angina pectoris; J44.9 Chronic obstructive pulmonary disease, unspecified; I10 Essential (primary) hypertension; E78.2 Mixed hyperlipidemia
CPT/HCPCS: 93306

== ENCOUNTER 2020-07-13 04:21 | Inpatient (IN) | payer MEDICARE, MEDICAID ==
[~2020-07-13] VITALS: Ht 152 cm; Wt 55.2 kg
[~2020-07-13 04:21] MED LIST changes: +AMLO-251 PEG; -AMLO10TA7 PEG; -DEXT1DRO7 OP; +DEXT1DRO7 OU; -HYDR-3816 PEG; -OMEP-280 PEG; +OMEP20CA18 PEG
[2020-07-13] MEDS ORDERED: ACETAMINOPHEN 650 MG SUPP (TYLENOL) PR ONE (05:30)
[2020-07-13 05:34] LABS: BASOPHILS % (AUTO) 0 % (0-10); EOSINOPHILS % (AUTO) 0 % (0-10); MONOCYTES % (AUTO) 13 % (0-12)
[2020-07-13 05:36] LABS: HEMATOCRIT 31 % (35-52); HEMOGLOBIN 10.3 g/dL (11.5-16.0); LYMPHOCYTES # (AUTO) 0.6 10^3/uL (1.0-4.0); LYMPHOCYTES % (AUTO) 21 % (12-44); MEAN CORPUSCULAR HEMOGLOBIN 31 pg (25-34); MEAN CORPUSCULAR HGB CONC 33 g/dL (32-36); MEAN CORPUSCULAR VOLUME 93 fL (80-99); MONOCYTES # (AUTO) 0.3 10^3/uL (0.0-1.0); NEUTROPHILS # (AUTO) 1.7 10^3/uL (1.8-7.8); NEUTROPHILS % (AUTO) 65 % (42-75); WHITE BLOOD COUNT 2.6 10^3/uL (4.3-11.0)
[2020-07-13 05:37] LABS: PLATELET COUNT 88 10^3/uL (130-400)
[2020-07-13 05:44] LABS: INR 0.9 (0.8-1.4); PROTHROMBIN TIME PATIENT 12.5 SEC (12.2-14.7)
[2020-07-13 05:45] LABS: ALBUMIN 3.2 GM/DL (3.2-4.5)
[2020-07-13 05:46] LABS: CALCIUM 7.9 MG/DL (8.5-10.1)
[2020-07-13 05:48] LABS: TOTAL PROTEIN 6.7 GM/DL (6.4-8.2)
[2020-07-13 05:49] LABS: BILIRUBIN,TOTAL 0.3 MG/DL (0.1-1.0)
[2020-07-13 05:51] LABS: CREATININE SERUM 1.7 MG/DL (0.60-1.30)
[2020-07-13] MEDS ORDERED: LACTATED RINGERS 1,000 ML IV ONE (06:30)
[2020-07-13] MEDS: RT-ALBUTEROL INHALER HFA (VENTOLIN HFA) 18 GM IH SCH ×6 (06:35→22:52)
--- NOTE | 2020-07-13 07:35 | NUR ---
temp 101.8ax
--- NOTE | 2020-07-13 07:40 | Diagnostic Imaging Report ---
EXAMINATION: Chest radiograph, portable AP view. DATE: 07/13/2020 7:33 AM INDICATION: 60-year-old female, cough, hemoptysis. COMPARISON: April 24, 2017. FINDINGS: There is a tracheostomy tube. Stable overall appearance of the cardiomediastinal silhouette. There is no identified pneumothorax. There are limitations of the exam relating to patient positioning. IMPRESSION: 1. Limitations of the exam relating to patient positioning. This particularly limits assessment of the left mid to lower lung. Consider repeat imaging. 2. The right lung appears grossly clear. Dictated by: Dictated on workstation # [id number]
[2020-07-13 07:51] LABS: BILIRUBIN,URINE NEGATIVE (NEGATIVE); CLARITY,URINE CLEAR; COLOR,URINE YELLOW; GLUCOSE, URINE (UA) NEGATIVE (NEGATIVE); KETONES,URINE NEGATIVE (NEGATIVE); LEUKOCYTE ESTERASE ,URINE NEGATIVE (NEGATIVE); NITRITE,URINE NEGATIVE (NEGATIVE); PH,URINE 5.5 (5-9); PROTEIN,URINE 1+ (NEGATIVE)
[2020-07-13 08:04] LABS: BACTERIA,URINE FEW /HPF
[2020-07-13 08:05] LABS: AMORPHOUS SEDIMENT,UR FEW AMOR URATES /LPF
--- NOTE | 2020-07-13 08:18 | ED General ---
General Chief Complaint: Respiratory Problems Stated Complaint: COVID Source of Information: Patient, Caregiver, EMS, Half-Way Records Exam Limitations: Physical Impairments History of Present Illness Date Seen by Provider: Jul 13, 2020 Time Seen by Provider: 04:21 Initial Comments This 60-year-old woman who is a resident of [facility] is brought to the emergency room via EMS with chief complaint of hemoptysis from her tracheostomy. She is Covid positive.She was just diagnosed within the last week. She receives oxygen supplementation and humidified air via a tracheostomy tent at the detention. Her oxygen normally runs at about 2 L. She has copious secretions today and requires suctioning for clearing those. Oxygen saturations are variable and sometimes are around 90 Percent even with blow-by oxygen. Patient has chronic debility from stroke which include spastic paralysis of the left side, dysphagia, and aphasia. Her power of assistant district attorney, She kristy Rios,Believes she is able to understand most of what is said. Her paperwork and her power of assistant district attorney states she is to be a full code. Power of assistant district attorney is Sandra Rios at [phone] Allergies and Home Medications Allergies Coded Allergies: morphine (Unverified Allergy, Unknown, 07/13/20) Home Medications Acetaminophen 325 Mg Tablet, 650 MG PEG Q4H PRN for HEADACHE, (Reported) Amlodipine Besylate 10 Mg Tablet, 10 MG PEG DAILY, (Reported) HOLD AND NOTIFY PHYSICIAN FOR SBP <100 AND HR <60 Dextran 70/Hypromellose 1 Each Droperette, 2 DROPS OP TID, (Reported) Diphenhydramine HCl 25 Mg Capsule, 25 MG PEG Q4H PRN for RASH, (Reported) Duloxetine HCl 30 Mg Capsule.dr, 30 MG PEG DAILY, (Reported) Enoxaparin Sodium 40 Mg/0.4 Ml Syringe, 40 MG SQ DAILY, (Reported) Hydrocodone Bit/Acetaminophen 1 Each Tablet, 1 TAB PEG BID, (Reported) Hyoscyamine Sulfate 0.125 Mg Tab.subl, 0.125 MG SL Q4H PRN for SECRETIONS, (Reported) Lactobacillus Acidophilus 1 Each Capsule, 1 CAP PEG DAILY, (Reported) Levothyroxine Sodium 150 Mcg Tablet, 150 MCG PEG DAILY, (Reported) Loratadine 10 Mg Capsule, 10 MG PEG DAILY, (Reported) Neomycin Huizar/Bacitrac Zn/Poly 28.3 Gm Oint...g., TP DAILY, (Reported) APPLY TO AROUND PEG TUBE DAILY FOR REDNESS UNTIL HEALED Omeprazole 20 Mg Capsule.dr, 20 MG PEG DAILY, (Reported) Ondansetron HCl 4 Mg Tab, 4 MG PEG Q6H PRN for NAUSEA/VOMITING, (Reported) Patient Home Medication List Home Medication List Reviewed: Yes Review of Systems Review of Systems Constitutional: fever EENTM: see HPI Respiratory: see HPI Cardiovascular: no symptoms reported Gastrointestinal: no symptoms reported Genitourinary: no symptoms reported : No Musculoskeletal: see HPI Skin: no symptoms reported Psychiatric/Neurological: See HPI Hematologic/Lymphatic: No Symptoms Reported Immunological/Allergic: no symptoms reported Past Wtzrgom-Fhtkfg-Ngxsbq Hx Past Med/Social Hx: Reviewed Nursing Past Med/Soc Hx Patient Social History Alcohol Use: Denies Use Recreational Drug Use: No Smoking Status: Never a Smoker 2nd Hand Smoke Exposure: No Recent Hopitalizations: No Seasonal Allergies Seasonal Allergies: No Past Medical History Surgeries: Yes Bowel Surgery, Tracheostomy Respiratory: No (TRACH) Asthma, COPD Currently Using CPAP: No Currently Using BIPAP: No Cardiac: Yes Coronary Artery Disease, Hypertension, Peripheral Vascular Neurological: Yes Stroke Sexually Transmitted Disease: No HIV/AIDS: No Genitourinary: No Gastrointestinal: Yes (PEG TUBE) Gastroesophageal Reflux Musculoskeletal: Yes Contracture Endocrine: Yes Hypothyroidsim HEENT: No Cancer: No Psychosocial: Yes Anxiety, Depression Integumentary: No Blood Disorders: No Family Medical History Patient reports no known family medical history. Unable to obtain due to clinical condition Physical Exam-Suspected Sepsis Physical Exam Vital Signs Vital Signs - First Documented 07/13/20 04:25 Temp 38.9 Pulse 90 Resp 36 B/P (MAP) 111/56 (74) Pulse Ox 91 O2 Delivery Trach Collar O2 Flow Rate 10.00 Capillary Refill : Height, Weight, BMI Height: 5'0.00" Weight: 136lbs. 9.6oz. 61.388441pi; 26.04 BMI Method:Estimated General Appearance: No Apparent Distress, WD/WN HEENT: PERRL/EOMI, Normal ENT Inspection, Other (Mucous membranes moist) Neck: Normal Inspection; No JVD Respiratory: Crackles, Rhonci, Wheezing Cardiovascular: Regular Rate, Rhythm, No Edema, No Murmur Gastrointestinal: Normal Bowel Sounds, Non Tender, Soft Extremity: Normal Inspection, No Pedal Edema Neurologic/Psychiatric: Alert, Normal Mood/Affect, Other (Spastic paralysis of the left side) Skin: normal color, warm/dry Focused Exam Lactate Level 07/13/20 04:50: Lactic Acid Level 2.32*H 07/13/20 07:02: Lactic Acid Level 0.87 Lactic Acid Level Laboratory Tests Test 07/13/20 07:02 Lactic Acid Level 0.87 MMOL/L (0.50-2.00) Progress/Results/Core Measures Suspected Sepsis SIRS Temperature: Pulse: Respiratory Rate: Laboratory Tests 07/13/20 04:50: White Blood Count 2.6L Blood Pressure / Mean: 07/13/20 04:50: Lactic Acid Level 2.32*H 07/13/20 07:02: Lactic Acid Level 0.87 Laboratory Tests 07/13/20 04:50: Creatinine 1.70H, INR Comment 0.9, Platelet Count 88L, Total Bilirubin 0.3 Results/Orders Lab Results Laboratory Tests Test 07/13/20 04:50 07/13/20 07:02 07/13/20 07:43 Range/Units White Blood Count 2.6 L 4.3-11.0 10^3/uL Red Blood Count 3.33 L 3.80-5.11 10^6/uL Hemoglobin 10.3 L 11.5-16.0 g/dL Hematocrit 31 L 35-52 % Mean Corpuscular Volume 93 80-99 fL Mean Corpuscular Hemoglobin 31 25-34 pg Mean Corpuscular Hemoglobin Concent 33 32-36 g/dL Red Cell Distribution Width 13.9 10.0-14.5 % Platelet Count 88 L 130-400 10^3/uL Mean Platelet Volume 13.0 H 9.0-12.2 fL Immature Granulocyte % (Auto) 1 % Neutrophils (%) (Auto) 65 42-75 % Lymphocytes (%) (Auto) 21 12-44 % Monocytes (%) (Auto) 13 H 0-12 % Eosinophils (%) (Auto) 0 0-10 % Basophils (%) (Auto) 0 0-10 % Neutrophils # (Auto) 1.7 L 1.8-7.8 10^3/uL Lymphocytes # (Auto) 0.6 L 1.0-4.0 10^3/uL Monocytes # (Auto) 0.3 0.0-1.0 10^3/uL Eosinophils # (Auto) 0.0 0.0-0.3 10^3/uL Basophils # (Auto) 0.0 0.0-0.1 10^3/uL Immature Granulocyte # (Auto) 0.0 0.0-0.1 10^3/uL Prothrombin Time 12.5 12.2-14.7 SEC INR Comment 0.9 0.8-1.4 Activated Partial Thromboplast Time 21 L 24-35 SEC Sodium Level 131 L 135-145 MMOL/L Potassium Level 4.0 3.6-5.0 MMOL/L Chloride Level 96 L 98-107 MMOL/L Carbon Dioxide Level 23 21-32 MMOL/L Anion Gap 12 5-14 MMOL/L Blood Urea Nitrogen 57 H 7-18 MG/DL Creatinine 1.70 H 0.60-1.30 MG/DL Estimat Glomerular Filtration Rate 31 BUN/Creatinine Ratio 34 Glucose Level 102 70-105 MG/DL Lactic Acid Level 2.32 *H 0.87 0.50-2.00 MMOL/L Calcium Level 7.9 L 8.5-10.1 MG/DL Corrected Calcium 8.5 8.5-10.1 MG/DL Total Bilirubin 0.3 0.1-1.0 MG/DL Aspartate Amino Transf (AST/SGOT) 72 H 5-34 U/L Alanine Aminotransferase (ALT/SGPT) 38 0-55 U/L Alkaline Phosphatase 91 40-136 U/L Lactate Dehydrogenase 324 H 125-220 U/L C-Reactive Protein High Sensitivity 4.22 H 0.00-0.50 MG/DL Total Protein 6.7 6.4-8.2 GM/DL Albumin 3.2 3.2-4.5 GM/DL Procalcitonin 0.22 H <0.10 NG/ML Urine Color YELLOW Urine Clarity CLEAR Urine pH 5.5 5-9 Urine Specific [place] 1.010 L 1.016-1.022 Urine Protein 1+ H NEGATIVE Urine Glucose (UA) NEGATIVE NEGATIVE Urine Ketones NEGATIVE NEGATIVE Urine Nitrite NEGATIVE NEGATIVE Urine Bilirubin NEGATIVE NEGATIVE Urine Urobilinogen 0.2 < = 1.0 MG/DL Urine Leukocyte Esterase NEGATIVE NEGATIVE Urine RBC (Auto) NEGATIVE NEGATIVE Urine RBC NONE /HPF Urine WBC NONE /HPF Urine Crystals PRESENT H /LPF Urine Amorphous Sediment FEW [place] URATES H /LPF Urine Bacteria FEW H /HPF Urine Casts NONE /LPF Urine Mucus NEGATIVE /LPF Urine Culture Indicated CULTURE PENDING My Orders Orders - DINA CLAUDIO MD Cbc With Automated Diff (07/13/20 04:43) Comprehensive Metabolic Panel (07/13/20 04:43) Hs C Reactive Protein (07/13/20 04:43) Albuterol Inhaler (Ventolin Hfa) (07/13/20 06:00) Ed Iv/Invasive Line Start (07/13/20 04:43) Chest 1 View, Ap/Pa Only (07/13/20 04:43) Blood Culture (07/13/20 05:28) Sputum Culture (07/13/20 05:28) Urinalysis (07/13/20 05:28) Urine Culture (07/13/20 05:28) Protime With Inr (07/13/20 05:28) Partial Thromboplastin Time (07/13/20 05:28) Vital Signs Adult Sepsis Patie Q15M (07/13/20 05:28) O2 (07/13/20 05:28) Remove Rings In Anticipation O (07/13/20 05:28) Lactic Acid Analyzer (07/13/20 05:28) Acetaminophen Suppository (Tylenol Suppo (07/13/20 05:30) Lactated Ringers (Lr 1000 Ml Iv Solution (07/13/20 06:30) Procalcitonin (Pct) (07/13/20 06:28) LDH (07/13/20 06:28) Dexamethasone Injection (Decadron Inje (07/13/20 08:00) Cefepime Injection (Maxipime Injection) (07/13/20 08:45) Ketorolac Injection (Toradol Injection) (07/13/20 08:45) Medications Given in ED Current Medications Medications Dose Ordered Sig/Magalys Route Start Time Stop Time Status Last Admin Dose Admin Acetaminophen 650 mg ONCE ONCE ID 07/13/20 05:30 12 05:32 DC 07/13/20 06:35 650 MG Dexamethasone Sodium Phosphate 6 mg ONCE ONCE IV 07/13/20 08:00 07/13/20 08:01 DC 07/13/20 08:57 6 MG Lactated Ringer's 1,000 ml @ 0 mls/hr Q0M ONCE IV 07/13/20 06:30 07/13/20 06:31 DC 07/13/20 07:04 0 MLS/HR Vital Signs/I&O 07/13/20 07/13/20 07/13/20 04:25 06:07 06:35 Temp 38.9 38.4 Pulse 90 Resp 36 B/P (MAP) 111/56 (74) Pulse Ox 91 95 O2 Delivery Trach Collar Simple Mask O2 Flow Rate 10.00 5.00 Capillary Refill : Progress Note : Progress Note DiscussedPatient received IV fluids and septic work-up was pursued. Due to the extreme amount of support patient needed with frequent suctioning, admission to the ICU was felt appropriate. Case with Dr. Paredes who recommended Dexamethasone, Rocephin, A azithromycin,Convalescent plasma, and remdesivir. Diagnostic Imaging Diagonstic Imaging: Xray Plain Films/CT/US/NM/MRI: chest Comments Chest x-ray viewed by me and report reviewed. See report below: NAME: FLORENCIO MCINTYRE [facility] REC#: [id number] PT STATUS: REG ER : 1960 PHYSICIAN: DINA CLAUDIO MD ADMIT DATE: 07/13/20/ER Signed Date of Exam:07/13/20 CHEST 1 VIEW, AP/PA ONLY EXAMINATION: Chest radiograph, portable AP view. DATE: 07/13/2020 7:33 AM INDICATION: 60-year-old female, cough, hemoptysis. COMPARISON: April 24, 2017. FINDINGS: There is a tracheostomy tube. Stable overall appearance of the cardiomediastinal silhouette. There is no identified pneumothorax. There are limitations of the exam relating to patient positioning. IMPRESSION: 1. Limitations of the exam relating to patient positioning. This particularly limits assessment of the left mid to lower lung. Consider repeat imaging. 2. The right lung appears grossly clear. Dictated by: Dictated on workstation # [id number] Dict: 07/13/20 0736 Trans: 07/13/20 0817 [facility] [id number] Interpreted by: NESSA CORDERO MD Electronically signed by: NESSA CORDERO MD 07/13/20 0817 Departure Communication (Admissions) Time/Spoke to Admitting Phy: 08:00 Dr. Paredes Time/Spoke to Consulting Phy: 08:12 Dr. Epstein Impression Primary Impression: COVID-19 Additional Impressions: Respiratory failure Qualified Codes: J96.21 - Acute and chronic respiratory failure with hypoxia Hypoxia Pancytopenia Increased tracheal secretions Hemoptysis Disposition: ADMITTED INPATIENT Condition: Improved Admissions Decision to Admit Reason: Admit from ER (General) Decision to Admit/Date: Jul 13, 2020 Time/Decision to Admit Time: 07:30 Departure-Patient Inst. Referrals: LETY MCDANIEL MD (PCP) Primary Care Physician DINA CLAUDIO MD Jul 13, 2020 08:18
[2020-07-13] MEDS ORDERED: CEFEPIME INJECTION 1,000 MG in WATER (STERILE) FOR INJECTION 10 ML IV ONE (08:45)
[2020-07-13] MEDS ORDERED: KETOROLAC 30 MG/ML VIAL IVP ONE (08:45)
--- NOTE | 2020-07-13 09:05 | NUR ---
IV L HAND OUT.
--- NOTE | 2020-07-13 09:13 | NUR ---
temp 101.3 ax
--- NOTE | 2020-07-13 10:30 | NUR ---
PT CONT TO HAVE COPIOUS AMOUNTS OF CLEAR SPUTUM SUCTIONED FROM TRACH.
[2020-07-13] MEDS ORDERED: PHARMACY TO DOSE IV SCH (11:00)
[2020-07-13] MEDS ORDERED: PIPERACILLIN/TAZOBACTAM (BULK) 4.5 GM in NS (IVPB) 100 ML IV SCH (11:00)
--- NOTE | 2020-07-13 11:09 | Pulmonary Consultation ---
History of Present Illness History of Present Illness Date Seen by Provider: Jul 13, 2020 Date of Admission Allergies and Home Medications Allergies Coded Allergies: morphine (Unverified Allergy, Unknown, 07/13/20) Home Medications Acetaminophen 325 Mg Tablet, 650 MG PEG Q4H PRN for HEADACHE, (Reported) Amlodipine Besylate 10 Mg Tablet, 10 MG PEG DAILY, (Reported) HOLD AND NOTIFY PHYSICIAN FOR SBP <100 AND HR <60 Dextran 70/Hypromellose 1 Each Droperette, 2 DROPS OP TID, (Reported) Diphenhydramine HCl 25 Mg Capsule, 25 MG PEG Q4H PRN for RASH, (Reported) Duloxetine HCl 30 Mg Capsule.dr, 30 MG PEG DAILY, (Reported) Enoxaparin Sodium 40 Mg/0.4 Ml Syringe, 40 MG SQ DAILY, (Reported) Hydrocodone Bit/Acetaminophen 1 Each Tablet, 1 TAB PEG BID, (Reported) Hyoscyamine Sulfate 0.125 Mg Tab.subl, 0.125 MG SL Q4H PRN for SECRETIONS, (Reported) Lactobacillus Acidophilus 1 Each Capsule, 1 CAP PEG DAILY, (Reported) Levothyroxine Sodium 150 Mcg Tablet, 150 MCG PEG DAILY, (Reported) Loratadine 10 Mg Capsule, 10 MG PEG DAILY, (Reported) Neomycin Huizar/Bacitrac Zn/Poly 28.3 Gm Oint...g., TP DAILY, (Reported) APPLY TO AROUND PEG TUBE DAILY FOR REDNESS UNTIL HEALED Omeprazole 20 Mg Capsule.dr, 20 MG PEG DAILY, (Reported) Ondansetron HCl 4 Mg Tab, 4 MG PEG Q6H PRN for NAUSEA/VOMITING, (Reported) Past Ykjxjwq-Ewjpzs-Iafyja Hx Past Med/Social Hx: Reviewed Nursing Past Med/Soc Hx Patient Social History Alcohol Use: Denies Use Recreational Drug Use: No Smoking Status: Never a Smoker 2nd Hand Smoke Exposure: No Recent Foreign Travel: No Contact w/Someone Who Travel: No Recent Infectious Disease Expo: No Recent Hopitalizations: No Seasonal Allergies Seasonal Allergies: No Past Medical History Surgeries: Yes Bowel Surgery, Tracheostomy Respiratory: No (TRACH) Asthma, COPD Currently Using CPAP: No Currently Using BIPAP: No Cardiac: Yes Coronary Artery Disease, Hypertension, Peripheral Vascular Neurological: Yes Stroke Sexually Transmitted Disease: No HIV/AIDS: No Genitourinary: No Gastrointestinal: Yes (PEG TUBE) Gastroesophageal Reflux Musculoskeletal: Yes Contracture Endocrine: Yes Hypothyroidsim HEENT: No Cancer: No Psychosocial: Yes Anxiety, Depression Integumentary: No Blood Disorders: No Family Medical History Patient reports no known family medical history. Unable to obtain due to clinical condition Sepsis Event Evaluation Height, Weight, BMI Height: 5'0.00" Weight: 136lbs. 9.6oz. 61.507939rk; 15.00 BMI Method:Estimated Exam Exam Vital Signs Date Time Temp Pulse Resp B/P (MAP) Pulse Ox O2 Delivery O2 Flow Rate FiO2 07/13/20 06:35 38.4 07/13/20 06:07 95 Simple Mask 5.00 07/13/20 04:25 38.9 90 36 111/56 (74) 91 Trach Collar 10.00 Height & Weight Height: 5'0.00" Weight: 136lbs. 9.6oz. 61.652650en; 15.00 BMI Method:Estimated General Appearance: No Apparent Distress, WD/WN HEENT: PERRL/EOMI, Normal ENT Inspection, Other (Mucous membranes moist) Neck: Normal Inspection; No JVD Respiratory: Crackles, Rhonci, Wheezing Cardiovascular: Regular Rate, Rhythm, No Edema, No Murmur Capillary Refill: Less Than 3 Seconds Extremity: Normal Inspection, No Pedal Edema Neurologic/Psychiatric: Alert, Normal Mood/Affect, Other (Spastic paralysis of the left side) Results Lab Laboratory Tests 07/13/20 04:50 Assessment/Plan Assessment/Plan Acute on chronic respiratory failure with hx of tracheostomy -Check ABG COVID-19 PNA -Souza culture -Start Zosyn and Vanco -Check Sputum c&S -Remdesivir, CVP -Decadron Pancytopenia JONATHAN BASSETT DO Jul 13, 2020 11:09
[2020-07-13] MEDS ORDERED: ENOXAPARIN 40 MG/0.4 ML (LOVENOX) SYR SC SCH (11:15)
--- NOTE | 2020-07-13 11:45 | NUR ---
PT REQUIRING VERY FREQUENT SUCTIONING FROM TRACH, COUGHING UP VERY LARGE AMOUNTS OF THICK CLEAR SPUTUM.
[2020-07-13] MEDS: LACTATED RINGERS 1,000 ML IV SCH ×2 (12:00→21:58)
--- NOTE | 2020-07-13 12:30 | NUR ---
PT CONT TO HAVE VERY LARGE AMOUNT OF CLEAR SPUTUM SUCTIONED FROM TRACH FREQUENTLY
--- NOTE | 2020-07-13 12:30 | NUR ---
CR 1.7; CR CL ~20; WT 36 KG; VANCO 750 MG IV Q24H; TROUGH AFTER 2ND DOSE
--- NOTE | 2020-07-13 12:40 | NUR ---
CLARIFIED REMDESIVIR DOSING WITH DR BASSETT DUE TO SCR 1.7 AND WEIGHT OF 36KG. DOSING WEIGHT BASED DOSING 5MG/KG (150MG) AND 2.5MG/KG (90MG) X 4 MORE DAYS.
[2020-07-13] MEDS ORDERED: PIPERACILLIN/TAZO 4.5 GM/NS 100 ML IV NR ×2 (12:45)
[2020-07-13] MEDS ORDERED: NS IV NR ×4 (13:00)
[2020-07-13] MEDS ORDERED: REMDESIVIR IV NR ×4 (13:00)
[2020-07-13 14:23] VITALS: BP 111/56
[2020-07-13] MEDS ORDERED: NS IV 500 ML 500 ML IV SCH (15:00)
[2020-07-13] MEDS ORDERED: AZITHROMYCIN 500 MG/NS 250 ML IVPB IV ONE ×2 (15:00)
[2020-07-13] MEDS ORDERED: ONDANSETRON 4 MG/2 ML (SDV) Z0FRAN IVP PRN (15:00)
[2020-07-13] MEDS ORDERED: ACETAMINOPHEN 325 MG SUPP (TYLENOL) PR PRN (15:00)
[2020-07-13] MEDS: CEFEPIME 1,000 MG/SWFI 10 ML IV PUSH IV SCH ×4 (15:14→20:08)
[2020-07-13] MEDS: ENOXAPARIN 30 MG/0.3 ML (LOVENOX) SYR SC SCH (15:15)
[2020-07-13] MEDS: VANCOMYCIN 750 MG/NS 250 ML IVPB IV SCH ×2 (15:15)
[2020-07-13 18:55] VITALS: BP 102/47
[2020-07-13] MEDS ORDERED: PIPERACILLIN/TAZO 4.5 GM/NS 100 ML IV SCH ×2 (19:00)
[2020-07-13] MEDS ORDERED: KETOROLAC 15 MG/ML VIAL IVP ONE (19:15)
[2020-07-13] MEDS: guaiFENesin (MUCINEX) 600 MG TAB PO SCH (21:13)
[2020-07-13] MEDS: PIPERACILLIN/TAZO 4.5 GM/NS 100 ML IV SCH ×2 (21:58)
[2020-07-13 22:15] VITALS: BP 106/51
[2020-07-14] MEDS: RT-ALBUTEROL INHALER HFA (VENTOLIN HFA) 18 GM IH SCH ×5 (01:17→14:22)
[2020-07-14] MEDS: CEFEPIME 1,000 MG/SWFI 10 ML IV PUSH IV SCH ×2 (04:44)
--- NOTE | 2020-07-14 08:32 | History & Physical-Hospitalist ---
History of Present Illness HPI/Chief Complaint H&P PERFORMED 07/13 Madelin Shelton is a 60 year old female with history of stroke resulting in chronic debility, tracheostomy, who is a resident of [facility] who presented with bleeding around her tracheostomy site. She had also been having increased secretions. It is difficult for her to communicate and thus the history is difficult to obtain. She is able to shake her head yes and no to answer some questions. She denies being short of breath. She says she is having fevers. She is having increased secretions. She is having pain in her back. Source: patient, RN/MD Exam Limitations: clinical condition Date Seen 07/13/20 Time Seen by a Provider: 17:00 Attending Physician Ermias Loco MD PCP Joseph Michaud MD Referring Physician Date of Admission Jul 13, 2020 at 08:24 Home Medications & Allergies Home Medications Reviewed patient Home Medication Reconciliation performed by pharmacy medication reconciliations podiatric technician and/or nursing. Patients Allergies have been reviewed. Allergies Allergies Coded Allergies morphine (Unverified Allergy, Unknown, 07/13/20) Past Ybghnix-Ifsajv-Fnwbiv Hx Past Med/Social Hx: Reviewed Nursing Past Med/Soc Hx Patient Social History Alcohol Use: Denies Use Recreational Drug Use: No Smoking Status: Never a Smoker 2nd Hand Smoke Exposure: No Recent Foreign Travel: No Contact w/other who traveled: No Recent Hopitalizations: No Recent Infectious Disease Expo: No Seasonal Allergies Seasonal Allergies: No Past Medical History Surgeries: Bowel Surgery, Tracheostomy Currently Using CPAP: No Currently Using BIPAP: No Cardiac: Coronary Artery Disease, Hypertension, Peripheral Vascular Neurological: Stroke Sexually Transmitted Disease: No HIV/AIDS: No Gastrointestinal: Gastroesophageal Reflux Musculoskeletal: Contracture Endocrine: Hypothyroidsim Psychosocial: Anxiety, Depression History of Blood Disorders: No Family History Patient reports no known family medical history. Unable to obtain due to clinical condition Review of Systems Constitutional: fever Respiratory: cough, phlegm Cardiovascular: no symptoms reported Gastrointestinal: no symptoms reported Genitourinary: no symptoms reported Musculoskeletal: back pain Skin: no symptoms reported Psychiatric/Neurological: No Symptoms Reported Physical Exam Physical Exam Vital Signs Vital Signs - First Documented 07/13/20 07/13/20 04:25 13:58 Temp 37.2 Pulse 90 Resp 36 B/P (MAP) 111/56 (74) Pulse Ox 91 O2 Delivery Trach Collar O2 Flow Rate 10.00 FiO2 50 Capillary Refill : Less Than 3 Seconds Height, Weight, BMI Height: 5'0.00" Weight: 136lbs. 9.6oz. 61.327221ql; 15.00 BMI Method:Estimated General Appearance: No Apparent Distress, Chronically ill HEENT: PERRL/EOMI Neck: Other (trach in place, no bleeding, thick secretions) Respiratory: No Respiratory Distress, Other (coarse breath sounds bilaterally) Cardiovascular: Regular Rate, Rhythm, No Edema, No Murmur Gastrointestinal: Normal Bowel Sounds, Non Tender, Soft, Other (colostomy in place with liquid stool) Extremity: Normal Inspection, Non Tender, No Pedal Edema Neurologic/Psychiatric: Alert, Motor Weakness Skin: Normal Color, Warm/Dry Results Results/Procedures Labs Laboratory Tests 07/13/20 04:50 Patient resulted labs reviewed. Imaging: Reviewed Imaging Report Assessment/Plan Admission Diagnosis Acute respiratory failure due to COVID-19 Admission Status: Inpatient Order (span 2 midnights) Reason for Inpatient Admission: Respiratory failure requiring supplemental oxygen COVID and PNA requiring IV medications Assessment and Plan Acute respiratory failure due to COVID-19 Pneumonia Acute on chronic respiratory failure with hypoxia Tracheostomy in place Bleeding at tracheostomy site Pancytopenia COVID positive at outside facility CXR poor image, no clear evidence of severe infiltrate Procalcitonin 0.22, borderline elevated All cell lines decreased, likely due to COVID, monitor Bleeding resolved at this time Started on Decadron and Remdesivir Convalescent plasma ordered Started on Vanc and Zosyn for pneumonia Tracheostomy cares as needed Add Mucinex Supplemental oxygen as needed DVT Prophylaxis: Lovenox Diagnosis/Problems Diagnosis/Problems (1) Respiratory failure Status: Acute Qualifiers: Chronicity: acute on chronic Respiratory failure complication: hypoxia Qualified Codes: J96.21 - Acute and chronic respiratory failure with hypoxia (2) COVID-19 Status: Acute (3) Pancytopenia Status: Acute (4) Increased tracheal secretions Status: Acute Clinical Quality Measures DVT/VTE Risk/Contraindication: Risk Factor Score Per Nursin RFS Level Per Nursing on Admit: 4+=Very High ERMIAS LOCO MD Jul 14, 2020 08:32
[2020-07-14] MEDS: guaiFENesin (MUCINEX) 600 MG TAB PO SCH ×2 (08:51→20:21)
[2020-07-14] MEDS ORDERED: HYDROcodone/APAP 7.5 MG/325 MG (LORTAB, LORCET PLUS) TABLET PO ONE (09:01)
[2020-07-14] MEDS: HYDROcodone/APAP 7.5 MG/325 MG (LORTAB, LORCET PLUS) TABLET PO SCH ×2 (09:06→20:22)
[2020-07-14 09:12] LABS: BASOPHILS % (AUTO) 0 % (0-10); EOSINOPHILS % (AUTO) 0 % (0-10); HEMATOCRIT 27 % (35-52); HEMOGLOBIN 9.1 g/dL (11.5-16.0); LYMPHOCYTES # (AUTO) 0.4 10^3/uL (1.0-4.0); LYMPHOCYTES % (AUTO) 15 % (12-44); MEAN CORPUSCULAR HEMOGLOBIN 32 pg (25-34); MEAN CORPUSCULAR HGB CONC 34 g/dL (32-36); MEAN CORPUSCULAR VOLUME 94 fL (80-99); MEAN PLATELET VOLUME 12.5 fL (9.0-12.2); MONOCYTES # (AUTO) 0.3 10^3/uL (0.0-1.0); MONOCYTES % (AUTO) 13 % (0-12); NEUTROPHILS # (AUTO) 1.7 10^3/uL (1.8-7.8); NEUTROPHILS % (AUTO) 70 % (42-75); PLATELET COUNT 76 10^3/uL (130-400); WHITE BLOOD COUNT 2.4 10^3/uL (4.3-11.0)
[2020-07-14 09:17] LABS: ALBUMIN 2.8 GM/DL (3.2-4.5); POTASSIUM 3.5 MMOL/L (3.6-5.0)
[2020-07-14 09:18] LABS: CALCIUM 8.1 MG/DL (8.5-10.1)
[2020-07-14 09:19] LABS: TOTAL PROTEIN 5.6 GM/DL (6.4-8.2)
[2020-07-14 09:21] LABS: BILIRUBIN,TOTAL 0.3 MG/DL (0.1-1.0)
[2020-07-14 09:23] LABS: CREATININE SERUM 1.5 MG/DL (0.60-1.30)
[2020-07-14] MEDS: PIPERACILLIN/TAZO 4.5 GM/NS 100 ML IV SCH ×4 (11:00→20:22)
--- NOTE | 2020-07-14 11:34 | Progress Note - Hospitalist ---
Subjective HPI/CC On Admission Date Seen by Provider: Jul 14, 2020 Time Seen by Provider: 11:00 H&P PERFORMED 07/13 Madelin Shelton is a 60 year old female with history of stroke resulting in chronic debility, tracheostomy, who is a resident of [facility] who presented with bleeding around her tracheostomy site. She had also been having increased secretions. It is difficult for her to communicate and thus the history is difficult to obtain. She is able to shake her head yes and no to answer some questions. She denies being short of breath. She says she is having fevers. She is having increased secretions. She is having pain in her back. Subjective/Events-last exam Patient remains stable Minimal suctioning per RN Patient appears very end stage Transferring to floor Trach intact Contractures noted Focused Exam Lactate Level 07/13/20 04:50: Lactic Acid Level 2.32*H 07/13/20 07:02: Lactic Acid Level 0.87 Objective Exam Vital Signs Vital Signs Date Time Temp Pulse Resp B/P (MAP) Pulse Ox O2 Delivery O2 Flow Rate FiO2 07/15/20 04:06 36.8 70 20 139/59 (85) 99 Trach Collar 10.00 07/14/20 14:22 30 Capillary Refill : Less Than 3 Seconds General Appearance: No Apparent Distress, WD/WN, Chronically ill Respiratory: Lungs Clear Cardiovascular: Regular Rate, Rhythm Neurologic/Psychiatric: Alert, Disoriented Results/Procedures Lab Laboratory Tests 07/14/20 08:51 07/15/20 06:20 Patient resulted labs reviewed. Imaging: Reviewed Imaging Report Assessment/Plan Assessment and Plan Assess & Plan/Chief Complaint Assessment per Dr Epstein with my modifications in bold italic: Acute on chronic respiratory failure with hx of tracheostomy -Check ABG -Stable and moving to floor COVID-19 PNA -Souza culture -Start Zosyn and Vanco -Check Sputum c&S -Remdesivir, CVP -Decadron Pancytopenia Poor prognosis, chronic debility, monitor closely, move to floor Clinical Quality Measures DVT/VTE Risk/Contraindication: Risk Factor Score Per Nursin RFS Level Per Nursing on Admit: 4+=Very High MOIZ LUCAS DO Jul 14, 2020 11:34
--- NOTE | 2020-07-14 12:00 | NUR ---
bedside report given to Ruthy RUBIN.
[2020-07-14] MEDS: ENOXAPARIN 30 MG/0.3 ML (LOVENOX) SYR SC SCH (14:42)
[2020-07-14] MEDS: VANCOMYCIN 750 MG/NS 250 ML IVPB IV SCH ×2 (14:42)
[2020-07-14] MEDS ORDERED: AZITHROMYCIN 250 MG/NS 250 ML IVPB IV SCH ×2 (15:00)
[2020-07-14] MEDS: REMDESIVIR IV SCH (15:00)
[2020-07-14] MEDS: NS IV SCH (15:00)
[2020-07-14 15:59] VITALS: BP 120/57
[2020-07-14 19:48] VITALS: BP 140/60
[2020-07-14 23:59] VITALS: BP 128/65
[2020-07-15] MEDS: LACTATED RINGERS 1,000 ML IV SCH (03:55)
[2020-07-15 04:06] VITALS: BP 139/59
[2020-07-15 06:36] LABS: BASOPHILS % (AUTO) 0 % (0-10); EOSINOPHILS % (AUTO) 0 % (0-10); MONOCYTES # (AUTO) 0.3 10^3/uL (0.0-1.0); MONOCYTES % (AUTO) 12 % (0-12); NEUTROPHILS # (AUTO) 2.2 10^3/uL (1.8-7.8)
[2020-07-15 06:38] LABS: HEMATOCRIT 27 % (35-52); LYMPHOCYTES # (AUTO) 0.4 10^3/uL (1.0-4.0); LYMPHOCYTES % (AUTO) 13 % (12-44); MEAN CORPUSCULAR HEMOGLOBIN 31 pg (25-34); MEAN CORPUSCULAR HGB CONC 33 g/dL (32-36); MEAN CORPUSCULAR VOLUME 95 fL (80-99); MEAN PLATELET VOLUME 13.1 fL (9.0-12.2); NEUTROPHILS % (AUTO) 75 % (42-75); PLATELET COUNT 79 10^3/uL (130-400); WHITE BLOOD COUNT 2.9 10^3/uL (4.3-11.0)
[2020-07-15 06:50] LABS: ALBUMIN 2.5 GM/DL (3.2-4.5)
[2020-07-15 06:51] LABS: POTASSIUM 3.2 MMOL/L (3.6-5.0)
[2020-07-15 06:52] LABS: CALCIUM 7.9 MG/DL (8.5-10.1)
[2020-07-15 06:53] LABS: TOTAL PROTEIN 5.2 GM/DL (6.4-8.2)
[2020-07-15 06:55] LABS: BILIRUBIN,TOTAL 0.2 MG/DL (0.1-1.0)
[2020-07-15 06:57] LABS: CREATININE SERUM 1.36 MG/DL (0.60-1.30)
[2020-07-15 08:00] VITALS: BP 109/44
[2020-07-15] MEDS: HYDROcodone/APAP 7.5 MG/325 MG (LORTAB, LORCET PLUS) TABLET PO SCH ×2 (08:30→20:20)
[2020-07-15] MEDS: guaiFENesin (MUCINEX) 600 MG TAB PO SCH ×2 (08:30→20:20)
[2020-07-15] MEDS: PIPERACILLIN/TAZO 4.5 GM/NS 100 ML IV SCH ×4 (08:31→20:20)
[2020-07-15] MEDS ORDERED: NS 100 ML (IVPB) BAG IV ONE ×2 (10:15→11:45)
[2020-07-15] MEDS ORDERED: NS IV 500 ML 500 ML ONE (10:32)
[2020-07-15] MEDS: REMDESIVIR IV SCH (11:33)
[2020-07-15] MEDS: NS IV SCH (11:33)
[2020-07-15 11:49] VITALS: BP 145/65
[2020-07-15] MEDS ORDERED: TROUGH ORDER-PHARMACY XX NR (12:00)
--- NOTE | 2020-07-15 12:06 | Progress Note - Hospitalist ---
Subjective HPI/CC On Admission Date Seen by Provider: Jul 15, 2020 Time Seen by Provider: 10:25 aMdelin Shelton is a 60 year old female with history of stroke resulting in chronic debility, tracheostomy, who is a resident of [facility] who presented with bleeding around her tracheostomy site. She had also been having increased secretions. It is difficult for her to communicate and thus the history is difficult to obtain. She is able to shake her head yes and no to answer some questions. She denies being short of breath. She says she is having fevers. She is having increased secretions. She is having pain in her back. Subjective/Events-last exam She is uncomfortable in bed. She wants to sit up . She denies trouble breathing. She denies pain. She does not have any other complaints. Focused Exam Lactate Level 07/13/20 04:50: Lactic Acid Level 2.32*H 07/13/20 07:02: Lactic Acid Level 0.87 Objective Exam Vital Signs Vital Signs Date Time Temp Pulse Resp B/P (MAP) Pulse Ox O2 Delivery O2 Flow Rate FiO2 07/15/20 11:49 36.3 80 18 145/65 (91) 96 Trach Collar 10.00 07/15/20 08:20 30 Capillary Refill : Less Than 3 Seconds General Appearance: No Apparent Distress, Thin Neck: Other (tracheostomy in place, wearing trach collar) Respiratory: No Respiratory Distress, Other (coarse breath sounds bilaterally) Cardiovascular: Regular Rate, Rhythm, No Edema, No Murmur Gastrointestinal: Normal Bowel Sounds, Non Tender, Soft, Other (colostomy and PEG tube in place) Extremity: Normal Inspection, Non Tender, No Pedal Edema Neurologic/Psychiatric: Alert, Motor Weakness Skin: Normal Color, Warm/Dry Results/Procedures Lab Laboratory Tests 07/15/20 06:20 Patient resulted labs reviewed. Imaging: Reviewed Imaging Report Assessment/Plan Assessment and Plan Assess & Plan/Chief Complaint Acute respiratory failure due to COVID-19 Acute on chronic respiratory failure with hypoxia Staph aureus and Pseudomonas pneumonia Staph aureus bacteremia Tracheostomy in place Continue Decadron and Remdesivir s/p 1 unit convalescent plasma Sputum culture with Pseudomonas and Staph aureus, susceptibilities pending Blood culture positive for Staph aureus Repeat blood cultures tomorrow Consider echo if bacteremia persists Continue Vanc and Zosyn for pneumonia Tracheostomy cares as needed Supplemental oxygen as needed Pancytopenia Iron deficiency anemia Anemia of chronic disease Iron studies showed mixed picture Folic acid within normal limits Stable, continue to monitor History of CVA with residual deficits PEG tube in place Colostomy Continue tube feeds DVT Prophylaxis: Lovenox Bleeding at tracheostomy site, resolved Diagnosis/Problems Diagnosis/Problems (1) Respiratory failure Status: Acute Qualifiers: Chronicity: acute on chronic Respiratory failure complication: hypoxia Qualified Codes: J96.21 - Acute and chronic respiratory failure with hypoxia (2) COVID-19 Status: Acute (3) Pneumonia due to Staphylococcus aureus Status: Acute (4) Pneumonia due to Pseudomonas aeruginosa Status: Acute (5) Staphylococcus aureus bacteremia Status: Acute (6) Pancytopenia Status: Acute (7) Increased tracheal secretions Status: Acute (8) PEG (percutaneous endoscopic gastrostomy) status Status: Chronic (9) Colostomy in place Status: Chronic (10) Tracheostomy in place Status: Chronic (11) History of CVA with residual deficit Status: Chronic (12) Iron deficiency anemia Status: Acute (13) Anemia of chronic disease Status: Acute (14) Body mass index (BMI) less than 16.5 Status: Acute Clinical Quality Measures DVT/VTE Risk/Contraindication: Risk Factor Score Per Nursin RFS Level Per Nursing on Admit: 4+=Very High ERMIAS LOCO MD Jul 15, 2020 12:06
[2020-07-15] MEDS: POTASSIUM CL 10MEQ/50ML IVPB 50 ML IV SCH ×4 (12:58→17:04)
[2020-07-15] MEDS: ENOXAPARIN 30 MG/0.3 ML (LOVENOX) SYR SC SCH (14:02)
[2020-07-15] MEDS: VANCOMYCIN 750 MG/NS 250 ML IVPB IV SCH ×2 (14:02)
[2020-07-15] MEDS: MAGNESIUM 1 GM/100 ML IVPB 100 ML IV SCH ×4 (15:49→20:19)
[2020-07-15 16:33] VITALS: BP 113/42
[2020-07-15 20:00] VITALS: BP 127/53
[2020-07-16] VITALS: BP 127/55
[2020-07-16] MEDS: LACTATED RINGERS 1,000 ML IV SCH (00:04)
[2020-07-16 05:42] LABS: BASOPHILS % (AUTO) 0 % (0-10); EOSINOPHILS % (AUTO) 0 % (0-10); HEMATOCRIT 32 % (35-52); HEMOGLOBIN 10.7 g/dL (11.5-16.0); LYMPHOCYTES # (AUTO) 1.1 10^3/uL (1.0-4.0); LYMPHOCYTES % (AUTO) 20 % (12-44); MEAN CORPUSCULAR HEMOGLOBIN 31 pg (25-34); MEAN CORPUSCULAR HGB CONC 33 g/dL (32-36); MEAN CORPUSCULAR VOLUME 94 fL (80-99); MEAN PLATELET VOLUME 12.6 fL (9.0-12.2); MONOCYTES # (AUTO) 0.6 10^3/uL (0.0-1.0); MONOCYTES % (AUTO) 10 % (0-12); NEUTROPHILS # (AUTO) 3.8 10^3/uL (1.8-7.8); NEUTROPHILS % (AUTO) 69 % (42-75); PLATELET COUNT 124 10^3/uL (130-400); WHITE BLOOD COUNT 5.4 10^3/uL (4.3-11.0)
[2020-07-16 06:13] LABS: ALBUMIN 3.1 GM/DL (3.2-4.5); POTASSIUM 3.6 MMOL/L (3.6-5.0)
[2020-07-16 06:14] LABS: CALCIUM 8.4 MG/DL (8.5-10.1)
[2020-07-16 06:15] LABS: TOTAL PROTEIN 6.3 GM/DL (6.4-8.2)
[2020-07-16 06:17] LABS: BILIRUBIN,TOTAL 0.3 MG/DL (0.1-1.0)
[2020-07-16 06:18] LABS: PHOSPHORUS 1.2 MG/DL (2.3-4.7)
[2020-07-16 06:19] LABS: CREATININE SERUM 1.26 MG/DL (0.60-1.30)
[2020-07-16] MEDS: KCL 20 MEQ TAB (K-DUR) PO SCH (06:38)
[2020-07-16] MEDS: POTASSIUM CL 10MEQ/50ML IVPB 50 ML IV SCH ×3 (06:41→07:53)
[2020-07-16] MEDS: MAGNESIUM 1 GM/100 ML IVPB 100 ML IV SCH (07:09)
[2020-07-16] MEDS: HYDROcodone/APAP 7.5 MG/325 MG (LORTAB, LORCET PLUS) TABLET PO SCH ×2 (07:56→21:16)
[2020-07-16 08:00] VITALS: BP 162/88
[2020-07-16] MEDS: guaiFENesin (MUCINEX) 600 MG TAB PO SCH ×2 (08:00→21:16)
[2020-07-16] MEDS ORDERED: GLYCOPYRROLATE PO (09:54)
[2020-07-16] MEDS ORDERED: RT-ALBUINH IH (09:54)
[2020-07-16] MEDS ORDERED: ZINC56.715 TP (09:54)
[2020-07-16] MEDS ORDERED: ONDA4SOL11 PEG (09:54)
[2020-07-16] MEDS ORDERED: LORA5SOL7 PEG (09:54)
[2020-07-16] MEDS ORDERED: LACT1TAB9 PEG (09:54)
[2020-07-16] MEDS ORDERED: ACET325C7 PEG (09:54)
[2020-07-16] MEDS ORDERED: ASPI-1238 PEG (09:54)
[2020-07-16] MEDS ORDERED: ZINC50TA58 PEG (09:54)
[2020-07-16] MEDS ORDERED: PANCREAZE PEG (09:54)
[2020-07-16] MEDS ORDERED: SALI325S2 TP (09:54)
[2020-07-16] MEDS ORDERED: [UNRECOGNIZED DRUG - OTHER] PEG (09:54)
[2020-07-16] MEDS ORDERED: LEVO125T6 PO (09:54)
[2020-07-16] MEDS ORDERED: HYDR-3817 PEG (09:54)
[2020-07-16] MEDS ORDERED: SERT20OR6 GT (09:54)
--- NOTE | 2020-07-16 09:57 | NUR ---
MED REC WAS ENTERED USING THE MAR FROM [facility]
[2020-07-16] MEDS: PIPERACILLIN/TAZO 4.5 GM/NS 100 ML IV SCH ×4 (10:33→22:09)
[2020-07-16] MEDS: VANCOMYCIN 750 MG/NS 250 ML IVPB IV SCH ×2 (12:27)
[2020-07-16] MEDS: ENOXAPARIN 30 MG/0.3 ML (LOVENOX) SYR SC SCH (12:27)
[2020-07-16] MEDS: REMDESIVIR IV SCH (12:27)
[2020-07-16] MEDS: NS IV SCH (12:27)
--- NOTE | 2020-07-16 13:21 | Progress Note - Hospitalist ---
Subjective HPI/CC On Admission Date Seen by Provider: Jul 16, 2020 Time Seen by Provider: 13:17 Madelin Shelton is a 60 year old female with history of stroke resulting in chronic debility, tracheostomy, who is a resident of [facility] who presented with bleeding around her tracheostomy site. She had also been having increased secretions. It is difficult for her to communicate and thus the history is difficult to obtain. She is able to shake her head yes and no to answer some questions. She denies being short of breath. She says she is having fevers. She is having increased secretions. She is having pain in her back. Subjective/Events-last exam Pt alert and awake when I entered room. Reaches out to hold my hand when I entered. Shook head no when asked if she needed anything. Nodding when asked if she felt better. RN reports she is feeling better. Objective Exam Vital Signs Vital Signs Date Time Temp Pulse Resp B/P (MAP) Pulse Ox O2 Delivery O2 Flow Rate FiO2 07/16/20 08:57 Trach Collar 15.00 07/16/20 08:00 36.3 93 20 162/88 (112) 96 07/15/20 15:23 30 Capillary Refill : Less Than 3 Seconds General Appearance: No Apparent Distress, Chronically ill, Thin Neck: Other (trach in place) Respiratory: Rhonci Cardiovascular: Regular Rate, Rhythm, No Murmur Neurologic/Psychiatric: Alert, Aphasia Results/Procedures Lab Laboratory Tests 07/16/20 05:22 07/16/20 05:30 Patient resulted labs reviewed. Imaging: Reviewed Imaging Report Assessment/Plan Assessment and Plan Assess & Plan/Chief Complaint Acute respiratory failure due to COVID-19 Acute on chronic respiratory failure with hypoxia Staph aureus and Pseudomonas pneumonia Staph aureus bacteremia Tracheostomy in place Continue Decadron and Remdesivir s/p 1 unit convalescent plasma Sputum culture with pansensitive Pseudomonas and Staph aureus Blood culture positive for Staph aureus Repeat blood cultures today Consider echo if bacteremia persists Continue Vanc and Zosyn for pneumonia Tracheostomy cares as needed Supplemental oxygen as needed Pancytopenia Iron deficiency anemia Anemia of chronic disease Iron studies showed mixed picture Folic acid within normal limits Stable, continue to monitor History of CVA with residual deficits PEG tube in place Colostomy Continue tube feeds DVT Prophylaxis: Lovenox Bleeding at tracheostomy site, resolved Clinical Quality Measures DVT/VTE Risk/Contraindication: Risk Factor Score Per Nursin RFS Level Per Nursing on Admit: 4+=Very High AURORA RUCKER MD Jul 16, 2020 13:21
[2020-07-16] MEDS: HYDROcodone/APAP 7.5MG-325 MG/15 ML (LORTAB) UDC PO PRN (15:03)
--- NOTE | 2020-07-16 15:44 | NUR ---
Note pt currently has PEG tube placed and is receiving TF of Jevity 1.5 at 50ml/hr x22h, with 240ml free water flushes q6h for hydration. Per Ruthy RN, pt is also receiving LF at 125ml/hr. With free water from TF, flushes, and LR, this RD feels like pt is getting too much fluid. Discussed concerns with Dr. Harvey about decreasing water flushes, but she said pt may no longer need LR. Would recommend decreasing TF to 40ml/hr to provide 1440 kcal (38 kcal/kg); 61 g Pro (1.6 g Pro/kg); and 1690ml free water (with 240ml water flushes q6h). Will continue to follow and reassess as pt needs, intake, and status change. Christian SIMS, MS RD LD [phone] CELL
--- NOTE | 2020-07-16 15:47 | NUR ---
CM/SS following for discharge planning. Plan: At time of discharge patient would be return back to [facility]. CM/SS gave Raiza (social service liaison) at the facility an update. CM/SS will continue to follow.
[2020-07-16 16:12] VITALS: BP 125/83
[2020-07-17] VITALS: BP 154/63
--- NOTE | 2020-07-17 02:45 | NUR ---
peg tube flushed at 0200 with 240 ml of sterile water. 20 ml of residual. Next flush at 0700. feeding continued at 50 mL/hr.
[2020-07-17 06:42] LABS: BASOPHILS % (AUTO) 0 % (0-10); EOSINOPHILS % (AUTO) 0 % (0-10); HEMATOCRIT 33 % (35-52); LYMPHOCYTES # (AUTO) 1.2 10^3/uL (1.0-4.0); LYMPHOCYTES % (AUTO) 19 % (12-44); MEAN CORPUSCULAR HEMOGLOBIN 31 pg (25-34); MEAN CORPUSCULAR HGB CONC 33 g/dL (32-36); MEAN CORPUSCULAR VOLUME 93 fL (80-99); MEAN PLATELET VOLUME 12.2 fL (9.0-12.2); MONOCYTES # (AUTO) 0.7 10^3/uL (0.0-1.0); MONOCYTES % (AUTO) 10 % (0-12); NEUTROPHILS # (AUTO) 4.7 10^3/uL (1.8-7.8); NEUTROPHILS % (AUTO) 71 % (42-75); PLATELET COUNT 131 10^3/uL (130-400); WHITE BLOOD COUNT 6.7 10^3/uL (4.3-11.0)
[2020-07-17 06:48] LABS: ALBUMIN 3.3 GM/DL (3.2-4.5); POTASSIUM 3.2 MMOL/L (3.6-5.0)
[2020-07-17 06:50] LABS: CALCIUM 8.8 MG/DL (8.5-10.1)
[2020-07-17 06:51] LABS: TOTAL PROTEIN 6.8 GM/DL (6.4-8.2)
[2020-07-17] MEDS: KCL 20 MEQ TAB (K-DUR) PO SCH (06:52)
[2020-07-17 06:53] LABS: BILIRUBIN,TOTAL 0.5 MG/DL (0.1-1.0)
[2020-07-17 06:54] LABS: CREATININE SERUM 1.44 MG/DL (0.60-1.30)
[2020-07-17] MEDS: POTASSIUM CL 10MEQ/50ML IVPB 50 ML IV SCH ×3 (07:13→12:31)
[2020-07-17] MEDS ORDERED: MAGNESIUM 1 GM/100 ML IVPB 100 ML IV SCH (07:30)
[2020-07-17] MEDS: MAGNESIUM 1 GM/100 ML IVPB 100 ML IV SCH ×3 (07:31→13:38)
[2020-07-17] MEDS: HYDROcodone/APAP 7.5 MG/325 MG (LORTAB, LORCET PLUS) TABLET PO SCH ×2 (08:05→22:17)
[2020-07-17] MEDS: guaiFENesin (MUCINEX) 600 MG TAB PO SCH ×2 (08:05→22:17)
[2020-07-17 08:22] VITALS: BP 154/65
[2020-07-17] MEDS: PIPERACILLIN/TAZO 4.5 GM/NS 100 ML IV SCH ×4 (09:35→22:17)
--- NOTE | 2020-07-17 11:16 | Progress Note - Hospitalist ---
Subjective HPI/CC On Admission Date Seen by Provider: Jul 17, 2020 Time Seen by Provider: 11:11 Madelin Shelton is a 60 year old female with history of stroke resulting in chronic debility, tracheostomy, who is a resident of [facility] who presented with bleeding around her tracheostomy site. She had also been having increased secretions. It is difficult for her to communicate and thus the history is difficult to obtain. She is able to shake her head yes and no to answer some questions. She denies being short of breath. She says she is having fevers. She is having increased secretions. She is having pain in her back. Subjective/Events-last exam Pt mouthed "good" when asked how she was doing. Shook head no about any pain or needs. Down to 10lpm trach collar Objective Exam Vital Signs Vital Signs Date Time Temp Pulse Resp B/P (MAP) Pulse Ox O2 Delivery O2 Flow Rate FiO2 07/17/20 09:46 97 Trach Collar 10.00 30 07/17/20 08:22 36.2 76 20 154/65 (94) Capillary Refill : Less Than 3 SecondsLess Than 3 Seconds General Appearance: No Apparent Distress, WD/WN Neck: Other (trach) Respiratory: No Crackles; Decreased Breath Sounds; No Wheezing; Other (trach collar ) Cardiovascular: Regular Rate, Rhythm, No Murmur Gastrointestinal: Normal Bowel Sounds, Soft, Other (PEG) Neurologic/Psychiatric: Alert Results/Procedures Lab Laboratory Tests 07/17/20 06:12 Patient resulted labs reviewed. Imaging: Reviewed Imaging Report Assessment/Plan Assessment and Plan Assess & Plan/Chief Complaint Acute respiratory failure due to COVID-19 Acute on chronic respiratory failure with hypoxia Staph aureus and Pseudomonas pneumonia Staph aureus bacteremia Tracheostomy in place Continue Decadron and Remdesivir s/p 1 unit convalescent plasma Sputum culture with pansensitive Pseudomonas and Staph aureus Blood culture positive for Staph aureus Repeat blood cultures negative Consider echo if bacteremia persists Continue Vanc and Zosyn for pneumonia Tracheostomy cares as needed Supplemental oxygen as needed, weaning down, baseline is 4lpm per report Pancytopenia Iron deficiency anemia Anemia of chronic disease Iron studies showed mixed picture Folic acid within normal limits Stable, continue to monitor History of CVA with residual deficits PEG tube in place Colostomy Continue tube feeds DVT Prophylaxis: Lovenox Bleeding at tracheostomy site, resolved Clinical Quality Measures DVT/VTE Risk/Contraindication: Risk Factor Score Per Nursin RFS Level Per Nursing on Admit: 4+=Very High AURORA RUCKER MD Jul 17, 2020 11:16
[2020-07-17] MEDS ORDERED: NS IV 500 ML 500 ML ONE (13:07)
[2020-07-17] MEDS: VANCOMYCIN 750 MG/NS 250 ML IVPB IV SCH ×2 (13:26)
[2020-07-17] MEDS: NS IV SCH (13:27)
[2020-07-17] MEDS: REMDESIVIR IV SCH (13:27)
[2020-07-17] MEDS: ENOXAPARIN 30 MG/0.3 ML (LOVENOX) SYR SC SCH (13:38)
[2020-07-17] MEDS: HYDROcodone/APAP 7.5MG-325 MG/15 ML (LORTAB) UDC PO PRN (13:39)
[2020-07-17 16:59] VITALS: BP 117/51
[2020-07-17 23:52] VITALS: BP 143/64
[2020-07-18 06:12] LABS: BASOPHILS % (AUTO) 0 % (0-10); EOSINOPHILS % (AUTO) 0 % (0-10); HEMATOCRIT 31 % (35-52); HEMOGLOBIN 10.3 g/dL (11.5-16.0); LYMPHOCYTES # (AUTO) 1.5 10^3/uL (1.0-4.0); LYMPHOCYTES % (AUTO) 23 % (12-44); MEAN CORPUSCULAR HEMOGLOBIN 31 pg (25-34); MEAN CORPUSCULAR HGB CONC 33 g/dL (32-36); MEAN CORPUSCULAR VOLUME 93 fL (80-99); MEAN PLATELET VOLUME 12.2 fL (9.0-12.2); MONOCYTES # (AUTO) 0.6 10^3/uL (0.0-1.0); MONOCYTES % (AUTO) 9 % (0-12); NEUTROPHILS # (AUTO) 4.5 10^3/uL (1.8-7.8); NEUTROPHILS % (AUTO) 67 % (42-75); PLATELET COUNT 130 10^3/uL (130-400); WHITE BLOOD COUNT 6.7 10^3/uL (4.3-11.0)
--- NOTE | 2020-07-18 06:30 | NUR ---
peg tube flushed at 0630 with 240 ml of water per order. 5ml of residual. feeding continued at 50 mL/hr. pt tolerated well
[2020-07-18 06:31] LABS: ALBUMIN 3.1 GM/DL (3.2-4.5)
[2020-07-18 06:32] LABS: POTASSIUM 3.7 MMOL/L (3.6-5.0)
[2020-07-18 06:34] LABS: TOTAL PROTEIN 6.4 GM/DL (6.4-8.2)
[2020-07-18 06:36] LABS: BILIRUBIN,TOTAL 0.4 MG/DL (0.1-1.0)
[2020-07-18 06:38] LABS: CREATININE SERUM 1.45 MG/DL (0.60-1.30)
[2020-07-18] MEDS: POTASSIUM CL 10MEQ/50ML IVPB 50 ML IV SCH (07:00)
[2020-07-18] MEDS: MAGNESIUM 1 GM/100 ML IVPB 100 ML IV SCH (07:00)
[2020-07-18] MEDS: KCL 20 MEQ TAB (K-DUR) PO SCH (07:01)
[2020-07-18 08:00] VITALS: BP 147/80
--- NOTE | 2020-07-18 08:31 | NUR ---
PEG FEEDING STOPPED PER ORDER 0800. DR BASSETT NOTIFIED-DECADRON IM CHANGE TO IV? NEW ORDERS RECEIVED.
[2020-07-18] MEDS: guaiFENesin (MUCINEX) 600 MG TAB PO SCH ×2 (10:13→21:41)
[2020-07-18] MEDS: HYDROcodone/APAP 7.5 MG/325 MG (LORTAB, LORCET PLUS) TABLET PO SCH (10:14)
[2020-07-18] MEDS: PIPERACILLIN/TAZO 4.5 GM/NS 100 ML IV SCH ×4 (10:17→21:42)
--- NOTE | 2020-07-18 10:18 | NUR ---
DR RUCKER INCREASED PATIENT HYDROCODONE TO 10MG FOR BETTER PAIN MANAGEMENT. PATIENT CONTINUES PER OBSERVATION AND RN REPORT TO MOAN AND WITHDRAW IN PAIN DESPITE HYDROCODONE ADMINISTRATION. PATIENT GRIMACES AND CRIES OUT. WITH REPOSITIONING TO HELP FOR COMFORT. CONT TO MONITOR. Addendum: 07/18/20 at 1137 by TENA ACE RN FEEEDINGS RESTARTED @ 1000 PER ORDER
--- NOTE | 2020-07-18 11:20 | Progress Note - Hospitalist ---
Subjective HPI/CC On Admission Date Seen by Provider: Jul 18, 2020 Time Seen by Provider: 11:16 Madelin Shelton is a 60 year old female with history of stroke resulting in chronic debility, tracheostomy, who is a resident of [facility] who presented with bleeding around her tracheostomy site. She had also been having increased secretions. It is difficult for her to communicate and thus the history is difficult to obtain. She is able to shake her head yes and no to answer some questions. She denies being short of breath. She says she is having fevers. She is having increased secretions. She is having pain in her back. Subjective/Events-last exam Pt appears to be in pain and points to head. When asked about a headache she nods her head. Objective Exam Vital Signs Vital Signs Date Time Temp Pulse Resp B/P (MAP) Pulse Ox O2 Delivery O2 Flow Rate FiO2 07/18/20 08:00 36.1 87 20 147/80 (102) 93 Trach Collar 10.00 07/18/20 07:29 30 Capillary Refill : Less Than 3 SecondsLess Than 3 Seconds General Appearance: Chronically ill, Cachetic Neck: Other (trach) Respiratory: No Rhonci, No Wheezing Cardiovascular: Regular Rate, Rhythm, No Murmur Gastrointestinal: Normal Bowel Sounds, Non Tender, Soft Neurologic/Psychiatric: Alert, Aphasia Results/Procedures Lab Laboratory Tests 07/18/20 06:02 Patient resulted labs reviewed. Imaging: Reviewed Imaging Report Assessment/Plan Assessment and Plan Assess & Plan/Chief Complaint Acute respiratory failure due to COVID-19 Acute on chronic respiratory failure with hypoxia Staph aureus and Pseudomonas pneumonia Staph aureus bacteremia Tracheostomy in place Continue Decadron, completed Remdesivir s/p 1 unit convalescent plasma Sputum culture with pansensitive Pseudomonas and Staph aureus Blood culture positive for Staph aureus Repeat blood cultures negative Continue Vanc and Zosyn for pneumonia Tracheostomy cares as needed Supplemental oxygen as needed, weaning down, baseline is 2llpm from [place] Pancytopenia Iron deficiency anemia Anemia of chronic disease Iron studies showed mixed picture Folic acid within normal limits Stable, continue to monitor History of CVA with residual deficits PEG tube in place Colostomy Continue tube feeds DVT Prophylaxis: Lovenox Bleeding at tracheostomy site, resolved Clinical Quality Measures DVT/VTE Risk/Contraindication: Risk Factor Score Per Nursin RFS Level Per Nursing on Admit: 4+=Very High AURORA RUCKER MD Jul 18, 2020 11:20
[2020-07-18] MEDS: ENOXAPARIN 30 MG/0.3 ML (LOVENOX) SYR SC SCH (12:27)
[2020-07-18] MEDS: VANCOMYCIN 750 MG/NS 250 ML IVPB IV SCH ×2 (12:27)
[2020-07-18 16:37] VITALS: BP 141/63
[2020-07-18] MEDS: HYDROcodone/APAP 10 MG/325 MG (LORTAB) TAB PO SCH (21:44)
[2020-07-18 23:47] VITALS: BP 167/63
[2020-07-19 05:02] LABS: BASOPHILS % (AUTO) 0 % (0-10); EOSINOPHILS % (AUTO) 0 % (0-10); HEMATOCRIT 31 % (35-52); HEMOGLOBIN 10.1 g/dL (11.5-16.0); LYMPHOCYTES % (AUTO) 20 % (12-44); MEAN CORPUSCULAR HEMOGLOBIN 31 pg (25-34); MEAN CORPUSCULAR HGB CONC 33 g/dL (32-36); MEAN CORPUSCULAR VOLUME 93 fL (80-99); MEAN PLATELET VOLUME 12.2 fL (9.0-12.2); MONOCYTES # (AUTO) 0.4 10^3/uL (0.0-1.0); MONOCYTES % (AUTO) 8 % (0-12); NEUTROPHILS # (AUTO) 3.7 10^3/uL (1.8-7.8); NEUTROPHILS % (AUTO) 70 % (42-75); PLATELET COUNT 140 10^3/uL (130-400); WHITE BLOOD COUNT 5.3 10^3/uL (4.3-11.0)
[2020-07-19 05:25] LABS: ALBUMIN 3.1 GM/DL (3.2-4.5); BILIRUBIN,TOTAL 0.4 MG/DL (0.1-1.0); CALCIUM 9.1 MG/DL (8.5-10.1); CREATININE SERUM 1.53 MG/DL (0.60-1.30); POTASSIUM 3.8 MMOL/L (3.6-5.0); TOTAL PROTEIN 6.3 GM/DL (6.4-8.2)
[2020-07-19] MEDS: POTASSIUM CL 10MEQ/50ML IVPB 50 ML IV SCH (05:50)
[2020-07-19] MEDS: MAGNESIUM 1 GM/100 ML IVPB 100 ML IV SCH (05:51)
[2020-07-19] MEDS: KCL 20 MEQ TAB (K-DUR) PO SCH (05:51)
[2020-07-19 08:00] VITALS: BP 127/55
[2020-07-19] MEDS: HYDROcodone/APAP 10 MG/325 MG (LORTAB) TAB PO SCH ×2 (08:27→20:00)
[2020-07-19] MEDS: guaiFENesin (MUCINEX) 600 MG TAB PO SCH ×2 (08:27→20:00)
[2020-07-19] MEDS: PIPERACILLIN/TAZO 4.5 GM/NS 100 ML IV SCH ×4 (08:27→20:02)
--- NOTE | 2020-07-19 10:34 | NUR ---
CM/SS following patient for discharge planning. Plan: The patient would return to [facility] at time of discharge. [facility]: CM/SS gave Raiza an update yesterday 07/18 on the patient current status. She verbalized understanding. DPOA: CM/SS attempted to contact the patient listed DPOA in the computer [place]. The number listed is currently not active. Her current DPOA is Sandra Rios ([phone]). The current DPOA paper work was done at the facility. Sandra reports no one has been able to get ahold of the daughter since she moved into the facility. CM/SS introduced self and this sw role for discharge planning. No questions at this time. CM/SS will continue to follow.
--- NOTE | 2020-07-19 13:44 | Progress Note - Hospitalist ---
Subjective HPI/CC On Admission Date Seen by Provider: Jul 19, 2020 Time Seen by Provider: 13:38 Madelin Shelton is a 60 year old female with history of stroke resulting in chronic debility, tracheostomy, who is a resident of [facility] who presented with bleeding around her tracheostomy site. She had also been having increased secretions. It is difficult for her to communicate and thus the history is difficult to obtain. She is able to shake her head yes and no to answer some questions. She denies being short of breath. She says she is having fevers. She is having increased secretions. She is having pain in her back. Subjective/Events-last exam Pt laying in bed and resting comfortable. Denies pain but is pointing at the side of her bed. Unable to identify any needs other than she reached for my hand and seemed calmed by holding it. Stood there for a few minutes and then finished exam. She waved bye when I left. Objective Exam Vital Signs Vital Signs Date Time Temp Pulse Resp B/P (MAP) Pulse Ox O2 Delivery O2 Flow Rate FiO2 07/19/20 09:00 97 Trach Collar 10.00 07/19/20 08:00 36.1 74 20 127/55 (79) 07/18/20 21:45 30 Capillary Refill : Less Than 3 SecondsLess Than 3 Seconds General Appearance: Chronically ill, Thin Respiratory: Lungs Clear, No Respiratory Distress Cardiovascular: Regular Rate, Rhythm, No Murmur Neurologic/Psychiatric: Alert, Oriented x3 Results/Procedures Lab Laboratory Tests 07/19/20 04:38 Patient resulted labs reviewed. Imaging: Reviewed Imaging Report Assessment/Plan Assessment and Plan Assess & Plan/Chief Complaint Acute respiratory failure due to COVID-19 Acute on chronic respiratory failure with hypoxia Staph aureus and Pseudomonas pneumonia Staph aureus bacteremia Tracheostomy in place Continue Decadron on 10mg IV Completed Remdesivir s/p 1 unit convalescent plasma Sputum culture with pansensitive Pseudomonas and Staph aureus Blood culture positive for Staph aureus Repeat blood cultures negative Continue Vanc and Zosyn for pneumonia Tracheostomy cares as needed Supplemental oxygen as needed, weaning down, baseline is 2lpm from [place] Pancytopenia Iron deficiency anemia Anemia of chronic disease Iron studies showed mixed picture Folic acid within normal limits Stable, continue to monitor History of CVA with residual deficits PEG tube in place Colostomy Continue tube feeds DVT Prophylaxis: Lovenox Bleeding at tracheostomy site, resolved Clinical Quality Measures DVT/VTE Risk/Contraindication: Risk Factor Score Per Nursin RFS Level Per Nursing on Admit: 4+=Very High AURORA RUCKER MD Jul 19, 2020 13:43
[2020-07-19] MEDS: ENOXAPARIN 30 MG/0.3 ML (LOVENOX) SYR SC SCH (13:46)
[2020-07-19] MEDS: VANCOMYCIN 750 MG/NS 250 ML IVPB IV SCH ×2 (13:47)
[2020-07-19 16:25] VITALS: BP 163/68
[2020-07-19 23:48] VITALS: BP 161/70
[2020-07-20 05:42] LABS: ALBUMIN 2.9 GM/DL (3.2-4.5); POTASSIUM 3.7 MMOL/L (3.6-5.0)
[2020-07-20 05:43] LABS: CALCIUM 8.8 MG/DL (8.5-10.1)
[2020-07-20 05:44] LABS: TOTAL PROTEIN 5.9 GM/DL (6.4-8.2)
[2020-07-20 05:46] LABS: BILIRUBIN,TOTAL 0.3 MG/DL (0.1-1.0)
[2020-07-20 05:48] LABS: CREATININE SERUM 1.49 MG/DL (0.60-1.30)
[2020-07-20 05:51] LABS: MAGNESIUM 1.8 MG/DL (1.6-2.4)
[2020-07-20] MEDS: POTASSIUM CL 10MEQ/50ML IVPB 50 ML IV SCH (06:27)
[2020-07-20] MEDS: MAGNESIUM 1 GM/100 ML IVPB 100 ML IV SCH (06:27)
[2020-07-20] MEDS: KCL 20 MEQ TAB (K-DUR) PO SCH (06:28)
[2020-07-20 06:53] LABS: BASOPHILS % (AUTO) 0 % (0-10); EOSINOPHILS # (AUTO) 0.1 10^3/uL (0.0-0.3); EOSINOPHILS % (AUTO) 1 % (0-10); HEMATOCRIT 29 % (35-52); HEMOGLOBIN 9.8 g/dL (11.5-16.0); LYMPHOCYTES # (AUTO) 1.2 10^3/uL (1.0-4.0); LYMPHOCYTES % (AUTO) 22 % (12-44); MEAN CORPUSCULAR HEMOGLOBIN 31 pg (25-34); MEAN CORPUSCULAR HGB CONC 33 g/dL (32-36); MEAN CORPUSCULAR VOLUME 94 fL (80-99); MEAN PLATELET VOLUME 12.1 fL (9.0-12.2); MONOCYTES # (AUTO) 0.4 10^3/uL (0.0-1.0); MONOCYTES % (AUTO) 7 % (0-12); NEUTROPHILS # (AUTO) 3.8 10^3/uL (1.8-7.8); NEUTROPHILS % (AUTO) 68 % (42-75); PLATELET COUNT 127 10^3/uL (130-400); WHITE BLOOD COUNT 5.6 10^3/uL (4.3-11.0)
[2020-07-20] MEDS: guaiFENesin (MUCINEX) 600 MG TAB PO SCH ×2 (07:41→20:41)
[2020-07-20] MEDS: HYDROcodone/APAP 10 MG/325 MG (LORTAB) TAB PO SCH ×2 (07:41→20:41)
[2020-07-20] MEDS: PIPERACILLIN/TAZO 4.5 GM/NS 100 ML IV SCH ×2 (07:42)
[2020-07-20 08:00] VITALS: BP 116/53
[2020-07-20] MEDS: ENOXAPARIN 30 MG/0.3 ML (LOVENOX) SYR SC SCH (12:19)
--- NOTE | 2020-07-20 15:05 | Progress Note - Hospitalist ---
Subjective HPI/CC On Admission Date Seen by Provider: Jul 20, 2020 Time Seen by Provider: 15:00 Madelin Shelton is a 60 year old female with history of stroke resulting in chronic debility, tracheostomy, who is a resident of [facility] who presented with bleeding around her tracheostomy site. She had also been having increased secretions. It is difficult for her to communicate and thus the history is difficult to obtain. She is able to shake her head yes and no to answer some questions. She denies being short of breath. She says she is having fevers. She is having increased secretions. She is having pain in her back. Subjective/Events-last exam Pt laying in bed. Appears more comfortable today. Shakes head no when asked if she needs anything or has pain. Objective Exam Vital Signs Vital Signs Date Time Temp Pulse Resp B/P (MAP) Pulse Ox O2 Delivery O2 Flow Rate FiO2 07/20/20 09:00 Trach Collar 10.00 07/20/20 08:00 35.4 70 18 116/53 (74) 97 07/19/20 21:50 30 Capillary Refill : Less Than 3 SecondsLess Than 3 Seconds General Appearance: No Apparent Distress, Chronically ill, Thin Respiratory: Other (trach in place with trach mask) Cardiovascular: Regular Rate, Rhythm, No Murmur Gastrointestinal: Normal Bowel Sounds, Non Tender, Soft Neurologic/Psychiatric: Alert Results/Procedures Lab Laboratory Tests 07/20/20 05:21 07/20/20 06:49 Patient resulted labs reviewed. Imaging: Reviewed Imaging Report Assessment/Plan Assessment and Plan Assess & Plan/Chief Complaint Acute respiratory failure due to COVID-19 Acute on chronic respiratory failure with hypoxia Staph aureus and Pseudomonas pneumonia Staph aureus bacteremia Tracheostomy in place Continue Decadron but decrease to 6mg s/p 1 unit convalescent plasma Sputum culture with pansensitive Pseudomonas and Staph aureus Blood culture positive for Staph aureus Repeat blood cultures negative Continue Vanc and Zosyn for pneumonia Tracheostomy cares as needed Supplemental oxygen as needed, weaning down, baseline is 2lpm from [place] Pancytopenia Iron deficiency anemia Anemia of chronic disease Iron studies showed mixed picture Folic acid within normal limits Stable, continue to monitor History of CVA with residual deficits PEG tube in place Colostomy Continue tube feeds DVT Prophylaxis: Lovenox Bleeding at tracheostomy site, resolved Clinical Quality Measures DVT/VTE Risk/Contraindication: Risk Factor Score Per Nursin RFS Level Per Nursing on Admit: 4+=Very High AURORA RUCKER MD Jul 20, 2020 15:05
[2020-07-20 15:57] VITALS: BP 134/48
[2020-07-21 00:10] VITALS: BP 171/73
--- NOTE | 2020-07-21 00:24 | NUR ---
PEG tube flushed with 240 mL with sterile water at 0000. 15mL of residual. Jevity 1.5 MARTINEZ feeding continued at 40 mL/hr.
[2020-07-21 06:34] LABS: BASOPHILS % (AUTO) 0 % (0-10); EOSINOPHILS # (AUTO) 0.1 10^3/uL (0.0-0.3); EOSINOPHILS % (AUTO) 1 % (0-10); HEMATOCRIT 32 % (35-52); HEMOGLOBIN 10.3 g/dL (11.5-16.0); LYMPHOCYTES # (AUTO) 1.7 10^3/uL (1.0-4.0); LYMPHOCYTES % (AUTO) 27 % (12-44); MEAN CORPUSCULAR HEMOGLOBIN 31 pg (25-34); MEAN CORPUSCULAR HGB CONC 33 g/dL (32-36); MEAN CORPUSCULAR VOLUME 96 fL (80-99); MEAN PLATELET VOLUME 12.2 fL (9.0-12.2); MONOCYTES # (AUTO) 0.5 10^3/uL (0.0-1.0); MONOCYTES % (AUTO) 8 % (0-12); NEUTROPHILS % (AUTO) 62 % (42-75); PLATELET COUNT 139 10^3/uL (130-400); WHITE BLOOD COUNT 6.4 10^3/uL (4.3-11.0)
[2020-07-21 06:49] LABS: ALBUMIN 3.1 GM/DL (3.2-4.5)
[2020-07-21 06:50] LABS: POTASSIUM 3.7 MMOL/L (3.6-5.0)
[2020-07-21 06:51] LABS: CALCIUM 9.3 MG/DL (8.5-10.1)
[2020-07-21 06:52] LABS: TOTAL PROTEIN 6.1 GM/DL (6.4-8.2)
[2020-07-21 06:54] LABS: BILIRUBIN,TOTAL 0.2 MG/DL (0.1-1.0)
[2020-07-21 06:56] LABS: CREATININE SERUM 1.35 MG/DL (0.60-1.30)
--- NOTE | 2020-07-21 06:58 | NUR ---
PEG tube flushed with 240 mL with sterile water at 0600. 10mL of residual. Jevity 1.5 MARTINEZ feeding continued at 40 mL/hr.
[2020-07-21] MEDS: MAGNESIUM 1 GM/100 ML IVPB 100 ML IV SCH (07:01)
[2020-07-21] MEDS: POTASSIUM CL 10MEQ/50ML IVPB 50 ML IV SCH (07:01)
[2020-07-21] MEDS: KCL 20 MEQ TAB (K-DUR) PO SCH (07:01)
[2020-07-21 08:00] VITALS: BP 172/79
[2020-07-21] MEDS: dexAMETHasone 6 MG TAB (DECADRON) PO SCH (09:35)
[2020-07-21] MEDS: guaiFENesin (MUCINEX) 600 MG TAB PO SCH ×2 (09:35→20:44)
[2020-07-21] MEDS: HYDROcodone/APAP 10 MG/325 MG (LORTAB) TAB PO SCH ×2 (09:35→20:44)
[2020-07-21 12:30] VITALS: BP 154/70
--- NOTE | 2020-07-21 13:36 | Progress Note - Hospitalist ---
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 She had also been having increased secretions. It is difficult for her to communicate and thus the history is difficult to obtain. She is able to shake her head yes and no to answer some questions. She denies being short of breath. She says she is having fevers. She is having increased secretions. She is having pain in her back. Subjective/Events-last exam Pt laying in bed. Shakes head when asked if she needs anything. Informed her that oxygen requirement was coming down and she nodded. I called and spoke with her PRATIBHA Flores to update her as well. All questions answered. Objective Exam Vital Signs Vital Signs Date Time Temp Pulse Resp B/P (MAP) Pulse Ox O2 Delivery O2 Flow Rate FiO2 07/21/20 08:08 Trach Collar 6.00 28 07/21/20 08:00 36.2 69 20 172/79 (110) 95 Capillary Refill : Less Than 3 SecondsLess Than 3 Seconds General Appearance: No Apparent Distress, Chronically ill, Thin Neck: Other (trach in place with trach collar ) Respiratory: Lungs Clear, No Respiratory Distress Cardiovascular: Regular Rate, Rhythm, No Murmur Neurologic/Psychiatric: Alert, Other (answers yes and no questions appropriately) Results/Procedures Lab Laboratory Tests 07/21/20 05:55 Patient resulted labs reviewed. Imaging: Reviewed Imaging Report Assessment/Plan Assessment and Plan Assess & Plan/Chief Complaint Acute respiratory failure due to COVID-19 Acute on chronic respiratory failure with hypoxia Staph aureus and Pseudomonas pneumonia Staph aureus bacteremia Tracheostomy in place Continue Decadron at 6mg s/p 1 unit convalescent plasma Sputum culture with pansensitive Pseudomonas and Staph aureus Blood culture positive for Staph aureus Repeat blood cultures negative Complete abx course Tracheostomy cares as needed Supplemental oxygen as needed, weaning down, baseline is 2lpm from [place] Downto 6lpm today Pancytopenia Iron deficiency anemia Anemia of chronic disease Iron studies showed mixed picture Folic acid within normal limits Stable, continue to monitor History of CVA with residual deficits PEG tube in place Colostomy Continue tube feeds DVT Prophylaxis: Lovenox Bleeding at tracheostomy site, resolved Clinical Quality Measures DVT/VTE Risk/Contraindication: Risk Factor Score Per Nursin RFS Level Per Nursing on Admit: 4+=Very High AURORA RUCKER MD Jul 21, 2020 13:36
[2020-07-21] MEDS: ENOXAPARIN 30 MG/0.3 ML (LOVENOX) SYR SC SCH (13:44)
[2020-07-21 16:29] VITALS: BP 154/67
[2020-07-21 23:35] VITALS: BP 168/67
[2020-07-22 06:15] LABS: BASOPHILS % (AUTO) 0 % (0-10); EOSINOPHILS # (AUTO) 0.1 10^3/uL (0.0-0.3); EOSINOPHILS % (AUTO) 2 % (0-10); HEMATOCRIT 32 % (35-52); HEMOGLOBIN 10.6 g/dL (11.5-16.0); LYMPHOCYTES # (AUTO) 1.8 10^3/uL (1.0-4.0); LYMPHOCYTES % (AUTO) 27 % (12-44); MEAN CORPUSCULAR HEMOGLOBIN 31 pg (25-34); MEAN CORPUSCULAR HGB CONC 33 g/dL (32-36); MEAN CORPUSCULAR VOLUME 95 fL (80-99); MEAN PLATELET VOLUME 12.3 fL (9.0-12.2); MONOCYTES # (AUTO) 0.6 10^3/uL (0.0-1.0); MONOCYTES % (AUTO) 9 % (0-12); NEUTROPHILS # (AUTO) 4.2 10^3/uL (1.8-7.8); NEUTROPHILS % (AUTO) 62 % (42-75); PLATELET COUNT 147 10^3/uL (130-400); WHITE BLOOD COUNT 6.8 10^3/uL (4.3-11.0)
[2020-07-22 06:30] LABS: ALBUMIN 3.2 GM/DL (3.2-4.5); POTASSIUM 3.8 MMOL/L (3.6-5.0)
[2020-07-22 06:31] LABS: CALCIUM 9.2 MG/DL (8.5-10.1)
[2020-07-22 06:32] LABS: TOTAL PROTEIN 6.3 GM/DL (6.4-8.2)
[2020-07-22 06:34] LABS: BILIRUBIN,TOTAL 0.3 MG/DL (0.1-1.0)
[2020-07-22 06:36] LABS: CREATININE SERUM 1.26 MG/DL (0.60-1.30)
[2020-07-22] MEDS: POTASSIUM CL 10MEQ/50ML IVPB 50 ML IV SCH (06:41)
[2020-07-22] MEDS: KCL 20 MEQ TAB (K-DUR) PO SCH (06:42)
[2020-07-22] MEDS: MAGNESIUM 1 GM/100 ML IVPB 100 ML IV SCH (06:42)
[2020-07-22 08:00] VITALS: BP 130/60
[2020-07-22] MEDS: dexAMETHasone 6 MG TAB (DECADRON) PO SCH (08:53)
[2020-07-22] MEDS: HYDROcodone/APAP 10 MG/325 MG (LORTAB) TAB PO SCH ×2 (08:53→21:15)
[2020-07-22] MEDS: guaiFENesin (MUCINEX) 600 MG TAB PO SCH ×2 (08:53→21:15)
--- NOTE | 2020-07-22 12:26 | Progress Note - Hospitalist ---
Subjective HPI/CC On Admission Date Seen by Provider: Jul 22, 2020 Time Seen by Provider: 12:23 Madelin Shelton is a 60 year old female with history of stroke resulting in chronic debility, tracheostomy, who is a resident of [facility] who presented with bleeding around her tracheostomy site. She had also been having increased secretions. It is difficult for her to communicate and thus the history is difficult to obtain. She is able to shake her head yes and no to answer some questions. She denies being short of breath. She says she is having fevers. She is having increased secretions. She is having pain in her back. Subjective/Events-last exam Pt laying in bed. Shakes head no when asked if she needed anything. Nods when she is told she's doing ok. Objective Exam Vital Signs Vital Signs Date Time Temp Pulse Resp B/P (MAP) Pulse Ox O2 Delivery O2 Flow Rate FiO2 07/22/20 11:39 93 Trach Collar 6.00 35 07/22/20 08:00 36.4 64 20 130/60 (83) Capillary Refill : Less Than 3 SecondsLess Than 3 Seconds General Appearance: No Apparent Distress, Chronically ill, Cachetic Respiratory: Decreased Breath Sounds; No Wheezing; Other (trach with trach collar in place) Cardiovascular: Regular Rate, Rhythm, No Murmur Neurologic/Psychiatric: Alert, Other (appears oriented when asked questions) Results/Procedures Lab Laboratory Tests 07/22/20 05:23 Patient resulted labs reviewed. Imaging: Reviewed Imaging Report Assessment/Plan Assessment and Plan Assess & Plan/Chief Complaint Acute respiratory failure due to COVID-19 Acute on chronic respiratory failure with hypoxia Staph aureus and Pseudomonas pneumonia Staph aureus bacteremia Tracheostomy in place Continue Decadron at 6mg s/p 1 unit convalescent plasma Sputum culture with pansensitive Pseudomonas and Staph aureus Blood culture positive for Staph aureus Repeat blood cultures negative Completed abx course Tracheostomy cares as needed Supplemental oxygen as needed, weaning down, baseline is 2lpm from [place] At 7lpm- will need to discuss with [facility] regarding level they are comfortable taking back Pancytopenia Iron deficiency anemia Anemia of chronic disease Iron studies showed mixed picture Folic acid within normal limits Stable, continue to monitor History of CVA with residual deficits PEG tube in place Colostomy Continue tube feeds DVT Prophylaxis: Lovenox Bleeding at tracheostomy site, resolved Clinical Quality Measures DVT/VTE Risk/Contraindication: Risk Factor Score Per Nursin RFS Level Per Nursing on Admit: 4+=Very High AURORA RUCKER MD Jul 22, 2020 12:26
[2020-07-22] MEDS: ENOXAPARIN 30 MG/0.3 ML (LOVENOX) SYR SC SCH (13:29)
[2020-07-22] MEDS ORDERED: ACETAMINOPHEN 325 MG TABLET ONE ×2 (13:29→18:29)
[2020-07-22 16:28] VITALS: BP 134/74
[2020-07-22] MEDS: ACETAMINOPHEN 325 MG TABLET GT PRN (18:34)
[2020-07-23 00:33] VITALS: BP 157/75
[2020-07-23] MEDS: ACETAMINOPHEN 325 MG TABLET GT PRN ×2 (00:37→13:10)
[2020-07-23 06:30] LABS: BASOPHILS % (AUTO) 0 % (0-10); EOSINOPHILS # (AUTO) 0.1 10^3/uL (0.0-0.3); EOSINOPHILS % (AUTO) 1 % (0-10); HEMATOCRIT 32 % (35-52); HEMOGLOBIN 10.6 g/dL (11.5-16.0); LYMPHOCYTES # (AUTO) 1.5 10^3/uL (1.0-4.0); LYMPHOCYTES % (AUTO) 22 % (12-44); MEAN CORPUSCULAR HEMOGLOBIN 32 pg (25-34); MEAN CORPUSCULAR HGB CONC 33 g/dL (32-36); MEAN CORPUSCULAR VOLUME 97 fL (80-99); MEAN PLATELET VOLUME 11.5 fL (9.0-12.2); MONOCYTES # (AUTO) 0.6 10^3/uL (0.0-1.0); MONOCYTES % (AUTO) 8 % (0-12); NEUTROPHILS # (AUTO) 4.8 10^3/uL (1.8-7.8); NEUTROPHILS % (AUTO) 68 % (42-75); PLATELET COUNT 141 10^3/uL (130-400)
--- NOTE | 2020-07-23 06:38 | NUR ---
0000 - PEG tube flushed with 240 mL with sterile water. 15mL of residual. Jevity 1.5 MARTINEZ feeding continued at 40 mL/hr. 0600 - PEG tube flushed with 240 mL with sterile water. 20mL of residual. Jevity 1.5 MARTINEZ feeding continued at 40 mL/hr.
[2020-07-23 06:44] LABS: ALBUMIN 3.1 GM/DL (3.2-4.5)
[2020-07-23 06:45] LABS: POTASSIUM 3.9 MMOL/L (3.6-5.0)
[2020-07-23 06:46] LABS: CALCIUM 9.4 MG/DL (8.5-10.1)
[2020-07-23 06:47] LABS: TOTAL PROTEIN 6.2 GM/DL (6.4-8.2)
[2020-07-23 06:49] LABS: BILIRUBIN,TOTAL 0.2 MG/DL (0.1-1.0)
[2020-07-23] MEDS: POTASSIUM CL 10MEQ/50ML IVPB 50 ML IV SCH (06:49)
[2020-07-23] MEDS: KCL 20 MEQ TAB (K-DUR) PO SCH (06:49)
[2020-07-23 06:51] LABS: CREATININE SERUM 1.27 MG/DL (0.60-1.30)
[2020-07-23] MEDS: MAGNESIUM 1 GM/100 ML IVPB 100 ML IV SCH (06:52)
[2020-07-23 08:00] VITALS: BP 120/70
[2020-07-23] MEDS: dexAMETHasone 6 MG TAB (DECADRON) PO SCH (08:37)
[2020-07-23] MEDS: guaiFENesin (MUCINEX) 600 MG TAB PO SCH (08:38)
[2020-07-23] MEDS: HYDROcodone/APAP 10 MG/325 MG (LORTAB) TAB PO SCH (08:38)
--- NOTE | 2020-07-23 12:14 | NUR ---
MEGHNA FINALIZED DISCHARGE PLAN: Patient is returning to [facility] today via [facility]. Information faxed to [facility]. Contacted [facility] and they are able to accept the patient back today. Contacted the DPOA Sandra Rios and she is also in agreement for transport back to [facility] today. Updated clinical info faxed to [facility]. Primary care nurse updated on the above information. She will finalize and print the discharge and add that information to the discharge packet. We will also need to let [facility] know when EMS is here to transport patient. No further interventions noted at this time. Addendum: 07/24/20 at 0912 by JAMARCUS MACHADO RN Per request patient returned group home care
[2020-07-23] MEDS: ENOXAPARIN 30 MG/0.3 ML (LOVENOX) SYR SC SCH (13:10)
--- NOTE | 2020-07-23 15:30 | NUR ---
FLORENCIO MCINTYRE discharged to [facility]. FAMILY notified of discharge and report given to SCOTTIE GONZALES. FLORENCIO MCINTYRE belongings sent with PATIENT. Skin dry and intact; no breakdown noted. FLORENCIO MCINTYRE discharged with tracheostomy. Vital signs are/are not stable at time of discharge. Condition is stable at time of discharge. Discharge instructions and copies of H&P, discharge summary, physician's order, lab reports, consultation reports, other dictated reports, diagnostic imaging reports, Advance Directive, eMAR, vital signs, intake and output sent with . Patient discharged from 1 on at . FLORENCIO MCINTYRE left floor via [facility], accompanied by EMS. FLORENCIO MCINTYRE and family/DPOA notified and verbalize understanding of discharge to [facility].
--- NOTE | 2020-07-24 09:53 | Physician Query Clarification ---
PQ-Further Specificity Admission/Discharge Admission Date: Jul 13, 2020 at 08:24 Discharge Date: Jul 23, 2020 at 15:35 Dr. Harvey, The medical record reflects the following clinical scenario: History/Risk Factors: Covid, pneumonia, acute on chronic respiratory failure w/hypoxia, tracheostomy status Clinical Findings: blood culture grew out MRSA Treatment: IV Cefepime, IV Piperacillin Question: Can you further specify MRSA bacteremia per the clinical indicators above? Please document a response in the Progress Notes or Discharge Summary. 1. MRSA sepsis 2. MRSA bacteremia. No sepsis 3. Other, with explanation of the clinical findings. 4. Clinically undetermined, no explanation for the clinical findings. PHYSICIAN RESPONSE Can you specify per above: 1 Please remember a lack of response to the above will prompt a phone page by CDI/Coding staff. In responding to this query, please exercise your independent professional judgment. The purpose of this communication is to more accurately reflect the complexity of your patients condition. The fact that a question is asked does not imply that any particular answer is desired or expected. Thank you for your timely response to this clarification. Requestors name: Makenna [email or web address] THIS PHYSICIAN QUERY FORM IS A PERMANENT PART OF THE MEDICAL RECORD MAKENNA RUEDA Jul 24, 2020 09:53 AURORA HARVEY MD Jul 26, 2020 20:23
== END 2020-07-23 15:35 | DRG 871 ==
LOC: ER 04:21 → EDUNIT# 04:21 → ICU 08:24 → 4TH 07-14 12:46
PROVIDERS: ADMIT Internal Medicine; ATTEND Internal Medicine
PROC: XW033E5 Introduction of Remdesivir Anti-infective into Peripheral Vein, Percutaneous Approach, New Technology Group 5 (ICD-10-PCS; principal; 2020-07-13)
PROC: XW13325 Transfusion of Convalescent Plasma (Nonautologous) into Peripheral Vein, Percutaneous Approach, New Technology Group 5 (ICD-10-PCS; 2020-07-13)
DX: A41.02 Sepsis due to Methicillin resistant Staphylococcus aureus (principal); U07.1 COVID-19; J12.89 Other viral pneumonia; J15.212 Pneumonia due to Methicillin resistant Staphylococcus aureus; J15.1 Pneumonia due to Pseudomonas; J96.21 Acute and chronic respiratory failure with hypoxia; R04.2 Hemoptysis; D61.818 Other pancytopenia; A49.02 Methicillin resistant Staphylococcus aureus infection, unspecified site; Z93.0 Tracheostomy status; I69.364 Other paralytic syndrome following cerebral infarction affecting left non-dominant side; I69.391 Dysphagia following cerebral infarction; I69.320 Aphasia following cerebral infarction; R13.10 Dysphagia, unspecified; J44.9 Chronic obstructive pulmonary disease, unspecified; I25.10 Atherosclerotic heart disease of native coronary artery without angina pectoris; I10 Essential (primary) hypertension; K21.9 Gastro-esophageal reflux disease without esophagitis; E03.9 Hypothyroidism, unspecified; F41.9 Anxiety disorder, unspecified; F32.9 Major depressive disorder, single episode, unspecified; D50.9 Iron deficiency anemia, unspecified; D63.8 Anemia in other chronic diseases classified elsewhere; Z93.1 Gastrostomy status; Z73.0 Burn-out
CPT/HCPCS: 36415; 51702; 71045; 80053; 80202; 81000; 82728; 82746; 82962; 83540; 83605; 83615; 83735; 84100; 84145; 85025; 85379; 85610; 85730; 86141; 86900; 86901; 87040; 87070; 87077; 87088; 87186; 87205; 94640; 94760; 96374; 96375

== ENCOUNTER 2021-06-02 21:57 | Emergency (ER) | payer MEDICARE, MEDICAID ==
[~2021-06-02] VITALS: Ht 160 cm; Wt 68.0 kg
[~2021-06-02 21:57] MED LIST changes: +ACET325C7 PEG; +ASPI-1238 PEG; +GLYCOPYRROLATE PO; +HYDR-3817 PEG; +LACT1TAB9 PEG; +LEVO125T6 PO; +LORA5SOL7 PEG; +ONDA4SOL11 PEG; +PANCREAZE PEG; +RT-ALBUINH IH; +SALI325S2 TP; +SERT20OR6 GT; +ZINC50TA58 PEG; +ZINC56.715 TP; +[UNRECOGNIZED DRUG - OTHER] PEG
--- NOTE | 2021-06-02 22:22 | ED GI ---
General Chief Complaint: Catheter/Drain/Tube Problems Stated Complaint: PEG TUBE MALFUNCTION Source of Information: Patient Exam Limitations: No Limitations History of Present Illness Date Seen by Provider: Jun 02, 2021 Time Seen by Provider: 22:17 Initial Comments To ER by EMS [facility] with reports of some bloody drainage around her PEG tube ostomy site. She resides at [facility] with a trach and PEG tube n.p.o. 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 The nurse noticed some brownish discharge around the stoma this evening and cleaned it up then redressed it and again noticed some brownish discharge with bright red blood around it. When asked if she has any pain she points to her right knee Timing/Duration: 1-2 Days Severity/Quality: Moderate Radiation: No Radiation Activities at Onset: None Allergies and Home Medications Allergies Coded Allergies: morphine (Unverified Allergy, Unknown, 07/13/20) Patient Home Medication List Home Medication List Reviewed: Yes Acetaminophen (Tylenol) 325 Mg Capsule, 650 MG PEG Q4H PRN for HEADACHE, (Reported) Entered as Reported by: KISHORE HARRIS on 07/16/20 0954 Albuterol Sulfate (Proair Hfa) 1 Puff Puff, 2 PUFF IH Q4H PRN for SHORTNESS OF BREATH, (Reported) Entered as Reported by: KISHORE HARRIS on 07/16/20 0954 Amlodipine Besylate (Amlodipine Besylate) 10 Mg Tablet, 10 MG PEG DAILY, (Reported) Entered as Reported by: SHABNAM VICK on 04/21/17 1038 Aspirin (Aspirin EC) 81 Mg Tablet., 81 MG PEG DAILY, (Reported) Entered as Reported by: KISHORE HARRIS on 07/16/20 0954 Dextran 70/Hypromellose (Artificial Tears) 1 Each Droperette, 2 DROPS OU Q6H PRN for DRY EYES, (Reported) Entered as Reported by: JAMARCUS LOPEZ on 05/19/19 1615 Diphenhydramine HCl (Benadryl) 25 Mg Capsule, 25 MG PEG Q4H PRN for RASH, (Reported) Entered as Reported by: JAMARCUS LOPEZ on 05/19/19 1615 Hydrocodone Bit/Acetaminophen (HYDROcodone/APAP 7.5/325 TAB) 1 Each Tablet, 1 TAB PEG BID, (Reported) Entered as Reported by: JAMARCUS LOPEZ on 05/19/19 161 Hydrocodone/Acetaminophen (Hydrocodone-Acetamin 7.5-325) 1 Each Tablet, 1 EA PEG DAILY PRN for PAIN-MODERATE (5-7), (Reported) Entered as Reported by: KISHORE HARRIS on 07/16/20 09 Hyoscyamine Sulfate (Levsin-Sl) 0.125 Mg Tab.subl, 0.125 MG SL Q4H PRN for SECRETIONS, (Reported) Entered as Reported by: JAMARCUS LOPEZ on 05/19/191614 Lactobacillus Acidophilus (Acidophilus) 1 Each Tablet, 1 EACH PEG DAILY, (Reported) Entered as Reported by: KISHORE HARRIS on 07/16/20 09 Levothyroxine Sodium (Levothyroxine Sodium) 125 Mcg Tablet, 125 MCG PO DAILY, (Reported) Entered as Reported by: KISHORE HARRIS on 07/16/20 09 Loratadine (Claritin) 5 Mg/5 Ml Solution, 10 ML PEG DAILY, (Reported) Entered as Reported by: KISHORE HARRIS on 07/16/20 09 Neomycin Huizar/Bacitrac Zn/Poly (Neosporin Ointment) 28.3 Gm Oint...g., TP DAILY, (Reported) Entered as Reported by: SHABNAM VICK on 04/21/17 1038 Omeprazole (Omeprazole) 20 Mg Capsule.dr, 20 MG PEG HS, (Reported) Entered as Reported by: JAMARCUS LOPEZ on 05/19/191614 Ondansetron HCl (Ondansetron HCl) 4 Mg/5 Ml Solution, 5 ML PEG Q6H PRN for NAUSEA/VOMITING-1ST LINE, (Reported) Entered as Reported by: KISHORE HARRIS on 07/16/20 09 Salicylic Acid (Selsun Blue) 325 Ml Shampoo, 1 APPLIC TP AJ RANGEL THU, (Reported) Entered as Reported by: KISHORE HARRIS on 07/16/20 09 Sertraline HCl (Sertraline HCl) 20 Mg/1 Ml Oral.conc, 2.5 ML GT 1800, (Reported) Entered as Reported by: KISHORE HARRIS on 07/16/20953 Zinc (Zinc) 50 Mg Tablet, 50 MG PEG DAILY, (Reported) Entered as Reported by: KISHORE HARRIS on 07/16/20953 Zinc Oxide (Zinc Oxide) 56.7 Gm Oint...g., 1 APPLIC TP BID PRN, (Reported) Entered as Reported by: KISHORE HARRIS on 07/16/20953 [Glycopyrrolate] , 1 MG PO Q8H, (Reported) Entered as Reported by: KISHORE HARRIS on 07/16/20953 [Pancreaze/Bicarb Christopher] , PEG EVERY 1 HOUR PRN for PEG CLOG, (Reported) Entered as Reported by: KISHORE HARRIS on 07/16/20953 Review of Systems Review of Systems Constitutional: see HPI EENTM: No Symptoms Reported Respiratory: No Symptoms Reported Cardiovascular: No Symptoms Reported Gastrointestinal: See HPI Genitourinary: No Symptoms Reported Musculoskeletal: no symptoms reported Skin: no symptoms reported Psychiatric/Neurological: No Symptoms Reported Endocrine: No Symptoms Reported Hematologic/Lymphatic: No Symptoms Reported Past Teedgke-Swwjok-Chvixl Hx Seasonal Allergies Seasonal Allergies: No Past Medical History Surgeries: Yes Bowel Surgery, Tracheostomy Respiratory: No (TRACH) Asthma, COPD Currently Using CPAP: No Currently Using BIPAP: No Cardiac: Yes Coronary Artery Disease, Hypertension, Peripheral Vascular Neurological: Yes Stroke Sexually Transmitted Disease: No HIV/AIDS: No Genitourinary: No Gastrointestinal: Yes (PEG TUBE) Gastroesophageal Reflux Musculoskeletal: Yes Contracture Endocrine: Yes Hypothyroidsim HEENT: No Cancer: No Psychosocial: Yes Anxiety, Depression Integumentary: No Blood Disorders: No Family Medical History Patient reports no known family medical history. Unable to obtain due to clinical condition Physical Exam Vital Signs Capillary Refill : Height/Weight/BMI Height: 5'0.00" Weight: 136lbs. 9.6oz. [id number]; 15.00 BMI Method:Estimated General Appearance: WD/WN, no apparent distress HEENT: PERRL/EOMI, normal ENT inspection Neck: non-tender, full range of motion Respiratory: no respiratory distress, no accessory muscle use Gastrointestinal: normal bowel sounds, non tender, soft, other (PEG tube has some granulation tissue around it that is a little friable and bleeds easily but no active bleeding. Minor amount of dark brownish typical gastric contents on the washcloth that was around it from the group home. There are no cellulitis changes no crepitus. When asked of pain she only points to her knee and does not grimace when I palpate her abdomen. Bowel sounds are hypoactive but present and there is a large amount of watery stool discharge through the right ileostomy.) Extremities: normal range of motion, non-tender Neurologic/Psychiatric: alert Skin: normal color, warm/dry Progress/Results/Core Measures Results/Orders My Orders Orders - HUY DANGELO APRN Hydrocodone/Apap 5/325 Tablet (Lortab 5 (06/02/21 22:30) Departure Impression Primary Impression: PEG (percutaneous endoscopic gastrostomy) status Disposition: 01 HOME, SELF-CARE Condition: Stable Departure-Patient Inst. Decision time for Depature: 22:21 Referrals: LETY MCDANIEL MD (PCP) Primary Care Physician Patient Instructions: NO INSTRUCTIONS GIVEN Add. Discharge Instructions: All discharge instructions reviewed with patient and/or family. Voiced understanding. HUY DANGELO APRN Jun 02, 2021 22:22
[2021-06-02] MEDS ORDERED: HYDROcodone/APAP 5 MG/325 MG (LORTAB) TAB PO ONE (22:30)
[2021-06-03 00:32] VITALS: BP 151/66
[2021-06-03] MEDS ORDERED: DIATRIZOATE MEGLUM/SODIUM 37% 120 ML (GASTROGRAFIN) PO ONE (00:45)
--- NOTE | 2021-06-03 07:11 | Diagnostic Imaging Report ---
Indication: Evaluation of PEG tube Abdomen x-ray was obtained after injection of contrast into the indwelling gastric tube. There is opacification of the gastric pylorus and duodenum. There is no evidence of contrast leak. IMPRESSION: Gastrostomy tube appears to be in good position in the distal stomach. Dictated by: Dictated on workstation # [id number]
== END 2021-06-03 00:34 | disposition home or self-care (01) ==
LOC: EDUNIT# 21:57 → ER 22:02
DX: Z93.1 Gastrostomy status (principal); J44.9 Chronic obstructive pulmonary disease, unspecified; I10 Essential (primary) hypertension; K21.9 Gastro-esophageal reflux disease without esophagitis; F41.9 Anxiety disorder, unspecified; F32.9 Major depressive disorder, single episode, unspecified; I25.10 Atherosclerotic heart disease of native coronary artery without angina pectoris; E03.9 Hypothyroidism, unspecified; Z86.73 Personal history of transient ischemic attack (TIA), and cerebral infarction without residual deficits; Z79.890 Hormone replacement therapy; Z79.899 Other long term (current) drug therapy; Z79.82 Long term (current) use of aspirin
CPT/HCPCS: 49465

== ENCOUNTER 2022-08-16 12:10 | Emergency (ER) | payer MEDICARE, MEDICAID ==
[~2022-08-16 12:10] MED LIST changes: +ALBU8.5H6 IH; -NYST15CR TP; +NYST15CR35 TP; -RT-ALBUINH IH
--- NOTE | 2022-08-16 12:32 | ED GI ---
General Chief Complaint: Catheter/Drain/Tube Problems Stated Complaint: TUBE PLACEMENT Nursing Triage Note: [facility] ed with [facility] with c/o peg tube out, unsure how long it has been out. [facility] staff attempted to replace it and were unsuccessful Source of Information: Patient Exam Limitations: No Limitations History of Present Illness Date Seen by Provider: Aug 16, 2022 Time Seen by Provider: 12:22 Initial Comments 62-year-old female chronically disabled mentally handicapped individual presents after her G-tube was accidentally dislodged about 2 hours prior to arrival. It got caught on a table per report. Functioning normally prior. Allergies and Home Medications Allergies Coded Allergies: morphine (Unverified Allergy, Unknown, 07/13/20) Patient Home Medication List Home Medication List Reviewed: Yes Acetaminophen (Tylenol) 325 Mg Capsule, 650 MG PEG Q4H PRN for HEADACHE, (Reported) Entered as Reported by: KISHORE HARRIS on 07/16/20 0954 Albuterol Sulfate (Ventolin Hfa) 1 Puff Puff, 2 PUFF IH Q4H PRN for SHORTNESS OF BREATH, (Reported) Entered as Reported by: KISHORE HARRIS on 07/16/20 0954 Amlodipine Besylate (Amlodipine Besylate) 10 Mg Tablet, 10 MG PEG DAILY, (Reported) Entered as Reported by: SHABNAM VICK on 04/21/17 1038 Aspirin (Aspirin EC) 81 Mg Tablet.dr, 81 MG PEG DAILY, (Reported) Entered as Reported by: KISHORE HARRIS on 07/16/20 0954 Dextran 70/Hypromellose (Artificial Tears) 1 Each Droperette, 2 DROPS OU Q6H PRN for DRY EYES, (Reported) Entered as Reported by: JAMARCUS LOPEZ on 05/19/19 1615 Diphenhydramine HCl (Benadryl) 25 Mg Capsule, 25 MG PEG Q4H PRN for RASH, (Reported) Entered as Reported by: JAMARCUS LOPEZ on 05/19/19 1615 Hydrocodone Bit/Acetaminophen (HYDROcodone/APAP 7.5/325 TAB) 1 Each Tablet, 1 TAB PEG BID, (Reported) Entered as Reported by: JAMARCUS LOPEZ on 05/19/19 1615 Hydrocodone/Acetaminophen (Hydrocodone-Acetamin 7.5-325) 1 Each Tablet, 1 EA PEG DAILY PRN for PAIN-MODERATE (5-7), (Reported) Entered as Reported by: KISHORE HARRIS on 07/16/20 09 Hyoscyamine Sulfate (Levsin-Sl) 0.125 Mg Tab.subl, 0.125 MG SL Q4H PRN for SECRETIONS, (Reported) Entered as Reported by: JAMARCUS LOPEZ on 05/19/19 161 Lactobacillus Acidophilus (Acidophilus) 1 Each Tablet, 1 EACH PEG DAILY, (Reported) Entered as Reported by: KISHORE HARRIS on 07/16/20953 Levothyroxine Sodium (Levothyroxine Sodium) 125 Mcg Tablet, 125 MCG PO DAILY, (Reported) Entered as Reported by: KISHORE HARRIS on 07/16/20953 Loratadine (Claritin) 5 Mg/5 Ml Solution, 10 ML PEG DAILY, (Reported) Entered as Reported by: KISHORE HARRIS on 07/16/20953 Neomycin Huizar/Bacitrac Zn/Poly (Neosporin Ointment) 28.3 Gm Oint...g., TP DAILY, (Reported) Entered as Reported by: SHABNAM VICK on 04/21/17 1038 Omeprazole (Omeprazole) 20 Mg Capsule.dr, 20 MG PEG HS, (Reported) Entered as Reported by: JAMARCUS LOPEZ on 05/19/19 161 Ondansetron HCl (Ondansetron HCl) 4 Mg/5 Ml Solution, 5 ML PEG Q6H PRN for NAUSEA/VOMITING-1ST LINE, (Reported) Entered as Reported by: KISHORE HARRIS on 07/16/20953 Salicylic Acid (Selsun Blue) 325 Ml Shampoo, 1 APPLIC TP AJ RANGEL,LUIS ENRIQUE, (Reported) Entered as Reported by: KISHORE HARRIS on 07/16/20 09 Sertraline HCl (Sertraline HCl) 20 Mg/1 Ml Oral.conc, 2.5 ML GT 1800, (Reported) Entered as Reported by: KISHORE HARRIS on 07/16/20 09 Zinc (Zinc) 50 Mg Tablet, 50 MG PEG DAILY, (Reported) Entered as Reported by: KISHORE HARRIS on 07/16/20 09 Zinc Oxide (Zinc Oxide) 56.7 Gm Oint...g., 1 APPLIC TP BID PRN, (Reported) Entered as Reported by: KISHORE HARRIS on 07/16/20953 [Glycopyrrolate] , 1 MG PO Q8H, (Reported) Entered as Reported by: KISHORE HARRIS on 07/16/20953 [Pancreaze/Bicarb Christopher] , PEG EVERY 1 HOUR PRN for PEG CLOG, (Reported) Entered as Reported by: KISHORE HARRIS on 07/16/20953 Review of Systems Review of Systems Constitutional: no symptoms reported EENTM: No Symptoms Reported Respiratory: No Symptoms Reported Cardiovascular: No Symptoms Reported Gastrointestinal: Other (Feeding tube dislodged) Genitourinary: No Symptoms Reported Musculoskeletal: no symptoms reported Skin: no symptoms reported Psychiatric/Neurological: No Symptoms Reported Endocrine: No Symptoms Reported Hematologic/Lymphatic: No Symptoms Reported Past Kxxwuuu-Ruzlhj-Dnowqr Hx Patient Social History Tobacco Use?: No Use of E-Cig and/or Vaping dev: No Substance use?: No Alcohol Use?: No Immunizations Up To Date Influenza Vaccine Up-to-Date: Yes; Up-to-Date Seasonal Allergies Seasonal Allergies: No Past Medical History Surgery/Hospitalization HX: cva, anxiety, atherosclerosis, major depressive disorder, ileostomy, hypothyroidism, essential htn, aphasia, neuromuscular dysfunction of the bladder, tracheostomy Surgeries: Yes Bowel Surgery, Tracheostomy Respiratory: No (TRACH) Asthma, COPD Currently Using CPAP: No Currently Using BIPAP: No Cardiac: Yes Coronary Artery Disease, Hypertension, Peripheral Vascular Neurological: Yes Stroke Sexually Transmitted Disease: No HIV/AIDS: No Genitourinary: No Gastrointestinal: Yes (PEG TUBE) Gastroesophageal Reflux Musculoskeletal: Yes Contracture Endocrine: Yes Hypothyroidsim HEENT: No Cancer: No Psychosocial: Yes Anxiety, Depression Integumentary: No Blood Disorders: No Family Medical History Reviewed Nursing Family Hx Patient reports no known family medical history. No Pertinent Family Hx Unable to obtain due to clinical condition Physical Exam Vital Signs Vital Signs - First Documented 08/16/22 12:22 Temp 35.7 Pulse 61 Resp 16 B/P (MAP) 180/71 (107) Pulse Ox 97 Capillary Refill : Less Than 3 Seconds Height/Weight/BMI Height: 5'0.00" Weight: 136lbs. 9.6oz. 61.964711dw; 26.00 BMI Method:Estimated General Appearance: WD/WN, no apparent distress Respiratory: chest non-tender, lungs clear, other (Tracheostomy in place) Cardiovascular: regular rate, rhythm, no murmur Gastrointestinal: other (Feeding tube dislodged from left mid abdomen.) Neurologic/Psychiatric: alert Skin: normal color, warm/dry Progress/Results/Core Measures Results/Orders Vital Signs/I&O 08/16/22 12:22 Temp 35.7 Pulse 61 Resp 16 B/P (MAP) 180/71 (107) Pulse Ox 97 Blood Pressure Mean: 107 Departure Communication (Admissions) Feeding tube was replaced at bedside with no complications. Aspirated gastric contents without difficulty. Patient tolerated well. Impression Primary Impression: Encounter for feeding tube placement Additional Impression: Complication of feeding tube Disposition: HOME, SELF-CARE Condition: Stable Departure-Patient Inst. Referrals: LETY MCDANIEL MD (PCP/Family) Primary Care Physician Add. Discharge Instructions: Your feeding tube was replaced at the bedside. Continue feedings as previous. Return to the emergency department for any severe concerns. All discharge instructions reviewed with patient and/or family. Voiced understanding. JONI EDEN DO Aug 16, 2022 12:32
[2022-08-16 12:45] VITALS: BP 180/71
== END 2022-08-16 12:45 | disposition home or self-care (01) ==
LOC: EDUNIT# 12:10 → ER 12:12
DX: Z46.59 Encounter for fitting and adjustment of other gastrointestinal appliance and device (principal); K94.20 Gastrostomy complication, unspecified; Z87.19 Personal history of other diseases of the digestive system
CPT/HCPCS: 99281

== ENCOUNTER → 2022-09-02 | Outpatient (CLI) | payer MEDICARE, MEDICAID | LOC: CARD 11:58 | PROVIDERS: ATTEND Physician Assistant | DX: E21.3 Hyperparathyroidism, unspecified (principal) ==